=== PATIENT | female | born 1990 | race African-American/Black ===

== ENCOUNTER 2016-11-24 09:01 | Inpatient (IN) | payer MEDICAID ==
[~2016-11-24] VITALS: Ht 162.6 cm; Wt 47.6 kg
[2016-11-24 09:10] VITALS: BP 112/87
[2016-11-24] MEDS ORDERED: Ketorolac 30mg Inj IV ONE (09:30)
--- NOTE | 2016-11-24 09:39 | Emergency Room Report ---
History of Present Illness General Chief Complaint: Abdominal Pain Source: Patient Present Illness HPI This patient states that she had been admitted to [facility] for several days and was discharged yesterday. She states that she has pancreatitis. She states that she does not know why she has pancreatitis. She denies alcohol or drug use. She does not take any medications. She states that since 2 AM this morning she has had nausea, vomiting and epigastric pain. She states that she did have pancreatitis in the past but this is more than 3 years ago. She does not know why she is had a recurrence. She denies dysuria hematuria. She has no other complaints. Allergies: Coded Allergies: No Known Allergies (Unverified , 11/24/16) Patient History Past Medical History: see triage record, asthma, other - pancreatitis Social History: Denies: alcohol use, drug use, smoking Last Menstrual Period: 11/23/2016 Reviewed Nursing Documentation: PMH: Agreed, PSxH: Agreed Nursing Documentation-PMH Past Medical History: No History, Except For Hx Asthma: Yes Hx Gastrointestinal Problems: Yes - Pancreatitis Review of Systems All Other Systems: negative except mentioned in HPI Physical Exam Vital Signs Date Time Temp Pulse Resp B/P Pulse Ox O2 Delivery O2 Flow Rate FiO2 11/24/16 08:52 99.0 86 16 112/87 99 Room Air Sp02 EP Interpretation: reviewed, normal General Appearance: no apparent distress, alert, GCS 15, non-toxic Head: normocephalic, atraumatic Eyes: bilateral eye PERRL, bilateral eye normal inspection ENT: hearing grossly normal, normal pharynx, no angioedema, normal voice Neck: full range of motion, supple/symm/no masses Respiratory: chest non-tender, lungs clear, normal breath sounds, speaking full sentences Cardiovascular #1: regular rate, rhythm, no edema Gastrointestinal: soft, non-distended, no guarding, no rebound, tenderness - epigastrium Rectal: deferred Musculoskeletal: back normal, gait/station normal, normal range of motion, non- tender Neurologic: alert, oriented x3, responsive, motor strength/tone normal, sensory intact, speech normal Psychiatric: judgement/insight normal, memory normal, mood/affect normal, no suicidal/homicidal ideation Skin: normal color, no rash, warm/dry, well hydrated Medical Decision Making Diagnostic Impression: Primary Impression: Hepatitis ER Course This patient presents after being discharged from [facility] for what she reports as a pancreatitis. She states she had a history of pancreatitis but has not had a episode in 3 years. Initially, I had suspected ongoing pancreatitis. However, the patient has a normal lipase and elevated LFTs and bilirubin consistent with biliary obstruction. I suspect this patient has choledocholithiasis. I obtained a right upper cord an ultrasound to assess the liver and gallbladder which showed. . . Labs Test 11/24/16 09:15 11/24/16 09:20 Urine Color Red Urine Appearance Cloudy Urine pH 7 (4.5-8.0) Urine Specific [place] 1.010 (1.005-1.035) Urine Protein 3+ (NEGATIVE) Urine Glucose (UA) 2+ (NEGATIVE) Urine Ketones Negative (NEGATIVE) Urine Occult Blood 5+ (NEGATIVE) Urine Nitrite Negative (NEGATIVE) Urine Bilirubin Negative (NEGATIVE) Urine Urobilinogen Normal MG/DL (0.0-1.0) Urine Leukocyte Esterase 2+ (NEGATIVE) Urine RBC Tntc /HPF (0 - 2) Urine WBC 2-4 /HPF (0 - 2) Urine Squamous Epithelial Cells Few /LPF (NONE/OCC) Urine Bacteria Few /HPF (NONE) Urine HCG, Qualitative Negative Urine Opiates Screen Negative (NEGATIVE) Urine Barbiturates Screen Negative (NEGATIVE) Phencyclidine (PCP) Screen Negative (NEGATIVE) Urine Amphetamines Screen Negative (NEGATIVE) Urine Benzodiazepines Screen Positive (NEGATIVE) Urine Cocaine Screen Negative (NEGATIVE) Urine Marijuana (THC) Screen Negative (NEGATIVE) White Blood Count 20.8 K/UL (4.8-10.8) Red Blood Count 5.26 M/UL (4.20-5.40) Hemoglobin 15.5 G/DL (12.0-16.0) Hematocrit 50.5 % (37.0-47.0) Mean Corpuscular Volume 96 FL (80-99) Mean Corpuscular Hemoglobin 29.4 PG (27.0-31.0) Mean Corpuscular Hemoglobin Concent 30.7 G/DL (32.0-36.0) Red Cell Distribution Width 14.7 % (11.6-14.8) Platelet Count 384 K/UL (150-450) Mean Platelet Volume 5.8 FL (6.5-10.1) Neutrophils (%) (Auto) % (45.0-75.0) Lymphocytes (%) (Auto) % (20.0-45.0) Monocytes (%) (Auto) % (1.0-10.0) Eosinophils (%) (Auto) % (0.0-3.0) Basophils (%) (Auto) % (0.0-2.0) Differential Total Cells Counted 100 Neutrophils % (Manual) 93 % (45-75) Lymphocytes % (Manual) 4 % (20-45) Monocytes % (Manual) 3 % (1-10) Eosinophils % (Manual) 0 % (0-3) Basophils % (Manual) 0 % (0-2) Band Neutrophils 0 % (0-8) Platelet Estimate Adequate Platelet Morphology Normal Red Blood Cell Morphology Normal Sodium Level 133 mEQ/L (135-145) Potassium Level 4.3 mEQ/L (3.4-4.9) Chloride Level 89 mEQ/L (98-107) Carbon Dioxide Level 26 mEQ/L (20-30) Anion Gap 18 (5-15) Blood Urea Nitrogen 13 mg/dL (7-23) Creatinine 0.6 mg/dL (0.5-0.9) Estimat Glomerular Filtration Rate > 60 mL/min (>60) Glucose Level 119 mg/dL (74-106) Calcium Level 9.1 mg/dL (8.6-10.2) Total Bilirubin 2.9 mg/dL (0.0-1.2) Direct Bilirubin 0.8 mg/dL (0.1-0.3) Aspartate Amino Transf (AST/SGOT) 179 U/L (5-40) Alanine Aminotransferase (ALT/SGPT) 98 U/L (3-33) Alkaline Phosphatase 107 U/L (35-104) Total Protein 7.5 g/dL (6.6-8.7) Albumin 3.9 g/dL (3.5-5.2) Globulin 3.6 g/dL Albumin/Globulin Ratio 1.0 (1.0-2.7) Lipase 42 U/L (< 60) CT/MRI/US Diagnostic Results CT/MRI/US Diagnostic Results : Imaging Test Ordered: CT abd/pelvis, US RUQ Impression Nonvisualization of appendix due to anatomic and technical considerations described. While there is no overt evidence of acute appendicitis, subtle acute abnormalities may be missed. Repeat CT scan with full oral and IV contrast preparation recommended for more complete evaluation. Suggestion of minimal pelvic free fluid, nonspecific No evidence of acute pancreatitis Nonobstructive left nephrolithiasis Liver lesion may represent complex cyst or hemangioma. Other etiologies not excludable. Ultrasound correlation recommended. Probable small cyst right renal cortex Suggestion of one or more uterine fibroids Probable cervical nabothian cysts Pulmonary bibasal alveolar opacities compatible with but not specific for pneumonia RUQ US: negative for acute findings. See official report. Last Vital Signs Date Time Temp Pulse Resp B/P Pulse Ox O2 Delivery O2 Flow Rate FiO2 11/24/16 08:52 99.0 86 16 112/87 99 Room Air Disposition: ADMITTED INPATIENT Condition: Stable TRISTON PEREZ D.O. Nov 24, 2016 09:39
[2016-11-24 09:40] LABS: MEAN CORPUSCULAR HEMOGLOBIN 29.4 PG (27.0-31.0); MEAN CORPUSCULAR HGB CONC 30.7 G/DL (32.0-36.0); MEAN CORPUSCULAR VOLUME 96 FL (80-99); MEAN PLATELET VOLUME 5.8 FL (6.5-10.1); PLATELET COUNT 384 K/UL (150-450); RED BLOOD COUNT 5.26 M/UL (4.20-5.40); RED CELL DISTRIBUTION WIDTH 14.7 % (11.6-14.8); WHITE BLOOD COUNT 20.8 K/UL (4.8-10.8)
[2016-11-24 09:43] LABS: ALANINE AMINOTRANSFERASE 98 U/L (3-33); ANION GAP 18 (5-15); ASPARTATE AMINO TRANSFERASE 179 U/L (5-40); CALCIUM 9.1 mg/dL (8.6-10.2); CARBON DIOXIDE 26 mEQ/L (20-30); CHLORIDE 89 mEQ/L (98-107); CREATININE 0.6 mg/dL (0.5-0.9); GLOMERULAR FILTRATION RATE > 60 mL/min (>60); HEMOLYSIS 98; LIPASE 42 U/L (< 60); POTASSIUM 4.3 mEQ/L (3.4-4.9); SODIUM 133 mEQ/L (135-145); TOTAL PROTEIN 7.5 g/dL (6.6-8.7)
[2016-11-24 09:59] LABS: BILIRUBIN,DIRECT 0.8 mg/dL (0.1-0.3)
[2016-11-24] MEDS ORDERED: Morphine Sulfate 4mg/ml Inj IVP ONE ×3 (10:00→13:45)
[2016-11-24 10:22] LABS: BAND NEUTROPHILS % (MANUAL) 0 % (0-8); BASOPHILS % (MANUAL) 0 % (0-2); EOSINOPHILS % (MANUAL) 0 % (0-3); LYMPHOCYTES % (MANUAL) 4 % (20-45); NEUTROPHILS % (MANUAL) 93 % (45-75); PLATELET ESTIMATE ADEQUATE; PLATELET MORPHOLOGY NORMAL; TOTAL CELLS COUNTED 100
[2016-11-24 11:04] LABS: APPEARANCE,URINE CLOUDY; KETONES,URINE NEGATIVE (NEGATIVE); LEUKOCYTE ESTERASE ,URINE 2+ (NEGATIVE); NITRITE,URINE NEGATIVE (NEGATIVE); PH,URINE 7 (4.5-8.0); PROTEIN,URINE 3+ (NEGATIVE); UROBILINOGEN,URINE NORMAL MG/DL (0.0-1.0)
[2016-11-24 11:26] LABS: RBC,URINE TNTC /HPF (0 - 2)
[2016-11-24 11:27] LABS: BACTERIA,URINE FEW /HPF; SQUAMOUS EPITHELIAL CELL,UR FEW /LPF (NONE/OCC)
[2016-11-24] MEDS ORDERED: metroNIDAZOLE 500mg 100 ML IVPB ONE (11:45)
[2016-11-24] MEDS ORDERED: LORazepam Inj 2mg/ml 1ml IV ONE (11:45)
[2016-11-24] MEDS ORDERED: cefTRIAXone 1 GM in NS 55 ML IVPB ONE (11:45)
[2016-11-24 11:55] VITALS: BP 143/99
[2016-11-24] MEDS ORDERED: NKM (12:01)
--- NOTE | 2016-11-24 13:09 | Diagnostic Imaging Report ---
Indications: Epigastric abdominal pain, nausea and vomiting since 2 AM this morning, history of pancreatitis the patient Technique: Continuous helical CT imaging of the abdomen and pelvis was performed with automatic exposure control following administration of nonionic IV contrast only, on a Siemens sensation [address] scanner. Axial, coronal, sagittal images were reconstructed at 5 mm slice thickness. No oral contrast was administered per requesting physician's order, despite no contraindications listed in either submitted clinical data or tech note.. CTDI volume(s): 10 mGy Total DLP: 528 mGy-cm Findings: Comparison: None Lack of oral contrast limits evaluation of gastrointestinal tract, nondilated throughout. Paucity of body fat decreases inherent soft tissue contrast, further limiting evaluation. Cecum resides low in the right hemipelvis. Appendix not identified.. No obvious mural thickening, adjacent stranding, extraluminal gas or fluid collections identified, aside from suggestion of minimal free fluid in the dependent portion of the pelvis. 18 mm circumscribed low-attenuation focus in hepatic segment 7, with peripheral nodular focus of increased attenuation/enhancement. 4 mm nodular calcification in upper pole of left kidney. 5 mm in circumscribed low-attenuation focus lower pole right kidney. Bilateral renal collecting systems nondilated. Cluster of small circumscribed low attenuation foci in region of cervix. Suggestion of one or more circumscribed low-attenuation foci in the uterine myometrium. Gallbladder, pancreas, spleen, adrenal glands, unopacified ureters and urinary bladder, bilateral adnexal regions, vascular structures, retroperitoneum, mesentery, remainder visualized abdominopelvic anatomy unremarkable. Patchy ovular consolidation in the basal aspects of both pulmonary lower lobes, left greater than right. No focal skeletal abnormality identified. IMPRESSION: Nonvisualization of appendix due to anatomic and technical considerations described. While there is no overt evidence of acute appendicitis, subtle acute abnormalities may be missed. Repeat CT scan with full oral and IV contrast preparation recommended for more complete evaluation. Suggestion of minimal pelvic free fluid, nonspecific No evidence of acute pancreatitis Nonobstructive left nephrolithiasis Liver lesion may represent complex cyst or hemangioma. Other etiologies not excludable. Ultrasound correlation recommended. Probable small cyst right renal cortex Suggestion of one or more uterine fibroids Probable cervical nabothian cysts Pulmonary bibasal alveolar opacities compatible with but not specific for pneumonia
[2016-11-24 14:25] VITALS: BP 132/92
--- NOTE | 2016-11-24 14:38 | Diagnostic Imaging Report ---
Indications: Abdominal pain, elevated liver function tests Technique: Transabdominal real-time grayscale and duplex Doppler imaging of the upper abdomen and retroperitoneum was performed. Findings: Comparison: None. Liver normal size and surface contour, parenchymal echogenicity. 18 mm circumscribed echogenic nodule in posterior aspect of right hepatic lobe near the liver dome. Gallbladder unremarkable. No intraluminal stones or sludge. No mural thickening or adjacent fluid collections. Sonographic Leija sign negative.. Bile ducts normal caliber. Common bile duct 3 mm. Pancreas unremarkable. Spleen unremarkable. Right kidney unremarkable. Left kidney contains 8 mm echogenic shadowing focus in upper pole, otherwise unremarkable. Abdominal aorta, intrahepatic portion of inferior vena cava patent, normal caliber. Duplex Doppler imaging demonstrates antegrade flow in splenic, portal, hepatic veins. No ascites. IMPRESSION: Right hepatic lobe echogenic lesion most likely hemangioma. Multiphasic contrast-enhanced CT scan or MRI of the liver, liver mass protocol, recommended for further evaluation. Otherwise sonographically unremarkable liver, gallbladder, bile ducts, pancreas Nonobstructive left nephrolithiasis .
[2016-11-24] MEDS: HYDROmorphone 1mg/ml Carpuject IVP PRN ×2 (17:36→21:41)
[2016-11-24 19:53] VITALS: BP 110/69
--- NOTE | 2016-11-24 22:31 | Infectious Diseases Prog Note ---
Assessment/Plan Problems: (1) SIRS (systemic inflammatory response syndrome) Assessment & Plan: versus sepsis. No definite source yet. Could still be hepatobiliary source? Cruz-culture. Empiric cefepime and metronidazole. Check C. diff. (2) Pancreatitis Assessment & Plan: Per patinet. Lipase OK here. CT A/P noted. (3) Hepatitis Assessment & Plan: Moderate transaminitis. Follow-up LFT. Check acute hepatitis panel. Subjective Allergies: Coded Allergies: No Known Allergies (Unverified , 11/24/16) Objective Vital Signs Last 24 Hour Vital Signs Date Time Temp Pulse Resp B/P Pulse Ox O2 Delivery O2 Flow Rate FiO2 11/24/16 19:53 97.0 80 18 110/69 98 Room Air 11/24/16 14:25 98.5 84 18 132/92 99 Room Air 11/24/16 14:19 98.0 11/24/16 13:58 78 18 12/80 99 Room Air 11/24/16 11:55 86 16 143/99 99 Room Air 11/24/16 10:55 99.0 11/24/16 10:55 99.0 11/24/16 09:10 16 112/87 99 Room Air 11/24/16 08:52 99.0 86 16 112/87 99 Room Air Height (Feet): 5 Height (Inches): 4.00 Weight (Pounds): 105 Laboratory Tests Test 11/24/16 09:15 11/24/16 09:20 Urine Color Red Urine Appearance Cloudy Urine pH 7 (4.5-8.0) Urine Specific [place] 1.010 (1.005-1.035) Urine Protein 3+ (NEGATIVE) H Urine Glucose (UA) 2+ (NEGATIVE) H Urine Ketones Negative (NEGATIVE) Urine Occult Blood 5+ (NEGATIVE) H Urine Nitrite Negative (NEGATIVE) Urine Bilirubin Negative (NEGATIVE) Urine Urobilinogen Normal MG/DL (0.0-1.0) Urine Leukocyte Esterase 2+ (NEGATIVE) H Urine RBC Tntc /HPF (0 - 2) H Urine WBC 2-4 /HPF (0 - 2) Urine Squamous Epithelial Cells Few /LPF (NONE/OCC) Urine Bacteria Few /HPF (NONE) Urine HCG, Qualitative Negative Urine Opiates Screen Negative (NEGATIVE) Urine Barbiturates Screen Negative (NEGATIVE) Phencyclidine (PCP) Screen Negative (NEGATIVE) Urine Amphetamines Screen Negative (NEGATIVE) Urine Benzodiazepines Screen Positive (NEGATIVE) H Urine Cocaine Screen Negative (NEGATIVE) Urine Marijuana (THC) Screen Negative (NEGATIVE) White Blood Count 20.8 K/UL (4.8-10.8) H Red Blood Count 5.26 M/UL (4.20-5.40) Hemoglobin 15.5 G/DL (12.0-16.0) Hematocrit 50.5 % (37.0-47.0) H Mean Corpuscular Volume 96 FL (80-99) Mean Corpuscular Hemoglobin 29.4 PG (27.0-31.0) Mean Corpuscular Hemoglobin Concent 30.7 G/DL (32.0-36.0) L Red Cell Distribution Width 14.7 % (11.6-14.8) Platelet Count 384 K/UL (150-450) Mean Platelet Volume 5.8 FL (6.5-10.1) L Neutrophils (%) (Auto) % (45.0-75.0) Lymphocytes (%) (Auto) % (20.0-45.0) Monocytes (%) (Auto) % (1.0-10.0) Eosinophils (%) (Auto) % (0.0-3.0) Basophils (%) (Auto) % (0.0-2.0) Differential Total Cells Counted 100 Neutrophils % (Manual) 93 % (45-75) H Lymphocytes % (Manual) 4 % (20-45) L Monocytes % (Manual) 3 % (1-10) Eosinophils % (Manual) 0 % (0-3) Basophils % (Manual) 0 % (0-2) Band Neutrophils 0 % (0-8) Platelet Estimate Adequate Platelet Morphology Normal Red Blood Cell Morphology Normal Sodium Level 133 mEQ/L (135-145) L Potassium Level 4.3 mEQ/L (3.4-4.9) Chloride Level 89 mEQ/L (98-107) L Carbon Dioxide Level 26 mEQ/L (20-30) Anion Gap 18 (5-15) H Blood Urea Nitrogen 13 mg/dL (7-23) Creatinine 0.6 mg/dL (0.5-0.9) Estimat Glomerular Filtration Rate > 60 mL/min (>60) Glucose Level 119 mg/dL (74-106) H Calcium Level 9.1 mg/dL (8.6-10.2) Total Bilirubin 2.9 mg/dL (0.0-1.2) H Direct Bilirubin 0.8 mg/dL (0.1-0.3) H Aspartate Amino Transf (AST/SGOT) 179 U/L (5-40) H Alanine Aminotransferase (ALT/SGPT) 98 U/L (3-33) H Alkaline Phosphatase 107 U/L (35-104) H Total Protein 7.5 g/dL (6.6-8.7) Albumin 3.9 g/dL (3.5-5.2) Globulin 3.6 g/dL Albumin/Globulin Ratio 1.0 (1.0-2.7) Lipase 42 U/L (< 60) Current Medications Medications (Trade) Dose Ordered Sig/Duncan Route PRN Reason Start Time Stop Time Status Last Admin Dose Admin Acetaminophen (Tylenol) 650 mg Q6H PRN ORAL Mild Pain/Temp > 100.5 11/24/16 17:00 12/24/16 16:59 Hydromorphone HCl (Dilaudid) 1 mg Q4H PRN IVP For severe Pain 11/24/16 17:00 12/01/16 16:59 11/24/16 21:41 Ondansetron HCl (Zofran) 4 mg Q4H PRN IVP Nausea & Vomiting 11/24/16 16:15 12/24/16 16:14 11/24/16 21:40 Sodium Chloride (0.45% NS 1000ml) 1,000 ml @ 70 mls/hr [id number] IV 11/24/16 15:00 12/24/16 14:59 11/24/16 15:53 DONOVAN MILLAN Nov 24, 2016 22:31
[2016-11-24 23:21] VITALS: BP 106/63
[2016-11-25] MEDS: HYDROmorphone 1mg/ml Carpuject IVP PRN ×5 (02:17→21:25)
[2016-11-25 04:00] VITALS: BP 109/70
[2016-11-25] MEDS ORDERED: Cefepime 2gm ONE (04:00)
[2016-11-25] MEDS: metroNIDAZOLE 500mg 100 ML IVPB SCH ×3 (04:40→20:26)
[2016-11-25] MEDS: Cefepime HCl 2 GM in D5W 110 ML IVPB SCH ×2 (05:45→17:21)
[2016-11-25 07:06] LABS: ALANINE AMINOTRANSFERASE 161 U/L (3-33); ALBUMIN/GLOBULIN RATIO 1.1 (1.0-2.7); ANION GAP 16 (5-15); ASPARTATE AMINO TRANSFERASE 269 U/L (5-40); CALCIUM 8.3 mg/dL (8.6-10.2); CARBON DIOXIDE 25 mEQ/L (20-30); CHLORIDE 91 mEQ/L (98-107); CREATININE 0.5 mg/dL (0.5-0.9); GLOMERULAR FILTRATION RATE > 60 mL/min (>60); HEMOLYSIS 2; POTASSIUM 3.6 mEQ/L (3.4-4.9); SODIUM 132 mEQ/L (135-145); TOTAL PROTEIN 5.6 g/dL (6.6-8.7)
[2016-11-25 07:07] LABS: BASOPHILS % (AUTO) 0.8 % (0.0-2.0); EOSINOPHILS % (AUTO) 4.4 % (0.0-3.0); LYMPHOCYTES % (AUTO) 13.7 % (20.0-45.0); MEAN CORPUSCULAR HEMOGLOBIN 29.3 PG (27.0-31.0); MEAN CORPUSCULAR HGB CONC 30.6 G/DL (32.0-36.0); MEAN CORPUSCULAR VOLUME 96 FL (80-99); MEAN PLATELET VOLUME 6.1 FL (6.5-10.1); MONOCYTES % (AUTO) 6.7 % (1.0-10.0); NEUTROPHILS % (AUTO) 74.4 % (45.0-75.0); PLATELET COUNT 293 K/UL (150-450); RED BLOOD COUNT 4.39 M/UL (4.20-5.40); RED CELL DISTRIBUTION WIDTH 14.7 % (11.6-14.8)
[2016-11-25 07:22] LABS: BILIRUBIN,DIRECT 0.8 mg/dL (0.1-0.3)
[2016-11-25 08:00] VITALS: BP 111/65
--- NOTE | 2016-11-25 08:25 | Consultation ---
History of Present Illness General Date patient seen: Nov 25, 2016 Chief Complaint: Abdominal Pain Present Illness Allergies: Coded Allergies: No Known Allergies (Unverified , 11/24/16) Medication History Scheduled No Known Medications* (NKM - No Known Medications*), 0 ., (Reported) Patient History Healthcare decision maker NONE Resuscitation status Full Code Advanced Directive on File Physical Exam Last 24 Hour Vital Signs Date Time Temp Pulse Resp B/P Pulse Ox O2 Delivery O2 Flow Rate FiO2 11/25/16 04:00 97.4 78 18 109/70 94 Room Air 11/25/16 02:47 97.2 11/24/16 23:21 97.2 81 18 106/63 95 Room Air 11/24/16 19:53 97.0 80 18 110/69 98 Room Air 11/24/16 14:25 98.5 84 18 132/92 99 Room Air 11/24/16 14:19 98.0 11/24/16 13:58 78 18 12/80 99 Room Air 11/24/16 11:55 86 16 143/99 99 Room Air 11/24/16 10:55 99.0 11/24/16 10:55 99.0 11/24/16 09:10 16 112/87 99 Room Air 11/24/16 08:52 99.0 86 16 112/87 99 Room Air Intake and Output 11/24/16 11/25/16 18:59 06:59 Intake Total 2295 ml 700 ml Balance 2295 ml 700 ml Intake Oral 0 ml IV Total 2295 ml 700 ml # Voids 1 Laboratory Tests Test 11/24/16 09:15 11/24/16 09:20 11/25/16 05:20 Urine Color Red Urine Appearance Cloudy Urine pH 7 (4.5-8.0) Urine Specific [place] 1.010 (1.005-1.035) Urine Protein 3+ (NEGATIVE) H Urine Glucose (UA) 2+ (NEGATIVE) H Urine Ketones Negative (NEGATIVE) Urine Occult Blood 5+ (NEGATIVE) H Urine Nitrite Negative (NEGATIVE) Urine Bilirubin Negative (NEGATIVE) Urine Urobilinogen Normal MG/DL (0.0-1.0) Urine Leukocyte Esterase 2+ (NEGATIVE) H Urine RBC Tntc /HPF (0 - 2) H Urine WBC 2-4 /HPF (0 - 2) Urine Squamous Epithelial Cells Few /LPF (NONE/OCC) Urine Bacteria Few /HPF (NONE) Urine HCG, Qualitative Negative Urine Opiates Screen Negative (NEGATIVE) Urine Barbiturates Screen Negative (NEGATIVE) Phencyclidine (PCP) Screen Negative (NEGATIVE) Urine Amphetamines Screen Negative (NEGATIVE) Urine Benzodiazepines Screen Positive (NEGATIVE) H Urine Cocaine Screen Negative (NEGATIVE) Urine Marijuana (THC) Screen Negative (NEGATIVE) White Blood Count 20.8 K/UL (4.8-10.8) H 13.0 K/UL (4.8-10.8) H Red Blood Count 5.26 M/UL (4.20-5.40) 4.39 M/UL (4.20-5.40) Hemoglobin 15.5 G/DL (12.0-16.0) 12.9 G/DL (12.0-16.0) Hematocrit 50.5 % (37.0-47.0) H 42.1 % (37.0-47.0) Mean Corpuscular Volume 96 FL (80-99) 96 FL (80-99) Mean Corpuscular Hemoglobin 29.4 PG (27.0-31.0) 29.3 PG (27.0-31.0) Mean Corpuscular Hemoglobin Concent 30.7 G/DL (32.0-36.0) L 30.6 G/DL (32.0-36.0) L Red Cell Distribution Width 14.7 % (11.6-14.8) 14.7 % (11.6-14.8) Platelet Count 384 K/UL (150-450) 293 K/UL (150-450) Mean Platelet Volume 5.8 FL (6.5-10.1) L 6.1 FL (6.5-10.1) L Neutrophils (%) (Auto) % (45.0-75.0) 74.4 % (45.0-75.0) Lymphocytes (%) (Auto) % (20.0-45.0) 13.7 % (20.0-45.0) L Monocytes (%) (Auto) % (1.0-10.0) 6.7 % (1.0-10.0) Eosinophils (%) (Auto) % (0.0-3.0) 4.4 % (0.0-3.0) H Basophils (%) (Auto) % (0.0-2.0) 0.8 % (0.0-2.0) Differential Total Cells Counted 100 Neutrophils % (Manual) 93 % (45-75) H Lymphocytes % (Manual) 4 % (20-45) L Monocytes % (Manual) 3 % (1-10) Eosinophils % (Manual) 0 % (0-3) Basophils % (Manual) 0 % (0-2) Band Neutrophils 0 % (0-8) Platelet Estimate Adequate Platelet Morphology Normal Red Blood Cell Morphology Normal Sodium Level 133 mEQ/L (135-145) L 132 mEQ/L (135-145) L Potassium Level 4.3 mEQ/L (3.4-4.9) 3.6 mEQ/L (3.4-4.9) Chloride Level 89 mEQ/L (98-107) L 91 mEQ/L (98-107) L Carbon Dioxide Level 26 mEQ/L (20-30) 25 mEQ/L (20-30) Anion Gap 18 (5-15) H 16 (5-15) H Blood Urea Nitrogen 13 mg/dL (7-23) 11 mg/dL (7-23) Creatinine 0.6 mg/dL (0.5-0.9) 0.5 mg/dL (0.5-0.9) Estimat Glomerular Filtration Rate > 60 mL/min (>60) > 60 mL/min (>60) Glucose Level 119 mg/dL (74-106) H 62 mg/dL (74-106) L Calcium Level 9.1 mg/dL (8.6-10.2) 8.3 mg/dL (8.6-10.2) L Total Bilirubin 2.9 mg/dL (0.0-1.2) H 2.2 mg/dL (0.0-1.2) H Direct Bilirubin 0.8 mg/dL (0.1-0.3) H 0.8 mg/dL (0.1-0.3) H Aspartate Amino Transf (AST/SGOT) 179 U/L (5-40) H 269 U/L (5-40) H Alanine Aminotransferase (ALT/SGPT) 98 U/L (3-33) H 161 U/L (3-33) H Alkaline Phosphatase 107 U/L (35-104) H 98 U/L (35-104) Total Protein 7.5 g/dL (6.6-8.7) 5.6 g/dL (6.6-8.7) L Albumin 3.9 g/dL (3.5-5.2) 3.0 g/dL (3.5-5.2) L Globulin 3.6 g/dL 2.6 g/dL Albumin/Globulin Ratio 1.0 (1.0-2.7) 1.1 (1.0-2.7) Lipase 42 U/L (< 60) HIV (1&2) Antibody Rapid Negative (NEGATIVE) Hepatitis A IgM Antibody Pending Hepatitis B Surface Antigen Pending Hepatitis B Core IgM Antibody Pending Hepatitis C Antibody Pending Monoscreen Pending Height (Feet): 5 Height (Inches): 4.00 Weight (Pounds): 105 Medications Current Medications Medications (Trade) Dose Ordered Sig/Duncan Route PRN Reason Start Time Stop Time Status Last Admin Dose Admin Acetaminophen 650 mg 650 mg Q6H PRN ORAL Mild Pain/Temp > 100.5 11/24/16 17:00 12/24/16 16:59 Cefepime HCl/ Dextrose (Maxipime/D5W) 110 ml @ 220 mls/hr Q12H IVPB 11/25/16 06:00 12/02/16 05:59 11/25/16 05:45 Hydromorphone HCl (Dilaudid) 1 mg Q4H PRN IVP For severe Pain 11/24/16 17:00 12/01/16 16:59 11/25/16 07:47 Metronidazole 100 ml @ 100 mls/hr Q8H IVPB 11/25/16 05:00 12/02/16 04:59 11/25/16 04:40 Ondansetron HCl (Zofran) 4 mg Q4H PRN IVP Nausea & Vomiting 11/24/16 16:15 12/24/16 16:14 11/24/16 21:40 Sodium Chloride (0.45% NS 1000ml) 1,000 ml @ 70 mls/hr [id number] IV 11/24/16 15:00 12/24/16 14:59 11/25/16 05:45 Assessment/Plan Assessment/Plan (1) Intractable Abdominal pain (2) Gastritis vs Hepatitis vs Pancreatis Seen Dictated TYRON MENJIVAR Nov 25, 2016 08:25
[2016-11-25] MEDS ORDERED: LORazepam Inj 2mg/ml 1ml IV PRN ×2 (10:30)
[2016-11-25 12:00] VITALS: BP 102/62
--- NOTE | 2016-11-25 13:28 | Consultation ---
DATE OF CONSULTATION: 11/24/2016 PAIN MANAGEMENT CONSULTATION: CONSULTING PHYSICIAN: Randy Robertson M.D. REFERRING PHYSICIAN: Carlos A Dallas M.D. CHIEF COMPLAINT: Abdominal pain. HISTORY OF PRESENT ILLNESS: This is a 26-year-old female, who is being seen here in the Med/Surg floor of [facility] for initial comprehensive pain management consultation. The patient reporting that she has been having abdominal pain since last , it comes and goes, is an acute pain, rating at 10/10, describing as sharp pain, it is throbbing and stabbing pain, which increases with eating and drinking and is reduced with the Dilaudid 1 mg IV every 4 hours for severe pain. The patient reports that she has been admitted to [facility] four days ago and was discharged and reports that she was diagnosed with pancreatitis. She denies any alcohol or drug abuse and found to have severe nausea, vomiting, and epigastric pain and was readmitted. Waiting to be seen by bobtailer, has been seen by Infectious Disease, ruling out hepatitis. PAST MEDICAL HISTORY: Denies. MEDICATIONS: Does not taking any medications outpatient. Here in the hospital taking Dilaudid 1 mg IV every 4 hours p.r.n. for severe pain. ALLERGIES: No known drug allergies. SOCIAL HISTORY: Denies smoking, drinking alcohol, or drug abuse. REVIEW OF SYSTEMS: Denies rash, fever, chills, sweating, dizziness, drowsiness, blurred vision, sore throat, or change in weight. No shortness of breath or chest pain. No nausea, vomiting, or blood in the stool or urine. No bowel or bladder incontinence. No dysuria. She is complaining of abdominal pain. PHYSICAL EXAMINATION: GENERAL: Alert, awake, and oriented. VITAL SIGNS: Blood pressure 109/70, heart rate is 70, respirations 18, temperature is 97 degrees Fahrenheit. Height is 5 feet 4 inches. Weight 105 pounds. HEENT: PERRLA. NECK: Range of motion is full in all directions. No tenderness. No adenopathy. LUNGS: Decreased breath sounds bilaterally. HEART: S1 and S2, regular. ABDOMEN: Tenderness to palpation. EXTREMITIES: No cyanosis. No clubbing. No edema. NEUROLOGIC: No focal deficit. Assessment And Plan: This is a 26-year-old female with intractable abdominal pain rule out hepatitis versus pancreatitis versus gastritis. The patient will be continued on Dilaudid 1 mg IV every 4 hours p.r.n. for severe pain. and she is waiting to be seen by bobtailer. The patient was discussed with Dr. Robertson and Dr. Robertson concurred. We will follow the patient. Thank you very much for the courtesy of this consultation. Randy Robertson M.D. FELIX Denney DR: [place] JOB#: [id number] CC: [id number]
--- NOTE | 2016-11-25 15:53 | GI Initial Consult Note ---
History of Present Illness General Date patient seen: Nov 25, 2016 Time patient seen: 10:00 Reason for Hospitalization: Abdominal Pain Referring physician: BRIANA MENDOZA Reason for Consultation: HEPATITIS Present Illness HPI This patient states that she had been admitted to [facility] for several days and was discharged yesterday. She states that she has pancreatitis. She states that she does not know why she has pancreatitis. She denies alcohol or drug use. She does not take any medications. She states that since 2 AM this morning she has had nausea, vomiting and epigastric pain. She states that she did have pancreatitis in the past but this is more than 3 years ago. She does not know why she is had a recurrence. She denies dysuria hematuria. She has no other complaints. GI CONSULT: HPI as noted above. Pt seen on floor, awake A&Ox4 NAD with no active s/sx of N/V/D. C/o of tender epigastric pain. Denies any use of tobacco , ETOH, or drugs despite positive urine tox. Patient presents today with leukocytosis, transaminitis, elevated total bilirubin. Abd U/S shows hepatic lesion most likely hemangioma, see full report. Procedure: US ABD Complete Indications: Abdominal pain, elevated liver function tests IMPRESSION: Right hepatic lobe echogenic lesion most likely hemangioma. Multiphasic contrast-enhanced CT scan or MRI of the liver, liver mass protocol, recommended for further evaluation. Otherwise sonographically unremarkable liver, gallbladder, bile ducts, pancreas Nonobstructive left nephrolithiasis Home Meds Reported Medications No Known Medications* (NKM - No Known Medications*) ., 0 ., 0 Refills 11/24/16 Med list reviewed/reconciled: Yes Allergies: Coded Allergies: No Known Allergies (Unverified , 11/24/16) Patient History PMH Narrative Past Medical History: see triage record, asthma, other - pancreatitis Social History: Denies: alcohol use, drug use, smoking Last Menstrual Period: 11/23/2016 Reviewed Nursing Documentation: PMH: Agreed, PSxH: Agreed Nursing Documentation-PMH Past Medical History: No History, Except For Hx Asthma: Yes Hx Gastrointestinal Problems: Yes - Pancreatitis Social History: Denies: alcohol use, drug use, other, smoking Review of Systems All Other Systems: negative except mentioned in HPI Physical Exam Vital Signs Date Time Temp Pulse Resp B/P Pulse Ox O2 Delivery O2 Flow Rate FiO2 11/24/16 08:52 99.0 86 16 112/87 99 Room Air Sp02 EP Interpretation: reviewed Labs Laboratory Tests Test 11/25/16 05:20 White Blood Count 13.0 K/UL (4.8-10.8) H Red Blood Count 4.39 M/UL (4.20-5.40) Hemoglobin 12.9 G/DL (12.0-16.0) Hematocrit 42.1 % (37.0-47.0) Mean Corpuscular Volume 96 FL (80-99) Mean Corpuscular Hemoglobin 29.3 PG (27.0-31.0) Mean Corpuscular Hemoglobin Concent 30.6 G/DL (32.0-36.0) L Red Cell Distribution Width 14.7 % (11.6-14.8) Platelet Count 293 K/UL (150-450) Mean Platelet Volume 6.1 FL (6.5-10.1) L Neutrophils (%) (Auto) 74.4 % (45.0-75.0) Lymphocytes (%) (Auto) 13.7 % (20.0-45.0) L Monocytes (%) (Auto) 6.7 % (1.0-10.0) Eosinophils (%) (Auto) 4.4 % (0.0-3.0) H Basophils (%) (Auto) 0.8 % (0.0-2.0) Sodium Level 132 mEQ/L (135-145) L Potassium Level 3.6 mEQ/L (3.4-4.9) Chloride Level 91 mEQ/L (98-107) L Carbon Dioxide Level 25 mEQ/L (20-30) Anion Gap 16 (5-15) H Blood Urea Nitrogen 11 mg/dL (7-23) Creatinine 0.5 mg/dL (0.5-0.9) Estimat Glomerular Filtration Rate > 60 mL/min (>60) Glucose Level 62 mg/dL (74-106) L Calcium Level 8.3 mg/dL (8.6-10.2) L Total Bilirubin 2.2 mg/dL (0.0-1.2) H Direct Bilirubin 0.8 mg/dL (0.1-0.3) H Aspartate Amino Transf (AST/SGOT) 269 U/L (5-40) H Alanine Aminotransferase (ALT/SGPT) 161 U/L (3-33) H Alkaline Phosphatase 98 U/L (35-104) Total Protein 5.6 g/dL (6.6-8.7) L Albumin 3.0 g/dL (3.5-5.2) L Globulin 2.6 g/dL Albumin/Globulin Ratio 1.1 (1.0-2.7) Hepatitis A IgM Antibody Pending Hepatitis B Surface Antigen Pending Hepatitis B Core IgM Antibody Pending Hepatitis C Antibody Pending Monoscreen Pending General Appearance: well appearing, no apparent distress, alert, thin Head: normocephalic EENT: normal ENT inspection Neck: full range of motion, supple, thyroid normal Respiratory: normal breath sounds, no respiratory distress Cardiovascular: normal rate Gastrointestinal: normal inspection, soft, normal bowel sounds, tenderness - epigastric Neurologic: normal inspection, alert, oriented x3, responsive Psychiatric: normal inspection, judgement/insight normal, memory normal Skin: normal inspection, normal color, no rash, warm/dry Lymphatic: normal inspection, no adenopathy Current Medications Current Medications Medications (Trade) Dose Ordered Sig/Duncan Route PRN Reason Start Time Stop Time Status Last Admin Dose Admin Acetaminophen 650 mg 650 mg Q6H PRN ORAL Mild Pain/Temp > 100.5 11/24/16 17:00 12/24/16 16:59 Cefepime HCl/ Dextrose (Maxipime/D5W) 110 ml @ 220 mls/hr Q12H IVPB 11/25/16 06:00 12/02/16 05:59 11/25/16 05:45 Hydromorphone HCl (Dilaudid) 1 mg Q4H PRN IVP For severe Pain 11/24/16 17:00 12/01/16 16:59 11/25/16 12:01 Lorazepam (Ativan 2mg/ml 1ml) 1 mg Q4H PRN IV For Anxiety 11/25/16 10:30 12/02/16 10:29 Lorazepam (Ativan 2mg/ml 1ml) 2 mg ONCE PRN IV BEFORE MRI 11/25/16 10:30 11/25/16 23:55 11/25/16 12:01 Metronidazole 100 ml @ 100 mls/hr Q8H IVPB 11/25/16 05:00 12/02/16 04:59 11/25/16 12:01 Ondansetron HCl (Zofran) 4 mg Q4H PRN IVP Nausea & Vomiting 11/24/16 16:15 12/24/16 16:14 11/24/16 21:40 Sodium Chloride (0.45% NS 1000ml) 1,000 ml @ 70 mls/hr [id number] IV 11/24/16 15:00 12/24/16 14:59 11/25/16 05:45 GI: Plan Problems: (1) Severe malnutrition (2) Drug-induced hepatitis (3) Hepatic lesion (4) Hepatitis (5) SIRS (systemic inflammatory response syndrome) (6) Intractable vomiting Plan utox positive for benzodiazepines lipase negative abd US reviewed. APCT reviewed. fu abdominal MRI liver protocol to evaluate hepatic cyst/lesion >> pt has refused twice zofran prn cont ppi regular diet fu hepatitis panel repeat LFTs fu labs Discussed with Dr. Stein. Thank you for referring this patient, we will follow. rAianne Caballero N.P. Nov 25, 2016 15:53
[2016-11-25 16:28] VITALS: BP 98/62
[2016-11-25] MEDS ORDERED: 1/2 NS 1000ml IV ONE (16:29)
[2016-11-25] MEDS ORDERED: Tubing IV Secondary IV ONE (16:29)
--- NOTE | 2016-11-25 17:57 | Consultation ---
History of Present Illness General Chief Complaint: Abdominal Pain Referring physician: BRIANA MENDOZA Reason for Consultation: HEPATITIS Present Illness HPI 6-year-old female, who is being seen here in the Med/Surg floor of [facility] for initial comprehensive pain management consultation. The pt presented with severe anxiety prior to MRI and was give ativan 3mg total IV. I ordered 2mg and apparently did not work and she received another 1mg which was ordered by an CONSTRUCTION [employer]. Allergies: Coded Allergies: No Known Allergies (Unverified , 11/24/16) Medication History Scheduled No Known Medications* (NKM - No Known Medications*), 0 ., (Reported) Patient History Healthcare decision maker NONE Resuscitation status Full Code Advanced Directive on File Past Medical/Surgical History Past Medical/Surgical History: (1) Hepatitis (2) Pancreatitis (3) SIRS (systemic inflammatory response syndrome) (4) Severe malnutrition (5) Drug-induced hepatitis (6) Intractable vomiting (7) Hepatic lesion Review of Systems Constitutional: Reports: malaise, weakness Psychiatric: Reports: anxiety, emotional problems, prior hx Physical Exam General Appearance: alert, moderate distress Neurologic: alert, oriented x 3, responsive, depressed affect Last 24 Hour Vital Signs Date Time Temp Pulse Resp B/P Pulse Ox O2 Delivery O2 Flow Rate FiO2 11/25/16 16:28 97.9 101 20 98/62 97 Room Air 11/25/16 16:16 97.9 11/25/16 12:00 97.7 91 16 102/62 97 Room Air 11/25/16 08:00 97.5 81 14 111/65 98 Room Air 11/25/16 04:00 97.4 78 18 109/70 94 Room Air 11/24/16 23:21 97.2 81 18 106/63 95 Room Air 11/24/16 19:53 97.0 80 18 110/69 98 Room Air Intake and Output 11/24/16 11/25/16 19:00 07:00 Intake Total 2365 ml 700 ml Balance 2365 ml 700 ml Intake Oral 0 ml IV Total 2365 ml 700 ml # Voids 1 Laboratory Tests Test 11/25/16 05:20 White Blood Count 13.0 K/UL (4.8-10.8) H Red Blood Count 4.39 M/UL (4.20-5.40) Hemoglobin 12.9 G/DL (12.0-16.0) Hematocrit 42.1 % (37.0-47.0) Mean Corpuscular Volume 96 FL (80-99) Mean Corpuscular Hemoglobin 29.3 PG (27.0-31.0) Mean Corpuscular Hemoglobin Concent 30.6 G/DL (32.0-36.0) L Red Cell Distribution Width 14.7 % (11.6-14.8) Platelet Count 293 K/UL (150-450) Mean Platelet Volume 6.1 FL (6.5-10.1) L Neutrophils (%) (Auto) 74.4 % (45.0-75.0) Lymphocytes (%) (Auto) 13.7 % (20.0-45.0) L Monocytes (%) (Auto) 6.7 % (1.0-10.0) Eosinophils (%) (Auto) 4.4 % (0.0-3.0) H Basophils (%) (Auto) 0.8 % (0.0-2.0) Sodium Level 132 mEQ/L (135-145) L Potassium Level 3.6 mEQ/L (3.4-4.9) Chloride Level 91 mEQ/L (98-107) L Carbon Dioxide Level 25 mEQ/L (20-30) Anion Gap 16 (5-15) H Blood Urea Nitrogen 11 mg/dL (7-23) Creatinine 0.5 mg/dL (0.5-0.9) Estimat Glomerular Filtration Rate > 60 mL/min (>60) Glucose Level 62 mg/dL (74-106) L Calcium Level 8.3 mg/dL (8.6-10.2) L Total Bilirubin 2.2 mg/dL (0.0-1.2) H Direct Bilirubin 0.8 mg/dL (0.1-0.3) H Aspartate Amino Transf (AST/SGOT) 269 U/L (5-40) H Alanine Aminotransferase (ALT/SGPT) 161 U/L (3-33) H Alkaline Phosphatase 98 U/L (35-104) Total Protein 5.6 g/dL (6.6-8.7) L Albumin 3.0 g/dL (3.5-5.2) L Globulin 2.6 g/dL Albumin/Globulin Ratio 1.1 (1.0-2.7) Hepatitis A IgM Antibody Pending Hepatitis B Surface Antigen Pending Hepatitis B Core IgM Antibody Pending Hepatitis C Antibody Pending Monoscreen Pending Height (Feet): 5 Height (Inches): 4.00 Weight (Pounds): 105 Medications Current Medications Medications (Trade) Dose Ordered Sig/Duncan Route PRN Reason Start Time Stop Time Status Last Admin Dose Admin Acetaminophen 650 mg 650 mg Q6H PRN ORAL Mild Pain/Temp > 100.5 11/24/16 17:00 12/24/16 16:59 Cefepime HCl/ Dextrose (Maxipime/D5W) 110 ml @ 220 mls/hr Q12H IVPB 11/25/16 06:00 12/02/16 05:59 11/25/16 17:21 Hydromorphone HCl (Dilaudid) 1 mg Q4H PRN IVP For severe Pain 11/24/16 17:00 12/01/16 16:59 11/25/16 15:46 Lorazepam (Ativan 2mg/ml 1ml) 2 mg ONCE PRN IV BEFORE MRI 11/25/16 10:30 11/25/16 23:55 11/25/16 12:01 Lorazepam 1 mg 1 mg Q4H PRN IV For Anxiety 11/25/16 10:30 12/02/16 10:29 Metronidazole (Flagyl) 100 ml @ 100 mls/hr Q12HR IVPB 11/25/16 21:00 12/02/16 20:59 Ondansetron HCl (Zofran) 4 mg Q4H PRN IVP Nausea & Vomiting 11/24/16 16:15 12/24/16 16:14 11/25/16 15:46 Sodium Chloride (0.45% NS 1000ml) 1,000 ml @ 70 mls/hr [id number] IV 11/24/16 15:00 12/24/16 14:59 11/25/16 05:45 Assessment/Plan Status: not improved Assessment/Plan Anxiety d/o, claustrophobia stable Ceferino Saavedra M.D. Nov 25, 2016 17:57
[2016-11-25] MEDS: LORazepam Inj 2mg/ml 1ml IV PRN ×2 (19:14→23:12)
[2016-11-25 20:17] VITALS: BP 104/46
--- NOTE | 2016-11-25 22:17 | History and Physical Report ---
DATE OF ADMISSION: 11/24/2016 HISTORY OF PRESENT ILLNESS: The patient is admitted for hepatitis, uncontrolled nausea, and intractable vomiting. The patient basically complains of abdominal pain and vomiting for about a week. She went to the hospital, however, she checked up from the hospital and she came back because of having same symptoms again, mainly abdominal pain, nausea, and vomiting. The patient had hematemesis yesterday. The patient states that she also has a history of pancreatitis. Denies diarrhea. Denies chills. Denies cough. Denies shortness of breath. PAST MEDICAL HISTORY: History of pancreatitis, history of , history of vomiting. PAST SURGICAL HISTORY: None. MEDICATIONS: None. ALLERGIES: None. FAMILY HISTORY: Noncontributory. SOCIAL HISTORY: Denies smoking, alcohol, or illicit drugs. REVIEW OF SYSTEMS: HEENT: Denies headache. Respiratory: Denies shortness of breath. Denies cough. Cardiovascular: Denies chest pain or orthopnea. Gastrointestinal: Reports abdominal pain and vomiting blood for the past couple of days. Denies constipation. Extremities: Denies pain in the lower extremities. Central Nervous System: Denies change in vision or speech pattern. PHYSICAL EXAMINATION: VITAL SIGNS: Temperature 97 degrees, pulse 80, and blood pressure 110/69. HEENT: PERRLA. NECK: Supple. No lymphadenopathy. CHEST: Clear to auscultation. GASTROINTESTINAL: Epigastric tenderness and rebound. Abdomen is soft. No organomegaly. EXTREMITIES: No edema. Moves all four extremities. LABORATORY DATA: Labs shows WBC of 20.8, hemoglobin of 15.5, and platelets 384,000. Sodium 133, potassium 4.3, BUN of 13, creatinine 0.6, and glucose of 119. Total bilirubin of 2.9. AST of 179, ALT of 89, and alkaline phosphatase of 107. ASSESSMENT AND PLAN: 1. Elevated leukocytosis. 2. Elevated liver function tests. 3. Hepatitis. 4. Leukocytosis, rule out sepsis. 5. Hematemesis. 6. Vomiting. 7. History of pancreatitis. PLAN: I have asked Dr. Robertson, Dr. Stein, Dr. Sharma, Dr. Lehman, and Dr. Saavedra to see the patient for the above-mentioned diagnosis and treatment. Ali Enrique [place] DR: ATIF JOB#: [id number] CC:
--- NOTE | 2016-11-25 23:38 | Infectious Diseases Prog Note ---
Assessment/Plan Problems: (1) SIRS (systemic inflammatory response syndrome) Assessment & Plan: versus sepsis. Could still be hepatobiliary source? Continue with empiric cefepime and metronidazole. Follow-up C. diff and Cx's. (2) Pancreatitis Assessment & Plan: Per patinet. Lipase OK here. CT A/P noted. (3) Hepatitis Assessment & Plan: Transaminitis worse. Acute hepatitis panel negative. Awaiting MRI - patient refused? Subjective Allergies: Coded Allergies: No Known Allergies (Unverified , 11/24/16) Objective Vital Signs Last 24 Hour Vital Signs Date Time Temp Pulse Resp B/P Pulse Ox O2 Delivery O2 Flow Rate FiO2 11/25/16 21:55 99.0 11/25/16 21:29 99.0 11/25/16 20:17 101.7 40 20 104/46 96 Room Air 11/25/16 16:28 97.9 101 20 98/62 97 Room Air 11/25/16 12:00 97.7 91 16 102/62 97 Room Air 11/25/16 08:00 97.5 81 14 111/65 98 Room Air 11/25/16 04:00 97.4 78 18 109/70 94 Room Air Height (Feet): 5 Height (Inches): 4.00 Weight (Pounds): 105 Laboratory Tests Test 11/25/16 05:20 White Blood Count 13.0 K/UL (4.8-10.8) H Red Blood Count 4.39 M/UL (4.20-5.40) Hemoglobin 12.9 G/DL (12.0-16.0) Hematocrit 42.1 % (37.0-47.0) Mean Corpuscular Volume 96 FL (80-99) Mean Corpuscular Hemoglobin 29.3 PG (27.0-31.0) Mean Corpuscular Hemoglobin Concent 30.6 G/DL (32.0-36.0) L Red Cell Distribution Width 14.7 % (11.6-14.8) Platelet Count 293 K/UL (150-450) Mean Platelet Volume 6.1 FL (6.5-10.1) L Neutrophils (%) (Auto) 74.4 % (45.0-75.0) Lymphocytes (%) (Auto) 13.7 % (20.0-45.0) L Monocytes (%) (Auto) 6.7 % (1.0-10.0) Eosinophils (%) (Auto) 4.4 % (0.0-3.0) H Basophils (%) (Auto) 0.8 % (0.0-2.0) Sodium Level 132 mEQ/L (135-145) L Potassium Level 3.6 mEQ/L (3.4-4.9) Chloride Level 91 mEQ/L (98-107) L Carbon Dioxide Level 25 mEQ/L (20-30) Anion Gap 16 (5-15) H Blood Urea Nitrogen 11 mg/dL (7-23) Creatinine 0.5 mg/dL (0.5-0.9) Estimat Glomerular Filtration Rate > 60 mL/min (>60) Glucose Level 62 mg/dL (74-106) L Calcium Level 8.3 mg/dL (8.6-10.2) L Total Bilirubin 2.2 mg/dL (0.0-1.2) H Direct Bilirubin 0.8 mg/dL (0.1-0.3) H Aspartate Amino Transf (AST/SGOT) 269 U/L (5-40) H Alanine Aminotransferase (ALT/SGPT) 161 U/L (3-33) H Alkaline Phosphatase 98 U/L (35-104) Total Protein 5.6 g/dL (6.6-8.7) L Albumin 3.0 g/dL (3.5-5.2) L Globulin 2.6 g/dL Albumin/Globulin Ratio 1.1 (1.0-2.7) Hepatitis A IgM Antibody Pending Hepatitis B Surface Antigen Pending Hepatitis B Core IgM Antibody Pending Hepatitis C Antibody Pending Monoscreen Pending Current Medications Medications (Trade) Dose Ordered Sig/Duncan Route PRN Reason Start Time Stop Time Status Last Admin Dose Admin Acetaminophen 650 mg 650 mg Q6H PRN ORAL Mild Pain/Temp > 100.5 11/24/16 17:00 12/24/16 16:59 11/25/16 20:30 Cefepime HCl/ Dextrose (Maxipime/D5W) 110 ml @ 220 mls/hr Q12H IVPB 11/25/16 06:00 12/02/16 05:59 11/25/16 17:21 Hydromorphone HCl (Dilaudid) 1 mg Q4H PRN IVP For severe Pain 11/24/16 17:00 12/01/16 16:59 11/25/16 21:25 Lorazepam (Ativan 2mg/ml 1ml) 2 mg ONCE PRN IV BEFORE MRI 11/25/16 10:30 11/25/16 23:55 11/25/16 12:01 Lorazepam 1 mg 1 mg Q4H PRN IV For Anxiety 11/25/16 10:30 12/02/16 10:29 11/25/16 23:12 Metronidazole (Flagyl) 100 ml @ 100 mls/hr Q12HR IVPB 11/25/16 21:00 12/02/16 20:59 11/25/16 20:26 Ondansetron HCl (Zofran) 4 mg Q4H PRN IVP Nausea & Vomiting 11/24/16 16:15 12/24/16 16:14 11/25/16 15:46 Sodium Chloride (0.45% NS 1000ml) 1,000 ml @ 70 mls/hr [id number] IV 11/24/16 15:00 12/24/16 14:59 11/25/16 05:45 DONOVAN MILLAN Nov 25, 2016 23:38
[2016-11-26 00:21] VITALS: BP 95/48
[2016-11-26 04:00] VITALS: BP 100/68
[2016-11-26] MEDS: HYDROmorphone 1mg/ml Carpuject IVP PRN ×6 (05:43→23:41)
[2016-11-26] MEDS: Cefepime HCl 2 GM in D5W 110 ML IVPB SCH (05:43)
[2016-11-26] MEDS: LORazepam Inj 2mg/ml 1ml IV PRN ×4 (06:51→23:40)
[2016-11-26 07:26] LABS: MEAN CORPUSCULAR HEMOGLOBIN 29.9 PG (27.0-31.0); MEAN CORPUSCULAR VOLUME 96 FL (80-99); MEAN PLATELET VOLUME 6.6 FL (6.5-10.1); PLATELET COUNT 254 K/UL (150-450); RED CELL DISTRIBUTION WIDTH 14.3 % (11.6-14.8); WHITE BLOOD COUNT 15.5 K/UL (4.8-10.8)
[2016-11-26 07:57] LABS: ANION GAP 14 (5-15); CALCIUM 8.7 mg/dL (8.6-10.2); CARBON DIOXIDE 26 mEQ/L (20-30); CHLORIDE 93 mEQ/L (98-107); CREATININE 1.7 mg/dL (0.5-0.9); GLOMERULAR FILTRATION RATE 44.8 mL/min (>60); HEMOLYSIS 3; POTASSIUM 4.3 mEQ/L (3.4-4.9); SODIUM 133 mEQ/L (135-145); TOTAL PROTEIN 6.5 g/dL (6.6-8.7)
[2016-11-26 08:00] VITALS: BP 100/62
[2016-11-26 08:12] LABS: BILIRUBIN,DIRECT 0.5 mg/dL (0.1-0.3)
[2016-11-26] MEDS: metroNIDAZOLE 500mg 100 ML IVPB SCH (08:46)
--- NOTE | 2016-11-26 08:51 | General Progress Note ---
Assessment/Plan Assessment/Plan (1) Intractable Abdominal pain (2) Hepatitis (3) Pancreatitis The patient will be continued on Dilaudid and is followed by food product inspector. The patient was discussedwith Dr. Robertson and Dr. Robertson concurred. Subjective Date patient seen: Nov 26, 2016 Time patient seen: 07:00 - am Allergies: Coded Allergies: No Known Allergies (Unverified , 11/24/16) Subjective REVIEW OF SYSTEMS: Denies rash, fever, chills, sweating, dizziness, drowsiness, blurred vision, sore throat, or change in weight. No shortness of breath or chest pain. No nausea, vomiting, or blood in the stool or urine. No bowel or bladder incontinence. No dysuria. She is complaining of abdominal pain. SUBJECTIVE: Patient continues to c/o abdominal pain which is a 10/10 and reduced on the Dilaudid. GI continues to f/u on the patient. Objective Last 24 Hour Vital Signs Date Time Temp Pulse Resp B/P Pulse Ox O2 Delivery O2 Flow Rate FiO2 11/26/16 08:00 97.3 68 18 100/62 99 Room Air 11/26/16 06:13 98.7 11/26/16 04:00 98.7 70 19 100/68 86 Room Air 11/26/16 00:21 98.2 95 19 95/48 100 Room Air 11/25/16 21:29 99.0 11/25/16 20:17 101.7 40 20 104/46 96 Room Air 11/25/16 16:28 97.9 101 20 98/62 97 Room Air 11/25/16 12:00 97.7 91 16 102/62 97 Room Air Intake and Output 11/25/16 11/26/16 19:00 07:00 Intake Total 1040 ml 70 ml Balance 1040 ml 70 ml Intake Oral 240 ml IV Total 800 ml 70 ml # Voids 3 1 # Bowel Movements 1 Laboratory Tests 11/26/16 06:20: White Blood Count 15.5H, Red Blood Count 4.80, Hemoglobin 14.3, Hematocrit 46.3 , Mean Corpuscular Volume 96, Mean Corpuscular Hemoglobin 29.9, Mean Corpuscular Hemoglobin Concent 31.0L, Red Cell Distribution Width 14.3, Platelet Count 254, Mean Platelet Volume 6.6, Neutrophils (%) (Auto) , Lymphocytes (%) (Auto) , Monocytes (%) (Auto) , Eosinophils (%) (Auto) , Basophils (%) (Auto) , Neutrophils % (Manual) [Pending], Lymphocytes % (Manual) [Pending], Platelet Estimate [Pending], Platelet Morphology [Pending], Sodium Level 133L, Potassium Level 4.3, Chloride Level 93L, Carbon Dioxide Level 26, Anion Gap 14, Blood Urea Nitrogen 21, Creatinine 1.7#H, Estimat Glomerular Filtration Rate 44.8, Glucose Level 120H, Calcium Level 8.7, Total Bilirubin 1.2 , Direct Bilirubin [Pending], Aspartate Amino Transf (AST/SGOT) [Pending], Alanine Aminotransferase (ALT/SGPT) [Pending], Alkaline Phosphatase 126H, Total Protein 6.5L, Albumin 3.4L, Globulin 3.1, Albumin/Globulin Ratio 1.0 Height (Feet): 5 Height (Inches): 4.00 Weight (Pounds): 105 Objective GENERAL: Alert, awake, and oriented. HEENT: PERRLA. NECK: Range of motion is full in all directions. No tenderness. No adenopathy. LUNGS: Decreased breath sounds bilaterally. HEART: S1 and S2, regular. ABDOMEN: Tenderness to palpation. EXTREMITIES: No cyanosis. No clubbing. No edema. NEUROLOGIC: No changes. TYRON MENJIVAR Nov 26, 2016 08:51
[2016-11-26 09:04] LABS: ALANINE AMINOTRANSFERASE > 7000 U/L (3-33); ASPARTATE AMINO TRANSFERASE > 7000 U/L (5-40)
[2016-11-26 09:35] LABS: EOSINOPHILS % (MANUAL) 1 % (0-3); LYMPHOCYTES % (MANUAL) 8 % (20-45); NEUTROPHILS % (MANUAL) 89 % (45-75); TOTAL CELLS COUNTED 100
[2016-11-26 09:36] LABS: HYPOCHROMASIA 1+
[2016-11-26 09:53] LABS: BAND NEUTROPHILS % (MANUAL) 0 % (0-8); BASOPHILS % (MANUAL) 0 % (0-2); PLATELET ESTIMATE ADEQUATE; PLATELET MORPHOLOGY NORMAL
--- NOTE | 2016-11-26 10:17 | General Progress Note ---
Assessment/Plan Problem List: (1) Pancreatitis ICD Codes: K85.90 - Acute pancreatitis without necrosis or infection, unspecified SNOMED: 42789751 (2) Hepatitis ICD Codes: K75.9 - Inflammatory liver disease, unspecified SNOMED: 109880010 (3) Intractable vomiting ICD Codes: R11.10 - Vomiting, unspecified SNOMED: 027063542, 890968459 Status: progressing Assessment/Plan afebrile no vomiting today vitals stable will discuss w gi re finidings and work up Subjective ROS Limited/Unobtainable: Yes Constitutional: Reports: no symptoms Allergies: Coded Allergies: No Known Allergies (Unverified , 11/24/16) Objective Last 24 Hour Vital Signs Date Time Temp Pulse Resp B/P Pulse Ox O2 Delivery O2 Flow Rate FiO2 11/26/16 08:00 97.3 68 18 100/62 99 Room Air 11/26/16 06:13 98.7 11/26/16 04:00 98.7 70 19 100/68 86 Room Air 11/26/16 00:21 98.2 95 19 95/48 100 Room Air 11/25/16 21:29 99.0 11/25/16 20:17 101.7 40 20 104/46 96 Room Air 11/25/16 16:28 97.9 101 20 98/62 97 Room Air 11/25/16 12:00 97.7 91 16 102/62 97 Room Air Intake and Output 11/25/16 11/26/16 19:00 07:00 Intake Total 1040 ml 70 ml Balance 1040 ml 70 ml Intake Oral 240 ml IV Total 800 ml 70 ml # Voids 3 1 # Bowel Movements 1 Laboratory Tests 11/26/16 06:20: White Blood Count 15.5H, Red Blood Count 4.80, Hemoglobin 14.3, Hematocrit 46.3 , Mean Corpuscular Volume 96, Mean Corpuscular Hemoglobin 29.9, Mean Corpuscular Hemoglobin Concent 31.0L, Red Cell Distribution Width 14.3, Platelet Count 254, Mean Platelet Volume 6.6, Neutrophils (%) (Auto) , Lymphocytes (%) (Auto) , Monocytes (%) (Auto) , Eosinophils (%) (Auto) , Basophils (%) (Auto) , Differential Total Cells Counted 100, Neutrophils % ( Manual) 89H, Lymphocytes % (Manual) 8L, Monocytes % (Manual) 2, Eosinophils % ( Manual) 1, Basophils % (Manual) 0, Band Neutrophils 0, Platelet Estimate Adequate, Platelet Morphology Normal, Hypochromasia 1+, Sodium Level 133L, Potassium Level 4.3, Chloride Level 93L, Carbon Dioxide Level 26, Anion Gap 14, Blood Urea Nitrogen 21, Creatinine 1.7#H, Estimat Glomerular Filtration Rate 44.8, Glucose Level 120H, Calcium Level 8.7, Total Bilirubin 1.2, Direct Bilirubin 0.5H, Aspartate Amino Transf (AST/SGOT) > 7000H, Alanine Aminotransferase (ALT/SGPT) > 7000H, Alkaline Phosphatase 126H, Total Protein 6.5L, Albumin 3.4L, Globulin 3.1, Albumin/Globulin Ratio 1.0 Height (Feet): 5 Height (Inches): 4.00 Weight (Pounds): 105 EENT: PERRL/EOMI Neck: supple Cardiovascular: normal rate Respiratory/Chest: lungs clear Abdomen: soft Carlos A Dallas MD Nov 26, 2016 10:17
[2016-11-26 11:48] LABS: AMMONIA 36 umol/L (11-51)
[2016-11-26 11:54] LABS: ALBUMIN/GLOBULIN RATIO 1.3 (1.0-2.7); ANION GAP 16 (5-15); CALCIUM 8.7 mg/dL (8.6-10.2); CARBON DIOXIDE 24 mEQ/L (20-30); CHLORIDE 93 mEQ/L (98-107); CREATININE 1.6 mg/dL (0.5-0.9); POTASSIUM 4.7 mEQ/L (3.4-4.9); SODIUM 133 mEQ/L (135-145); TOTAL PROTEIN 5.9 g/dL (6.6-8.7)
[2016-11-26 12:00] VITALS: BP 118/76
[2016-11-26] MEDS: Piperacillin/Tazobactam 3.375 GM in D5W 110 ML IV SCH ×2 (12:00→22:06)
[2016-11-26 12:07] LABS: ALANINE AMINOTRANSFERASE > 7000 U/L (3-33); ASPARTATE AMINO TRANSFERASE > 7000 U/L (5-40)
[2016-11-26 12:41] LABS: BILIRUBIN,DIRECT 0.4 mg/dL (0.1-0.3); HEMOLYSIS 24
--- NOTE | 2016-11-26 14:08 | GI Progress Note ---
Assessment/Plan Problems: (1) Shock liver ICD Codes: K72.00 - Acute and subacute hepatic failure without coma SNOMED: 961178269 (2) Hepatic lesion ICD Codes: K76.9 - Liver disease, unspecified SNOMED: 927240466 (3) Intractable vomiting ICD Codes: R11.10 - Vomiting, unspecified SNOMED: 437678613, 049669724 (4) Severe malnutrition ICD Codes: E43 - Unspecified severe protein-calorie malnutrition SNOMED: 41454722 (5) Pancreatitis ICD Codes: K85.90 - Acute pancreatitis without necrosis or infection, unspecified SNOMED: 30866288 (6) Hepatitis ICD Codes: K75.9 - Inflammatory liver disease, unspecified SNOMED: 861287072 (7) SIRS (systemic inflammatory response syndrome) ICD Codes: R65.10 - Systemic inflammatory response syndrome (SIRS) of non- infectious origin without acute organ dysfunction SNOMED: 034600945 Status: unchanged Status Narrative Discussed with Dr. Stein. Assessment/Plan shock liver 2/2 unknown etiology >> AST/ALT 7000+ (lab draw repeated) utox positive for benzodiazepines >> pt had received Ativan lipase negative abd US reviewed. APCT reviewed. fu abdominal MRI liver protocol to evaluate hepatic cyst/lesion >> pt has refused twice hep panel >> negative abx zofran prn cont ppi regular diet repeat LFTs fu labs Subjective Gastrointestinal/Abdominal: Reports: abdominal pain Objective Last 24 Hour Vital Signs Date Time Temp Pulse Resp B/P Pulse Ox O2 Delivery O2 Flow Rate FiO2 11/26/16 12:00 97.0 67 18 118/76 99 11/26/16 11:21 97.3 11/26/16 08:00 97.3 68 18 100/62 99 Room Air 11/26/16 04:00 98.7 70 19 100/68 86 Room Air 11/26/16 00:21 98.2 95 19 95/48 100 Room Air 11/25/16 21:29 99.0 11/25/16 20:17 101.7 40 20 104/46 96 Room Air 11/25/16 16:28 97.9 101 20 98/62 97 Room Air Intake and Output 11/25/16 11/26/16 19:00 07:00 Intake Total 1040 ml 70 ml Balance 1040 ml 70 ml Intake Oral 240 ml IV Total 800 ml 70 ml # Voids 3 1 # Bowel Movements 1 Laboratory Tests Test 11/26/16 06:20 11/26/16 11:00 White Blood Count 15.5 K/UL (4.8-10.8) H Red Blood Count 4.80 M/UL (4.20-5.40) Hemoglobin 14.3 G/DL (12.0-16.0) Hematocrit 46.3 % (37.0-47.0) Mean Corpuscular Volume 96 FL (80-99) Mean Corpuscular Hemoglobin 29.9 PG (27.0-31.0) Mean Corpuscular Hemoglobin Concent 31.0 G/DL (32.0-36.0) L Red Cell Distribution Width 14.3 % (11.6-14.8) Platelet Count 254 K/UL (150-450) Mean Platelet Volume 6.6 FL (6.5-10.1) Neutrophils (%) (Auto) % (45.0-75.0) Lymphocytes (%) (Auto) % (20.0-45.0) Monocytes (%) (Auto) % (1.0-10.0) Eosinophils (%) (Auto) % (0.0-3.0) Basophils (%) (Auto) % (0.0-2.0) Differential Total Cells Counted 100 Neutrophils % (Manual) 89 % (45-75) H Lymphocytes % (Manual) 8 % (20-45) L Monocytes % (Manual) 2 % (1-10) Eosinophils % (Manual) 1 % (0-3) Basophils % (Manual) 0 % (0-2) Band Neutrophils 0 % (0-8) Platelet Estimate Adequate Platelet Morphology Normal Hypochromasia 1+ Sodium Level 133 mEQ/L (135-145) L 133 mEQ/L (135-145) L Potassium Level 4.3 mEQ/L (3.4-4.9) 4.7 mEQ/L (3.4-4.9) Chloride Level 93 mEQ/L (98-107) L 93 mEQ/L (98-107) L Carbon Dioxide Level 26 mEQ/L (20-30) 24 mEQ/L (20-30) Anion Gap 14 (5-15) 16 (5-15) H Blood Urea Nitrogen 21 mg/dL (7-23) 21 mg/dL (7-23) Creatinine 1.7 mg/dL (0.5-0.9) #H 1.6 mg/dL (0.5-0.9) H Estimat Glomerular Filtration Rate 44.8 mL/min (>60) 48.0 mL/min (>60) Glucose Level 120 mg/dL (74-106) H 114 mg/dL (74-106) H Calcium Level 8.7 mg/dL (8.6-10.2) 8.7 mg/dL (8.6-10.2) Total Bilirubin 1.2 mg/dL (0.0-1.2) 1.1 mg/dL (0.0-1.2) Direct Bilirubin 0.5 mg/dL (0.1-0.3) H 0.4 mg/dL (0.1-0.3) H Aspartate Amino Transf (AST/SGOT) > 7000 U/L (5-40) H > 7000 U/L (5-40) H Alanine Aminotransferase (ALT/SGPT) > 7000 U/L (3-33) H > 7000 U/L (3-33) H Alkaline Phosphatase 126 U/L (35-104) H 118 U/L (35-104) H Total Protein 6.5 g/dL (6.6-8.7) L 5.9 g/dL (6.6-8.7) L Albumin 3.4 g/dL (3.5-5.2) L 3.4 g/dL (3.5-5.2) L Globulin 3.1 g/dL 2.5 g/dL Albumin/Globulin Ratio 1.0 (1.0-2.7) 1.3 (1.0-2.7) Ammonia 36 umol/L (11-51) Acetaminophen Level < 10 ug/mL (10-30) L Height (Feet): 5 Height (Inches): 4.00 Weight (Pounds): 105 General Appearance: no apparent distress, alert, thin Cardiovascular: normal rate Respiratory/Chest: normal breath sounds, no respiratory distress Abdominal Exam: normal bowel sounds, non tender, tender Extremities: normal range of motion Arianne Caballero N.Diomedes Nov 26, 2016 14:08
[2016-11-26 14:20] LABS: MONOTEST Negative (Negative)
[2016-11-26 15:41] VITALS: BP 93/59
[2016-11-26] MEDS ORDERED: NS 275ml ONE (15:44)
[2016-11-26] MEDS ORDERED: Tubing IV Secondary IV ONE (15:44)
[2016-11-26] MEDS ORDERED: 1/2 NS 1000ml IV ONE (15:44)
[2016-11-26 20:00] VITALS: BP 98/66
--- NOTE | 2016-11-26 21:43 | Infectious Diseases Prog Note ---
Assessment/Plan Problems: (1) SIRS (systemic inflammatory response syndrome) Assessment & Plan: versus sepsis. WBC back up. Could still be hepatobiliary source? Empiric Zosyn. No C. diff yet. Follow-up topete-culture. Clinically about same but transaminases worse. (2) Pancreatitis Assessment & Plan: Per patinet. Lipase OK here. CT A/P noted. (3) Hepatitis Assessment & Plan: Transaminitis much worse. Patient refusing MRI. Due to metronidazole? Switch metronidazole and cefepime to Zosyn for empiric coverage. Acute hepatitis panel negative. HIV negative. Check a monospot but less likely mono. Subjective Allergies: Coded Allergies: No Known Allergies (Unverified , 11/24/16) Objective Vital Signs Last 24 Hour Vital Signs Date Time Temp Pulse Resp B/P Pulse Ox O2 Delivery O2 Flow Rate FiO2 11/26/16 20:00 97.2 11/26/16 20:00 97.7 76 20 98/66 97 Room Air 11/26/16 17:27 Nasal Cannula 2.0 28 11/26/16 15:41 97.2 70 16 93/59 98 Room Air 11/26/16 12:00 97.0 67 18 118/76 99 11/26/16 08:00 97.3 68 18 100/62 99 Room Air 11/26/16 04:00 98.7 70 19 100/68 86 Room Air 11/26/16 00:21 98.2 95 19 95/48 100 Room Air Height (Feet): 5 Height (Inches): 4.00 Weight (Pounds): 105 Laboratory Tests Test 11/26/16 06:20 11/26/16 11:00 White Blood Count 15.5 K/UL (4.8-10.8) H Red Blood Count 4.80 M/UL (4.20-5.40) Hemoglobin 14.3 G/DL (12.0-16.0) Hematocrit 46.3 % (37.0-47.0) Mean Corpuscular Volume 96 FL (80-99) Mean Corpuscular Hemoglobin 29.9 PG (27.0-31.0) Mean Corpuscular Hemoglobin Concent 31.0 G/DL (32.0-36.0) L Red Cell Distribution Width 14.3 % (11.6-14.8) Platelet Count 254 K/UL (150-450) Mean Platelet Volume 6.6 FL (6.5-10.1) Neutrophils (%) (Auto) % (45.0-75.0) Lymphocytes (%) (Auto) % (20.0-45.0) Monocytes (%) (Auto) % (1.0-10.0) Eosinophils (%) (Auto) % (0.0-3.0) Basophils (%) (Auto) % (0.0-2.0) Differential Total Cells Counted 100 Neutrophils % (Manual) 89 % (45-75) H Lymphocytes % (Manual) 8 % (20-45) L Monocytes % (Manual) 2 % (1-10) Eosinophils % (Manual) 1 % (0-3) Basophils % (Manual) 0 % (0-2) Band Neutrophils 0 % (0-8) Platelet Estimate Adequate Platelet Morphology Normal Hypochromasia 1+ Sodium Level 133 mEQ/L (135-145) L 133 mEQ/L (135-145) L Potassium Level 4.3 mEQ/L (3.4-4.9) 4.7 mEQ/L (3.4-4.9) Chloride Level 93 mEQ/L (98-107) L 93 mEQ/L (98-107) L Carbon Dioxide Level 26 mEQ/L (20-30) 24 mEQ/L (20-30) Anion Gap 14 (5-15) 16 (5-15) H Blood Urea Nitrogen 21 mg/dL (7-23) 21 mg/dL (7-23) Creatinine 1.7 mg/dL (0.5-0.9) #H 1.6 mg/dL (0.5-0.9) H Estimat Glomerular Filtration Rate 44.8 mL/min (>60) 48.0 mL/min (>60) Glucose Level 120 mg/dL (74-106) H 114 mg/dL (74-106) H Calcium Level 8.7 mg/dL (8.6-10.2) 8.7 mg/dL (8.6-10.2) Total Bilirubin 1.2 mg/dL (0.0-1.2) 1.1 mg/dL (0.0-1.2) Direct Bilirubin 0.5 mg/dL (0.1-0.3) H 0.4 mg/dL (0.1-0.3) H Aspartate Amino Transf (AST/SGOT) > 7000 U/L (5-40) H > 7000 U/L (5-40) H Alanine Aminotransferase (ALT/SGPT) > 7000 U/L (3-33) H > 7000 U/L (3-33) H Alkaline Phosphatase 126 U/L (35-104) H 118 U/L (35-104) H Total Protein 6.5 g/dL (6.6-8.7) L 5.9 g/dL (6.6-8.7) L Albumin 3.4 g/dL (3.5-5.2) L 3.4 g/dL (3.5-5.2) L Globulin 3.1 g/dL 2.5 g/dL Albumin/Globulin Ratio 1.0 (1.0-2.7) 1.3 (1.0-2.7) Ammonia 36 umol/L (11-51) Acetaminophen Level < 10 ug/mL (10-30) L Current Medications Medications (Trade) Dose Ordered Sig/Duncan Route PRN Reason Start Time Stop Time Status Last Admin Dose Admin Acetaminophen (Tylenol) 650 mg Q6H PRN ORAL Mild Pain/Temp > 100.5 11/24/16 17:00 12/24/16 16:59 11/25/16 20:30 Hydromorphone HCl (Dilaudid) 1 mg Q4H PRN IVP For severe Pain 11/24/16 17:00 12/01/16 16:59 11/26/16 19:28 Lorazepam 1 mg 1 mg Q4H PRN IV For Anxiety 11/25/16 10:30 12/02/16 10:29 11/26/16 17:33 Ondansetron HCl (Zofran) 4 mg Q4H PRN IVP Nausea & Vomiting 11/24/16 16:15 12/24/16 16:14 11/25/16 15:46 Piperacillin Sod/ Tazobactam Sod/ Dextrose (Zosyn/D5W) 110 ml @ 27.5 mls/hr EVERY 8 HOURS IV 11/26/16 12:00 12/03/16 11:59 11/26/16 12:00 Sodium Chloride (0.45% NS 1000ml) 1,000 ml @ 70 mls/hr [id number] IV 11/24/16 15:00 12/24/16 14:59 11/26/16 08:46 DONOVAN MILLAN Nov 26, 2016 21:43
[2016-11-27] VITALS: BP 110/69
[2016-11-27] MEDS: LORazepam Inj 2mg/ml 1ml IV PRN ×4 (03:53→18:02)
[2016-11-27] MEDS: Piperacillin/Tazobactam 3.375 GM in D5W 110 ML IV SCH (03:53)
[2016-11-27] MEDS: HYDROmorphone 1mg/ml Carpuject IVP PRN ×5 (03:54→20:47)
[2016-11-27 04:00] VITALS: BP 102/64
[2016-11-27 07:31] LABS: BASOPHILS % (AUTO) 0.9 % (0.0-2.0); EOSINOPHILS % (AUTO) 8.8 % (0.0-3.0); LYMPHOCYTES % (AUTO) 18.2 % (20.0-45.0); MEAN CORPUSCULAR HEMOGLOBIN 29.1 PG (27.0-31.0); MEAN CORPUSCULAR HGB CONC 30.8 G/DL (32.0-36.0); MEAN CORPUSCULAR VOLUME 95 FL (80-99); MEAN PLATELET VOLUME 6.3 FL (6.5-10.1); MONOCYTES % (AUTO) 10.4 % (1.0-10.0); NEUTROPHILS % (AUTO) 61.8 % (45.0-75.0); PLATELET COUNT 203 K/UL (150-450); RED BLOOD COUNT 3.83 M/UL (4.20-5.40); RED CELL DISTRIBUTION WIDTH 14.2 % (11.6-14.8); WHITE BLOOD COUNT 8.2 K/UL (4.8-10.8)
[2016-11-27 07:48] LABS: ALBUMIN/GLOBULIN RATIO 1.1 (1.0-2.7); CALCIUM 8.2 mg/dL (8.6-10.2); CREATININE 3.7 mg/dL (0.5-0.9); GLOMERULAR FILTRATION RATE 18.3 mL/min (>60); POTASSIUM 3.3 mEQ/L (3.4-4.9); TOTAL PROTEIN 5.2 g/dL (6.6-8.7)
--- NOTE | 2016-11-27 09:20 | General Progress Note ---
Assessment/Plan Assessment/Plan (1) Intractable Abdominal pain (2) Hepatitis (3) Pancreatitis The patient will be continued on Dilaudid and is followed by pool cleaner. The patient was discussedwith Dr. Robertson and Dr. Robertson concurred. Subjective Date patient seen: Nov 27, 2016 Time patient seen: 08:00 - am Allergies: Coded Allergies: No Known Allergies (Unverified , 11/24/16) Subjective REVIEW OF SYSTEMS: Denies rash, fever, chills, sweating, dizziness, drowsiness, blurred vision, sore throat, or change in weight. No shortness of breath or chest pain. No nausea, vomiting, or blood in the stool or urine. No bowel or bladder incontinence. No dysuria. She is complaining of abdominal pain. SUBJECTIVE: Her pain is unchanged and is severe at times reduced on the Dilaudid. GI continues to follow pt. Objective Last 24 Hour Vital Signs Date Time Temp Pulse Resp B/P Pulse Ox O2 Delivery O2 Flow Rate FiO2 11/27/16 04:24 96.3 11/27/16 04:00 97.4 72 18 102/64 96 Room Air 11/27/16 00:00 96.3 60 20 110/69 94 Room Air 11/26/16 20:00 97.7 76 20 98/66 97 Room Air 11/26/16 17:27 Nasal Cannula 2.0 11/26/16 15:41 97.2 70 16 93/59 98 Room Air 11/26/16 12:00 97.0 67 18 118/76 99 Intake and Output 11/26/16 11/27/16 19:00 07:00 Intake Total 1290.0 ml 1142.5 ml Balance 1290.0 ml 1142.5 ml Intake Oral 480 ml 600 ml IV Total 810.0 ml 542.5 ml # Voids 2 5 Laboratory Tests 11/26/16 11:00: Sodium Level 133L, Potassium Level 4.7, Chloride Level 93L, Carbon Dioxide Level 24, Anion Gap 16H, Blood Urea Nitrogen 21, Creatinine 1.6H, Estimat Glomerular Filtration Rate 48.0, Glucose Level 114H, Calcium Level 8.7, Total Bilirubin 1.1, Direct Bilirubin 0.4H, Aspartate Amino Transf (AST/SGOT) > 7000H , Alanine Aminotransferase (ALT/SGPT) > 7000H, Alkaline Phosphatase 118H, Ammonia 36, Total Protein 5.9L, Albumin 3.4L, Globulin 2.5, Albumin/Globulin Ratio 1.3, Acetaminophen Level < 10L 11/27/16 05:40: Sodium Level 134L, Potassium Level 3.3L, Chloride Level 94L, Carbon Dioxide Level 25, Anion Gap 15, Blood Urea Nitrogen 36H, Creatinine 3.7#H, Estimat Glomerular Filtration Rate 18.3, Glucose Level 81, Calcium Level 8.2L, Total Bilirubin 0.9, Aspartate Amino Transf (AST/SGOT) 1672H, Alanine Aminotransferase (ALT/SGPT) 1578H, Alkaline Phosphatase 87, Total Protein 5.2L, Albumin 2.8L, Globulin 2.4, Albumin/Globulin Ratio 1.1, White Blood Count 8.2, Red Blood Count 3.83L, Hemoglobin 11.2L, Hematocrit 36.2L, Mean Corpuscular Volume 95, Mean Corpuscular Hemoglobin 29.1, Mean Corpuscular Hemoglobin Concent 30.8L, Red Cell Distribution Width 14.2, Platelet Count 203, Mean Platelet Volume 6.3L, Neutrophils (%) (Auto) 61.8, Lymphocytes (%) (Auto) 18.2L , Monocytes (%) (Auto) 10.4H, Eosinophils (%) (Auto) 8.8H, Basophils (%) (Auto) 0.9, Uric Acid [Pending], Phosphorus Level [Pending], Magnesium Level [Pending] , Gamma Glutamyl Transpeptidase [Pending], Total Creatine Kinase [Pending], C- Reactive Protein, Quantitative [Pending], Triglycerides Level [Pending], Cholesterol Level [Pending], LDL Cholesterol [Pending], HDL Cholesterol [Pending ], Cholesterol/HDL Ratio [Pending], Monoscreen [Pending] Height (Feet): 5 Height (Inches): 4.00 Weight (Pounds): 105 Objective GENERAL: Alert, awake, and oriented. HEENT: PERRLA. NECK: Range of motion is full in all directions. No tenderness. No adenopathy. LUNGS: Decreased breath sounds bilaterally. HEART: S1 and S2, regular. ABDOMEN: Tenderness to palpation. EXTREMITIES: No cyanosis. No clubbing. No edema. NEUROLOGIC: No changes. TYRON MENJIVAR N. P.Johana. Nov 27, 2016 09:20
[2016-11-27 09:41] LABS: CHOLESTEROL 78 mg/dL (< 200); CHOLESTEROL/HDL RATIO 4.6 (3.3-4.4); CRP QUANT 3.3 mg/dL (< 0.5); HEMOLYSIS 3; LDL CHOLESTEROL (CALC.) 44 mg/dL (60-99); MAGNESIUM 1.8 mg/dL (1.7-2.5); PHOSPHORUS 3.6 mg/dL (2.5-4.8)
[2016-11-27] MEDS ORDERED: Piperacillin/Tazobactam 2.25 GM in D5W 55 ML IV SCH (10:00)
--- NOTE | 2016-11-27 10:59 | General Progress Note ---
Assessment/Plan Problem List: (1) Pancreatitis ICD Codes: K85.90 - Acute pancreatitis without necrosis or infection, unspecified SNOMED: 61870780 (2) Hepatitis ICD Codes: K75.9 - Inflammatory liver disease, unspecified SNOMED: 373572228 (3) Intractable vomiting ICD Codes: R11.10 - Vomiting, unspecified SNOMED: 349750539, 169524040 Status: progressing Assessment/Plan no vomit decrease in abdominal pain clinically improving Subjective ROS Limited/Unobtainable: Yes Constitutional: Reports: no symptoms Cardiovascular: Reports: no symptoms Respiratory: Reports: no symptoms Allergies: Coded Allergies: No Known Allergies (Unverified , 11/24/16) Objective Last 24 Hour Vital Signs Date Time Temp Pulse Resp B/P Pulse Ox O2 Delivery O2 Flow Rate FiO2 11/27/16 06:59 Nasal Cannula 2.0 11/27/16 04:24 96.3 11/27/16 04:00 97.4 72 18 102/64 96 Room Air 11/27/16 00:00 96.3 60 20 110/69 94 Room Air 11/26/16 20:00 97.7 76 20 98/66 97 Room Air 11/26/16 17:27 Nasal Cannula 2.0 28 11/26/16 15:41 97.2 70 16 93/59 98 Room Air 11/26/16 12:00 97.0 67 18 118/76 99 Intake and Output 11/26/16 11/27/16 19:00 07:00 Intake Total 1290.0 ml 1142.5 ml Balance 1290.0 ml 1142.5 ml Intake Oral 480 ml 600 ml IV Total 810.0 ml 542.5 ml # Voids 2 5 Laboratory Tests 11/26/16 11:00: Sodium Level 133L, Potassium Level 4.7, Chloride Level 93L, Carbon Dioxide Level 24, Anion Gap 16H, Blood Urea Nitrogen 21, Creatinine 1.6H, Estimat Glomerular Filtration Rate 48.0, Glucose Level 114H, Calcium Level 8.7, Total Bilirubin 1.1, Direct Bilirubin 0.4H, Aspartate Amino Transf (AST/SGOT) > 7000H , Alanine Aminotransferase (ALT/SGPT) > 7000H, Alkaline Phosphatase 118H, Ammonia 36, Total Protein 5.9L, Albumin 3.4L, Globulin 2.5, Albumin/Globulin Ratio 1.3, Acetaminophen Level < 10L 11/27/16 05:40: Sodium Level 134L, Potassium Level 3.3L, Chloride Level 94L, Carbon Dioxide Level 25, Anion Gap 15, Blood Urea Nitrogen 36H, Creatinine 3.7#H, Estimat Glomerular Filtration Rate 18.3, Glucose Level 81, Calcium Level 8.2L, Total Bilirubin 0.9, Aspartate Amino Transf (AST/SGOT) 1672H, Alanine Aminotransferase (ALT/SGPT) 1578H, Alkaline Phosphatase 87, Total Protein 5.2L, Albumin 2.8L, Globulin 2.4, Albumin/Globulin Ratio 1.1, White Blood Count 8.2, Red Blood Count 3.83L, Hemoglobin 11.2L, Hematocrit 36.2L, Mean Corpuscular Volume 95, Mean Corpuscular Hemoglobin 29.1, Mean Corpuscular Hemoglobin Concent 30.8L, Red Cell Distribution Width 14.2, Platelet Count 203, Mean Platelet Volume 6.3L, Neutrophils (%) (Auto) 61.8, Lymphocytes (%) (Auto) 18.2L , Monocytes (%) (Auto) 10.4H, Eosinophils (%) (Auto) 8.8H, Basophils (%) (Auto) 0.9, Uric Acid 7.0, Phosphorus Level 3.6, Magnesium Level 1.8, Gamma Glutamyl Transpeptidase 52H, Total Creatine Kinase 30, C-Reactive Protein, Quantitative 3.3H, Triglycerides Level 87, Cholesterol Level 78, LDL Cholesterol 44L, HDL Cholesterol 17, Cholesterol/HDL Ratio 4.6H, Monoscreen [Pending] Height (Feet): 5 Height (Inches): 4.00 Weight (Pounds): 105 EENT: PERRL/EOMI Cardiovascular: normal rate Respiratory/Chest: lungs clear Abdomen: soft Carlos A Dallas MD Nov 27, 2016 10:59
[2016-11-27] MEDS: Piperacillin/Tazobactam 2.25 GM in D5W 55 ML IV SCH ×2 (11:07→20:47)
--- NOTE | 2016-11-27 12:22 | GI Progress Note ---
Assessment/Plan Problems: (1) Shock liver ICD Codes: K72.00 - Acute and subacute hepatic failure without coma SNOMED: 004622934 (2) Hepatic lesion ICD Codes: K76.9 - Liver disease, unspecified SNOMED: 766860127 (3) Intractable vomiting ICD Codes: R11.10 - Vomiting, unspecified SNOMED: 374460038, 702917584 (4) Severe malnutrition ICD Codes: E43 - Unspecified severe protein-calorie malnutrition SNOMED: 50941381 (5) Pancreatitis ICD Codes: K85.90 - Acute pancreatitis without necrosis or infection, unspecified SNOMED: 92994508 (6) Hepatitis ICD Codes: K75.9 - Inflammatory liver disease, unspecified SNOMED: 389613148 (7) SIRS (systemic inflammatory response syndrome) ICD Codes: R65.10 - Systemic inflammatory response syndrome (SIRS) of non- infectious origin without acute organ dysfunction SNOMED: 476293509 Status: unchanged Status Narrative Discussed with Dr. Stein. Assessment/Plan shock liver 2/2 unknown etiology >> AST/ALT downtrending utox positive for benzodiazepines >> pt had received Ativan lipase negative abd US reviewed. APCT reviewed. fu abdominal MRI liver protocol to evaluate hepatic cyst/lesion >> pt has refused twice hep panel >> negative abx zofran prn cont ppi regular diet repeat LFTs fu labs Subjective Subjective abdominal pain Objective Last 24 Hour Vital Signs Date Time Temp Pulse Resp B/P Pulse Ox O2 Delivery O2 Flow Rate FiO2 11/27/16 06:59 Nasal Cannula 2.0 11/27/16 04:24 96.3 11/27/16 04:00 97.4 72 18 102/64 96 Room Air 11/27/16 00:00 96.3 60 20 110/69 94 Room Air 11/26/16 20:00 97.7 76 20 98/66 97 Room Air 11/26/16 17:27 Nasal Cannula 2.0 28 11/26/16 15:41 97.2 70 16 93/59 98 Room Air Intake and Output 11/26/16 11/27/16 19:00 07:00 Intake Total 1290.0 ml 1142.5 ml Balance 1290.0 ml 1142.5 ml Intake Oral 480 ml 600 ml IV Total 810.0 ml 542.5 ml # Voids 2 5 Laboratory Tests Test 11/27/16 05:40 White Blood Count 8.2 K/UL (4.8-10.8) Red Blood Count 3.83 M/UL (4.20-5.40) L Hemoglobin 11.2 G/DL (12.0-16.0) L Hematocrit 36.2 % (37.0-47.0) L Mean Corpuscular Volume 95 FL (80-99) Mean Corpuscular Hemoglobin 29.1 PG (27.0-31.0) Mean Corpuscular Hemoglobin Concent 30.8 G/DL (32.0-36.0) L Red Cell Distribution Width 14.2 % (11.6-14.8) Platelet Count 203 K/UL (150-450) Mean Platelet Volume 6.3 FL (6.5-10.1) L Neutrophils (%) (Auto) 61.8 % (45.0-75.0) Lymphocytes (%) (Auto) 18.2 % (20.0-45.0) L Monocytes (%) (Auto) 10.4 % (1.0-10.0) H Eosinophils (%) (Auto) 8.8 % (0.0-3.0) H Basophils (%) (Auto) 0.9 % (0.0-2.0) Sodium Level 134 mEQ/L (135-145) L Potassium Level 3.3 mEQ/L (3.4-4.9) L Chloride Level 94 mEQ/L (98-107) L Carbon Dioxide Level 25 mEQ/L (20-30) Anion Gap 15 (5-15) Blood Urea Nitrogen 36 mg/dL (7-23) H Creatinine 3.7 mg/dL (0.5-0.9) #H Estimat Glomerular Filtration Rate 18.3 mL/min (>60) Glucose Level 81 mg/dL (74-106) Uric Acid 7.0 mg/dL (3.0-7.5) Calcium Level 8.2 mg/dL (8.6-10.2) L Phosphorus Level 3.6 mg/dL (2.5-4.8) Magnesium Level 1.8 mg/dL (1.7-2.5) Total Bilirubin 0.9 mg/dL (0.0-1.2) Gamma Glutamyl Transpeptidase 52 U/L (5-36) H Aspartate Amino Transf (AST/SGOT) 1672 U/L (5-40) H Alanine Aminotransferase (ALT/SGPT) 1578 U/L (3-33) H Alkaline Phosphatase 87 U/L (35-104) Total Creatine Kinase 30 U/L (26-140) C-Reactive Protein, Quantitative 3.3 mg/dL (< 0.5) H Total Protein 5.2 g/dL (6.6-8.7) L Albumin 2.8 g/dL (3.5-5.2) L Globulin 2.4 g/dL Albumin/Globulin Ratio 1.1 (1.0-2.7) Triglycerides Level 87 mg/dL (< 150) Cholesterol Level 78 mg/dL (< 200) LDL Cholesterol 44 mg/dL (60-99) L HDL Cholesterol 17 mg/dL (> 60) Cholesterol/HDL Ratio 4.6 (3.3-4.4) H Monoscreen Pending Height (Feet): 5 Height (Inches): 4.00 Weight (Pounds): 105 General Appearance: no apparent distress, alert, thin Cardiovascular: normal rate Respiratory/Chest: normal breath sounds, no respiratory distress Abdominal Exam: tender Arianne Caballero N.P. Nov 27, 2016 12:22
[2016-11-27 12:57] VITALS: BP 101/58
--- NOTE | 2016-11-27 14:48 | Consultation ---
Consult Note Consult Note asked to eval for rising Cr This patient states that she had been admitted to [facility] for several days and was discharged yesterday. She states that she has pancreatitis. She states that she does not know why she has pancreatitis. She denies alcohol or drug use. She does not take any medications. She states that since 2 AM this morning she has had nausea, vomiting and epigastric pain. She states that she did have pancreatitis in the past but this is more than 3 years ago. She does not know why she is had a recurrence. She denies dysuria hematuria. She has no other complaints. Past Medical History: see triage record, asthma, other - pancreatitis Hx Asthma: Yes Hx Gastrointestinal Problems: Yes - Pancreatitis patient interviewed examined data reviewed Assessment/Plan Acute renal failure, due to underlying liver disease Others: (1) Shock liver (2) Hepatic lesion (3) Intractable vomiting (4) Severe malnutrition (5) Pancreatitis (6) Hepatitis (7) SIRS (systemic inflammatory response syndrome) Plan: Carroll- JESSE kidney IV fluid Urine studies Monitor renal parameters Avoid Nephrotoxics per orders ANTONIO ARVIZU Nov 27, 2016 14:48
[2016-11-27] MEDS ORDERED: D5NS 1,000 ML IV SCH (15:00)
--- NOTE | 2016-11-27 15:21 | Infectious Diseases Prog Note ---
Assessment/Plan Problems: (1) Pancreatitis Assessment & Plan: continue supportive care and hydration (2) Hepatitis Assessment & Plan: suspect liver shock, with negative hepatitis panel, avoid hepatotoxic meds, monitor LFT (3) SIRS (systemic inflammatory response syndrome) Assessment & Plan: improved, no culture with normal WBC, will D/C zosyn (4) Intractable vomiting Assessment & Plan: suspect due to the above, continue supportive care, and nausea meds, GI is following (5) Hepatic lesion Assessment & Plan: recommend follow up images with GI in the future.and monitor tumor markers Subjective Constitutional: Reports: no symptoms HEENT: Reports: no symptoms Respiratory: Reports: no symptoms Cardiovascular: Reports: no symptoms Gastrointestinal/Abdominal: Reports: bloating, constipation, nausea Genitourinary: Reports: no symptoms Neurologic: Reports: no symptoms Psychiatric: Reports: no symptoms Skin: Reports: no symptoms Allergies: Coded Allergies: No Known Allergies (Unverified , 11/24/16) Objective Vital Signs Last 24 Hour Vital Signs Date Time Temp Pulse Resp B/P Pulse Ox O2 Delivery O2 Flow Rate FiO2 11/27/16 12:57 98.2 75 20 101/58 95 Room Air 11/27/16 06:59 Nasal Cannula 2.0 11/27/16 04:24 96.3 11/27/16 04:00 97.4 72 18 102/64 96 Room Air 11/27/16 00:00 96.3 60 20 110/69 94 Room Air 11/26/16 20:00 97.7 76 20 98/66 97 Room Air 11/26/16 17:27 Nasal Cannula 2.0 28 11/26/16 15:41 97.2 70 16 93/59 98 Room Air Height (Feet): 5 Height (Inches): 4.00 Weight (Pounds): 105 General Appearance: WD/WN, no acute distress HEENT: normocephalic, atraumatic, anicteric, mucous membranes moist Respiratory/Chest: chest wall non-tender, lungs clear, normal breath sounds, no respiratory distress, no accessory muscle use Cardiovascular: normal peripheral pulses, normal rate, regular rhythm, no gallop/murmur, no JVD Abdomen: normal bowel sounds, soft, non tender, no organomegaly, non distended Extremities: no cyanosis, no clubbing Skin: no rash, no lesions Laboratory Tests Test 11/27/16 05:40 White Blood Count 8.2 K/UL (4.8-10.8) Red Blood Count 3.83 M/UL (4.20-5.40) L Hemoglobin 11.2 G/DL (12.0-16.0) L Hematocrit 36.2 % (37.0-47.0) L Mean Corpuscular Volume 95 FL (80-99) Mean Corpuscular Hemoglobin 29.1 PG (27.0-31.0) Mean Corpuscular Hemoglobin Concent 30.8 G/DL (32.0-36.0) L Red Cell Distribution Width 14.2 % (11.6-14.8) Platelet Count 203 K/UL (150-450) Mean Platelet Volume 6.3 FL (6.5-10.1) L Neutrophils (%) (Auto) 61.8 % (45.0-75.0) Lymphocytes (%) (Auto) 18.2 % (20.0-45.0) L Monocytes (%) (Auto) 10.4 % (1.0-10.0) H Eosinophils (%) (Auto) 8.8 % (0.0-3.0) H Basophils (%) (Auto) 0.9 % (0.0-2.0) Sodium Level 134 mEQ/L (135-145) L Potassium Level 3.3 mEQ/L (3.4-4.9) L Chloride Level 94 mEQ/L (98-107) L Carbon Dioxide Level 25 mEQ/L (20-30) Anion Gap 15 (5-15) Blood Urea Nitrogen 36 mg/dL (7-23) H Creatinine 3.7 mg/dL (0.5-0.9) #H Estimat Glomerular Filtration Rate 18.3 mL/min (>60) Glucose Level 81 mg/dL (74-106) Uric Acid 7.0 mg/dL (3.0-7.5) Calcium Level 8.2 mg/dL (8.6-10.2) L Phosphorus Level 3.6 mg/dL (2.5-4.8) Magnesium Level 1.8 mg/dL (1.7-2.5) Total Bilirubin 0.9 mg/dL (0.0-1.2) Gamma Glutamyl Transpeptidase 52 U/L (5-36) H Aspartate Amino Transf (AST/SGOT) 1672 U/L (5-40) H Alanine Aminotransferase (ALT/SGPT) 1578 U/L (3-33) H Alkaline Phosphatase 87 U/L (35-104) Total Creatine Kinase 30 U/L (26-140) C-Reactive Protein, Quantitative 3.3 mg/dL (< 0.5) H Total Protein 5.2 g/dL (6.6-8.7) L Albumin 2.8 g/dL (3.5-5.2) L Globulin 2.4 g/dL Albumin/Globulin Ratio 1.1 (1.0-2.7) Triglycerides Level 87 mg/dL (< 150) Cholesterol Level 78 mg/dL (< 200) LDL Cholesterol 44 mg/dL (60-99) L HDL Cholesterol 17 mg/dL (> 60) Cholesterol/HDL Ratio 4.6 (3.3-4.4) H Monoscreen Pending Current Medications Medications (Trade) Dose Ordered Sig/Duncan Route PRN Reason Start Time Stop Time Status Last Admin Dose Admin Acetaminophen (Tylenol) 650 mg Q6H PRN ORAL Mild Pain/Temp > 100.5 11/24/16 17:00 12/24/16 16:59 11/25/16 20:30 Dextrose/Sodium Chloride (D5ns) 1,000 ml @ 100 mls/hr Q10H IV 11/27/16 15:30 12/27/16 15:29 Hydromorphone HCl (Dilaudid) 1 mg Q4H PRN IVP For severe Pain 11/24/16 17:00 12/01/16 16:59 11/27/16 12:26 Lorazepam 1 mg 1 mg Q4H PRN IV For Anxiety 11/25/16 10:30 12/02/16 10:29 11/27/16 12:57 Ondansetron HCl (Zofran) 4 mg Q4H PRN IVP Nausea & Vomiting 11/24/16 16:15 12/24/16 16:14 11/25/16 15:46 Piperacillin Sod/ Tazobactam Sod 2.25 gm/Dextrose 55 ml @ 110 mls/hr EVERY 12 HOURS IV 11/27/16 10:00 12/04/16 09:59 11/27/16 11:07 Jesus Mccabe M.D. Nov 27, 2016 15:21
[2016-11-27] MEDS ORDERED: 1/2 NS 1000ml IV ONE (15:24)
[2016-11-27] MEDS ORDERED: Tubing IV Secondary IV ONE (15:24)
[2016-11-27 15:45] VITALS: BP 106/71
--- NOTE | 2016-11-27 15:48 | Diagnostic Imaging Report ---
Indication:Elevated Bun and Creatinine. Technique: Grayscale and duplex Doppler imaging of the kidneys performed. Comparison: None Findings: Kidneys are echogenic equal to the liver. The right kidney measures 14.7 cm. The left kidney measures 14.3 cm. There is no hydronephrosis. The bladder appears moderately distended. IVC is unremarkable. There is trace ascites present. Impression: Echogenic kidneys. Suspicion of medical renal disease. Distended bladder
[2016-11-27] MEDS: D5NS 1,000 ML IV SCH (16:07)
[2016-11-27 20:00] VITALS: BP 91/52
[2016-11-27 20:30] VITALS: BP 110/76
[2016-11-28] VITALS: BP 100/67
[2016-11-28] MEDS: D5NS 1,000 ML IV SCH ×3 (01:30→22:02)
[2016-11-28] MEDS: HYDROmorphone 1mg/ml Carpuject IVP PRN ×5 (01:39→21:58)
[2016-11-28 04:00] VITALS: BP 96/60
[2016-11-28] MEDS: LORazepam Inj 2mg/ml 1ml IV PRN ×5 (04:29→22:40)
--- NOTE | 2016-11-28 07:11 | General Progress Note ---
Assessment/Plan Problem List: (1) Pancreatitis ICD Codes: K85.90 - Acute pancreatitis without necrosis or infection, unspecified SNOMED: 79552676 (2) Hepatitis ICD Codes: K75.9 - Inflammatory liver disease, unspecified SNOMED: 122879061 (3) Intractable vomiting ICD Codes: R11.10 - Vomiting, unspecified SNOMED: 238702048, 821038888 Status: progressing Assessment/Plan afebrile vomiting improved abdominal pain improving h/o pancreatitis vitals stable Subjective ROS Limited/Unobtainable: Yes Constitutional: Reports: no symptoms Allergies: Coded Allergies: No Known Allergies (Unverified , 11/24/16) Objective Last 24 Hour Vital Signs Date Time Temp Pulse Resp B/P Pulse Ox O2 Delivery O2 Flow Rate FiO2 11/28/16 04:00 97.5 66 20 96/60 93 Room Air 11/28/16 00:00 97.9 72 20 100/67 100 Room Air 11/27/16 20:30 110/76 98 Room Air 11/27/16 20:00 97.3 76 18 91/52 96 Room Air 11/27/16 19:15 Room Air 11/27/16 15:45 98.6 81 20 106/71 96 Room Air 11/27/16 12:57 98.2 75 20 101/58 95 Room Air Intake and Output 11/27/16 11/28/16 19:00 07:00 Intake Total 1122.5 ml 740 ml Balance 1122.5 ml 740 ml Intake Oral 700 ml IV Total 422.5 ml 740 ml # Voids 2 2 Laboratory Tests 11/28/16 04:30: Urine Eosinophils [Pending], Urine Random Sodium [Pending] Height (Feet): 5 Height (Inches): 4.00 Weight (Pounds): 105 EENT: PERRL/EOMI Neck: supple Cardiovascular: normal rate Respiratory/Chest: lungs clear Abdomen: soft Carlos A Dallas MD Nov 28, 2016 07:11
[2016-11-28 07:44] LABS: BASOPHILS % (AUTO) 1.1 % (0.0-2.0); EOSINOPHILS % (AUTO) 10.2 % (0.0-3.0); MEAN CORPUSCULAR HEMOGLOBIN 29.5 PG (27.0-31.0); MEAN CORPUSCULAR HGB CONC 31.2 G/DL (32.0-36.0); MEAN CORPUSCULAR VOLUME 95 FL (80-99); MEAN PLATELET VOLUME 6.9 FL (6.5-10.1); MONOCYTES % (AUTO) 12.9 % (1.0-10.0); NEUTROPHILS % (AUTO) 50.8 % (45.0-75.0); PLATELET COUNT 235 K/UL (150-450); RED BLOOD COUNT 3.69 M/UL (4.20-5.40); RED CELL DISTRIBUTION WIDTH 14.7 % (11.6-14.8); WHITE BLOOD COUNT 7.6 K/UL (4.8-10.8)
[2016-11-28 07:59] LABS: CRP QUANT 1.7 mg/dL (< 0.5); PHOSPHORUS 4.9 mg/dL (2.5-4.8)
[2016-11-28 08:03] LABS: ALBUMIN/GLOBULIN RATIO 1.1 (1.0-2.7); CALCIUM 8.4 mg/dL (8.6-10.2); GLOMERULAR FILTRATION RATE 12.8 mL/min (>60); POTASSIUM 3.6 mEQ/L (3.4-4.9); TOTAL PROTEIN 5.2 g/dL (6.6-8.7)
[2016-11-28 08:22] LABS: URIC ACID 7.2 mg/dL (3.0-7.5)
[2016-11-28] MEDS: Piperacillin/Tazobactam 2.25 GM in D5W 55 ML IV SCH (08:36)
--- NOTE | 2016-11-28 10:08 | General Progress Note ---
Assessment/Plan Status: deteriorating Status Narrative Cr rising Assessment/Plan Acute renal failure (1) Shock liver (2) Hepatic lesion (3) Intractable vomiting- resolved (4) Severe malnutrition (5) Pancreatitis (6) Hepatitis (7) SIRS (systemic inflammatory response syndrome) Plan: Carroll could not be placed- patient voiding well. JESSE kidney , no hydro IV fluid Urine studies Monitor renal parameters Avoid Nephrotoxics per orders discussed the need of dialysis catheter and dialysis at presence of RN Mirella, patient indecisive- aware of risks Subjective ROS Limited/Unobtainable: No Constitutional: Reports: malaise, weakness Allergies: Coded Allergies: No Known Allergies (Unverified , 11/24/16) Objective Last 24 Hour Vital Signs Date Time Temp Pulse Resp B/P Pulse Ox O2 Delivery O2 Flow Rate FiO2 11/28/16 09:06 97.5 11/28/16 04:00 97.5 66 20 96/60 93 Room Air 11/28/16 00:00 97.9 72 20 100/67 100 Room Air 11/27/16 20:30 110/76 98 Room Air 11/27/16 20:00 97.3 76 18 91/52 96 Room Air 11/27/16 19:15 Room Air 11/27/16 15:45 98.6 81 20 106/71 96 Room Air 11/27/16 12:57 98.2 75 20 101/58 95 Room Air Intake and Output 11/27/16 11/28/16 19:00 07:00 Intake Total 1122.5 ml 740 ml Balance 1122.5 ml 740 ml Intake Oral 700 ml IV Total 422.5 ml 740 ml # Voids 2 2 Laboratory Tests 11/28/16 04:30: Urine Eosinophils [Pending], Urine Random Sodium 34 11/28/16 05:35: White Blood Count 7.6, Red Blood Count 3.69L, Hemoglobin 10.9L, Hematocrit 34.9L , Mean Corpuscular Volume 95, Mean Corpuscular Hemoglobin 29.5, Mean Corpuscular Hemoglobin Concent 31.2L, Red Cell Distribution Width 14.7, Platelet Count 235, Mean Platelet Volume 6.9, Neutrophils (%) (Auto) 50.8, Lymphocytes (%) (Auto) 25.0, Monocytes (%) (Auto) 12.9H, Eosinophils (%) (Auto) 10.2H, Basophils (%) (Auto) 1.1, Sodium Level 135, Potassium Level 3.6, Chloride Level 96L, Carbon Dioxide Level 22, Anion Gap 17H, Blood Urea Nitrogen 44H, Creatinine 5.0H, Estimat Glomerular Filtration Rate 12.8, Glucose Level 84 , Uric Acid 7.2, Calcium Level 8.4L, Phosphorus Level 4.9H, Magnesium Level 2.0 , Total Bilirubin 0.8, Gamma Glutamyl Transpeptidase 50H, Aspartate Amino Transf (AST/SGOT) 433H, Alanine Aminotransferase (ALT/SGPT) 903H, Alkaline Phosphatase 74, C-Reactive Protein, Quantitative 1.7H, Pro-B-Type Natriuretic Peptide 52, Total Protein 5.2L, Albumin 2.8L, Globulin 2.4, Albumin/Globulin Ratio 1.1 Height (Feet): 5 Height (Inches): 4.00 Weight (Pounds): 105 General Appearance: no apparent distress Objective no signs of CHF ANTONIO ARVIZU Nov 28, 2016 10:08
[2016-11-28 11:33] LABS: INR 1.2 (0.9-1.1); PROTHROMBIN TIME 12.7 SEC (9.30-11.50)
[2016-11-28 12:12] VITALS: BP 100/64
--- NOTE | 2016-11-28 14:20 | Infectious Diseases Prog Note ---
Assessment/Plan Problems: (1) Pancreatitis Assessment & Plan: continue supportive care and hydration (2) Hepatitis Assessment & Plan: suspect liver shock, with negative hepatitis panel, avoid hepatotoxic meds, monitor LFT (3) SIRS (systemic inflammatory response syndrome) Assessment & Plan: improved, no culture with normal WBC, monitor off zosyn (4) Intractable vomiting Assessment & Plan: suspect due to the above, continue supportive care, and nausea meds, GI is following (5) Hepatic lesion Assessment & Plan: recommend follow up images with GI in the future.and monitor tumor markers (6) DICK (acute kidney injury) Assessment & Plan: not improving, continue hydration, avoid nephrotoxic meds, may need HD, renal is following Subjective ROS Limited/Unobtainable: Yes Allergies: Coded Allergies: No Known Allergies (Unverified , 11/24/16) Subjective she was sleeping , and response to verbal commands, afebrile, no nausea or vomiting Objective Vital Signs Last 24 Hour Vital Signs Date Time Temp Pulse Resp B/P Pulse Ox O2 Delivery O2 Flow Rate FiO2 11/28/16 14:00 98.4 11/28/16 12:12 98.4 67 20 100/64 98 Room Air 11/28/16 04:00 97.5 66 20 96/60 93 Room Air 11/28/16 00:00 97.9 72 20 100/67 100 Room Air 11/27/16 20:30 110/76 98 Room Air 11/27/16 20:00 97.3 76 18 91/52 96 Room Air 11/27/16 19:15 Room Air 11/27/16 15:45 98.6 81 20 106/71 96 Room Air Height (Feet): 5 Height (Inches): 4.00 Weight (Pounds): 105 General Appearance: WD/WN, no acute distress HEENT: normocephalic, atraumatic, anicteric, mucous membranes moist Respiratory/Chest: chest wall non-tender, lungs clear, normal breath sounds, no respiratory distress, no accessory muscle use Cardiovascular: normal peripheral pulses, normal rate, regular rhythm, no gallop/murmur, no JVD Abdomen: normal bowel sounds, soft, non tender, no organomegaly, non distended , no mass Extremities: no cyanosis, no clubbing Skin: no rash, no lesions Laboratory Tests Test 11/28/16 04:30 11/28/16 05:35 11/28/16 10:47 Urine Eosinophils None seen Urine Random Sodium 34 mmol/L White Blood Count 7.6 K/UL (4.8-10.8) Red Blood Count 3.69 M/UL (4.20-5.40) L Hemoglobin 10.9 G/DL (12.0-16.0) L Hematocrit 34.9 % (37.0-47.0) L Mean Corpuscular Volume 95 FL (80-99) Mean Corpuscular Hemoglobin 29.5 PG (27.0-31.0) Mean Corpuscular Hemoglobin Concent 31.2 G/DL (32.0-36.0) L Red Cell Distribution Width 14.7 % (11.6-14.8) Platelet Count 235 K/UL (150-450) Mean Platelet Volume 6.9 FL (6.5-10.1) Neutrophils (%) (Auto) 50.8 % (45.0-75.0) Lymphocytes (%) (Auto) 25.0 % (20.0-45.0) Monocytes (%) (Auto) 12.9 % (1.0-10.0) H Eosinophils (%) (Auto) 10.2 % (0.0-3.0) H Basophils (%) (Auto) 1.1 % (0.0-2.0) Sodium Level 135 mEQ/L (135-145) Potassium Level 3.6 mEQ/L (3.4-4.9) Chloride Level 96 mEQ/L (98-107) L Carbon Dioxide Level 22 mEQ/L (20-30) Anion Gap 17 (5-15) H Blood Urea Nitrogen 44 mg/dL (7-23) H Creatinine 5.0 mg/dL (0.5-0.9) H Estimat Glomerular Filtration Rate 12.8 mL/min (>60) Glucose Level 84 mg/dL (74-106) Uric Acid 7.2 mg/dL (3.0-7.5) Calcium Level 8.4 mg/dL (8.6-10.2) L Phosphorus Level 4.9 mg/dL (2.5-4.8) H Magnesium Level 2.0 mg/dL (1.7-2.5) Total Bilirubin 0.8 mg/dL (0.0-1.2) Gamma Glutamyl Transpeptidase 50 U/L (5-36) H Aspartate Amino Transf (AST/SGOT) 433 U/L (5-40) H Alanine Aminotransferase (ALT/SGPT) 903 U/L (3-33) H Alkaline Phosphatase 74 U/L (35-104) C-Reactive Protein, Quantitative 1.7 mg/dL (< 0.5) H Pro-B-Type Natriuretic Peptide 52 pg/mL (0-125) Total Protein 5.2 g/dL (6.6-8.7) L Albumin 2.8 g/dL (3.5-5.2) L Globulin 2.4 g/dL Albumin/Globulin Ratio 1.1 (1.0-2.7) Prothrombin Time 12.7 SEC (9.30-11.50) H Prothromb Time International Ratio 1.2 (0.9-1.1) H Activated Partial Thromboplast Time 32 SEC (23-33) Current Medications Medications (Trade) Dose Ordered Sig/Duncan Route PRN Reason Start Time Stop Time Status Last Admin Dose Admin Acetaminophen (Tylenol) 650 mg Q6H PRN ORAL Mild Pain/Temp > 100.5 11/24/16 17:00 12/24/16 16:59 11/25/16 20:30 Dextrose/Sodium Chloride (D5ns) 1,000 ml @ 100 mls/hr Q10H IV 11/27/16 15:30 12/27/16 15:29 11/27/16 16:07 Heparin Sodium/ Sodium Chloride (Heparin 2000 units/Ns 1000ml premix) 2,000 unit ONCE ONCE INJ 11/28/16 15:00 11/28/16 15:01 Hydromorphone HCl (Dilaudid) 1 mg Q4H PRN IVP For severe Pain 11/24/16 17:00 12/01/16 16:59 11/28/16 13:30 Lidocaine HCl (Xylocaine 1% 30ml) 30 ml ONCE ONCE INJ 11/28/16 15:00 11/28/16 15:01 Lorazepam 1 mg 1 mg Q4H PRN IV For Anxiety 11/25/16 10:30 12/02/16 10:29 11/28/16 13:38 Ondansetron HCl (Zofran) 4 mg Q4H PRN IVP Nausea & Vomiting 11/24/16 16:15 12/24/16 16:14 11/25/16 15:46 Pantoprazole (Protonix) 40 mg DAILY ORAL 11/28/16 11:00 12/28/16 10:59 11/28/16 12:00 Sodium Bicarbonate (Sodium Bicarbonate) 50 ml ONCE ONCE IV 11/28/16 15:00 11/28/16 15:01 Jesus Mccabe M.D. Nov 28, 2016 14:20
[2016-11-28] MEDS ORDERED: D5NS 1000ml IV ONE (14:35)
[2016-11-28] MEDS ORDERED: Tubing IV Secondary IV ONE (14:35)
[2016-11-28] MEDS ORDERED: Lidocaine 1% Plain 30 ml INJ ONE (15:00)
[2016-11-28] MEDS ORDERED: Sodium Bicarbonate 8.4% 50ml Inj IV ONE (15:00)
[2016-11-28] MEDS ORDERED: Heparin 2000 units/Ns 1000ml INJ ONE (15:00)
--- NOTE | 2016-11-28 16:42 | Consultation ---
Consult Note Consult Note Pt to be started on HD per nephrology and urgent catheter access was requested. PMH/ROS/Hosp. course noted. Exam -- NAD; AVSS; cor RRR; lungs CTA; abd soft; extr. no C/C/E Labs reviewed. Assessment/Plan Pt with rising creat., to be started on HD per nephrology and urgent catheter access needed. Will place a femoral Mahurkar catheter as temporary access. If it appears that pt will require HD beyond a few day, recommend long-term access -- options will be discussed if and when necessary. Pt understands risks and benefits and wishes to proceed with the procedure. CRISTOPHER BRADFORD Nov 28, 2016 16:42
[2016-11-28 20:00] VITALS: BP 131/67
--- NOTE | 2016-11-28 20:17 | General Progress Note ---
Assessment/Plan Assessment/Plan Assessment/Plan Problems: (1) Shock liver ICD Codes: K72.00 - Acute and subacute hepatic failure without coma SNOMED: 891829073 (2) Hepatic lesion ICD Codes: K76.9 - Liver disease, unspecified SNOMED: 849511113 (3) Intractable vomiting ICD Codes: R11.10 - Vomiting, unspecified SNOMED: 669432233, 238224560 (4) Severe malnutrition ICD Codes: E43 - Unspecified severe protein-calorie malnutrition SNOMED: 01060533 (5) Pancreatitis ICD Codes: K85.90 - Acute pancreatitis without necrosis or infection, unspecified SNOMED: 95034236 (6) Hepatitis ICD Codes: K75.9 - Inflammatory liver disease, unspecified SNOMED: 079146503 (7) SIRS (systemic inflammatory response syndrome) ICD Codes: R65.10 - Systemic inflammatory response syndrome (SIRS) of non- infectious origin without acute organ dysfunction SNOMED: 116280481 Status: unchanged Assessment/Plan shock liver 2/2 unknown etiology >> AST/ALT downtrending utox positive for benzodiazepines >> pt had received Ativan lipase negative abd US reviewed. APCT reviewed. fu abdominal MRI liver protocol to evaluate hepatic cyst/lesion >> pt has refused twice hep panel >> negative abx zofran prn cont ppi regular diet repeat LFTs fu labs Subjective Allergies: Coded Allergies: No Known Allergies (Unverified , 11/24/16) Subjective c/o mild epigastric pain some nausea Objective Last 24 Hour Vital Signs Date Time Temp Pulse Resp B/P Pulse Ox O2 Delivery O2 Flow Rate FiO2 11/28/16 20:00 98.4 81 18 131/67 Room Air 11/28/16 18:15 98.4 11/28/16 12:12 98.4 67 20 100/64 98 Room Air 11/28/16 04:00 97.5 66 20 96/60 93 Room Air 11/28/16 00:00 97.9 72 20 100/67 100 Room Air 11/27/16 20:30 110/76 98 Room Air Intake and Output 11/27/16 11/28/16 19:00 07:00 Intake Total 1122.5 ml 740 ml Balance 1122.5 ml 740 ml Intake Oral 700 ml IV Total 422.5 ml 740 ml # Voids 2 2 Laboratory Tests 11/28/16 04:30: Urine Eosinophils None seen, Urine Random Sodium 34 11/28/16 05:35: White Blood Count 7.6, Red Blood Count 3.69L, Hemoglobin 10.9L, Hematocrit 34.9L , Mean Corpuscular Volume 95, Mean Corpuscular Hemoglobin 29.5, Mean Corpuscular Hemoglobin Concent 31.2L, Red Cell Distribution Width 14.7, Platelet Count 235, Mean Platelet Volume 6.9, Neutrophils (%) (Auto) 50.8, Lymphocytes (%) (Auto) 25.0, Monocytes (%) (Auto) 12.9H, Eosinophils (%) (Auto) 10.2H, Basophils (%) (Auto) 1.1, Sodium Level 135, Potassium Level 3.6, Chloride Level 96L, Carbon Dioxide Level 22, Anion Gap 17H, Blood Urea Nitrogen 44H, Creatinine 5.0H, Estimat Glomerular Filtration Rate 12.8, Glucose Level 84 , Uric Acid 7.2, Calcium Level 8.4L, Phosphorus Level 4.9H, Magnesium Level 2.0 , Total Bilirubin 0.8, Gamma Glutamyl Transpeptidase 50H, Aspartate Amino Transf (AST/SGOT) 433H, Alanine Aminotransferase (ALT/SGPT) 903H, Alkaline Phosphatase 74, C-Reactive Protein, Quantitative 1.7H, Pro-B-Type Natriuretic Peptide 52, Total Protein 5.2L, Albumin 2.8L, Globulin 2.4, Albumin/Globulin Ratio 1.1 11/28/16 10:47: Prothrombin Time 12.7H, Prothromb Time International Ratio 1.2H, Activated Partial Thromboplast Time 32 Height (Feet): 5 Height (Inches): 4.00 Weight (Pounds): 105 Objective Thin AA woman NCAT supple CTA RRR soft ND NT no edema non focal PB BOSS Nov 28, 2016 20:16
[2016-11-29] MEDS: HYDROmorphone 1mg/ml Carpuject IVP PRN ×5 (04:10→21:32)
[2016-11-29] MEDS: LORazepam Inj 2mg/ml 1ml IV PRN ×5 (05:32→22:15)
[2016-11-29] MEDS: D5NS 1,000 ML IV SCH ×2 (07:11→17:39)
[2016-11-29 08:00] VITALS: BP 113/70
[2016-11-29 08:09] LABS: BASOPHILS % (AUTO) 0.7 % (0.0-2.0); EOSINOPHILS % (AUTO) 7.9 % (0.0-3.0); LYMPHOCYTES % (AUTO) 28.7 % (20.0-45.0); MEAN CORPUSCULAR HEMOGLOBIN 29.7 PG (27.0-31.0); MEAN CORPUSCULAR HGB CONC 31.1 G/DL (32.0-36.0); MEAN CORPUSCULAR VOLUME 96 FL (80-99); MEAN PLATELET VOLUME 6.3 FL (6.5-10.1); MONOCYTES % (AUTO) 10.2 % (1.0-10.0); NEUTROPHILS % (AUTO) 52.5 % (45.0-75.0); PLATELET COUNT 219 K/UL (150-450); RED BLOOD COUNT 3.54 M/UL (4.20-5.40); RED CELL DISTRIBUTION WIDTH 14.6 % (11.6-14.8); WHITE BLOOD COUNT 7.7 K/UL (4.8-10.8)
[2016-11-29 08:10] LABS: ALBUMIN/GLOBULIN RATIO 1.2 (1.0-2.7); CALCIUM 8.3 mg/dL (8.6-10.2); CREATININE 5.9 mg/dL (0.5-0.9); CRP QUANT 1.1 mg/dL (< 0.5); GLOMERULAR FILTRATION RATE 10.7 mL/min (>60); MAGNESIUM 2.1 mg/dL (1.7-2.5); PHOSPHORUS 4.9 mg/dL (2.5-4.8); POTASSIUM 3.5 mEQ/L (3.4-4.9); TOTAL PROTEIN 5.4 g/dL (6.6-8.7); URIC ACID 7.6 mg/dL (3.0-7.5)
--- NOTE | 2016-11-29 08:25 | General Progress Note ---
Assessment/Plan Problem List: (1) Pancreatitis ICD Codes: K85.90 - Acute pancreatitis without necrosis or infection, unspecified SNOMED: 86819738 (2) Hepatitis ICD Codes: K75.9 - Inflammatory liver disease, unspecified SNOMED: 192787601 (3) Intractable vomiting ICD Codes: R11.10 - Vomiting, unspecified SNOMED: 770478643, 746101283 Status: unchanged Assessment/Plan renal failure consulted dr nunez for placement of dyalisis cath per request of dr gordillo Subjective Gastrointestinal/Abdominal: Reports: abdominal pain Allergies: Coded Allergies: No Known Allergies (Unverified , 11/24/16) Objective Last 24 Hour Vital Signs Date Time Temp Pulse Resp B/P Pulse Ox O2 Delivery O2 Flow Rate FiO2 11/29/16 08:00 98.2 76 19 113/70 Room Air 11/28/16 20:00 98.4 81 18 131/67 Room Air 11/28/16 18:15 98.4 11/28/16 12:12 98.4 67 20 100/64 98 Room Air Intake and Output 11/28/16 11/29/16 19:00 07:00 Intake Total 874 ml 1110 ml Balance 874 ml 1110 ml Intake Oral 504 ml 210 ml IV Total 370 ml 900 ml # Voids 5 2 Laboratory Tests 11/28/16 10:47: Prothrombin Time 12.7H, Prothromb Time International Ratio 1.2H, Activated Partial Thromboplast Time 32 11/28/16 23:00: Urine Eosinophils None seen 11/29/16 06:45: White Blood Count 7.7, Red Blood Count 3.54L, Hemoglobin 10.5L, Hematocrit 33.9L , Mean Corpuscular Volume 96, Mean Corpuscular Hemoglobin 29.7, Mean Corpuscular Hemoglobin Concent 31.1L, Red Cell Distribution Width 14.6, Platelet Count 219, Mean Platelet Volume 6.3L, Neutrophils (%) (Auto) 52.5, Lymphocytes (%) (Auto) 28.7, Monocytes (%) (Auto) 10.2H, Eosinophils (%) (Auto) 7.9H, Basophils (%) (Auto) 0.7, Sodium Level [Pending], Potassium Level [Pending ], Chloride Level [Pending], Carbon Dioxide Level [Pending], Blood Urea Nitrogen [Pending], Creatinine [Pending], Estimat Glomerular Filtration Rate [ Pending], Glucose Level [Pending], Uric Acid [Pending], Calcium Level [Pending] , Phosphorus Level [Pending], Magnesium Level [Pending], Total Bilirubin [ Pending], Aspartate Amino Transf (AST/SGOT) [Pending], Alanine Aminotransferase (ALT/SGPT) [Pending], Alkaline Phosphatase [Pending], C-Reactive Protein, Quantitative [Pending], Total Protein [Pending], Albumin [Pending], Globulin [ Pending] Height (Feet): 5 Height (Inches): 4.00 Weight (Pounds): 105 Cardiovascular: normal rate Respiratory/Chest: lungs clear Abdomen: tender Carlos A Dallas MD Nov 29, 2016 08:25
[2016-11-29] MEDS ORDERED: D5NS 1000ml IV ONE (09:42)
--- NOTE | 2016-11-29 09:47 | General Progress Note ---
Assessment/Plan Assessment/Plan (1) Intractable Abdominal pain (2) Hepatitis (3) Pancreatitis The patient will be continued on Dilaudid and is followed by home connect lpn. The patient was discussedwith Dr. Robertson and Dr. Robertson concurred. Subjective Date patient seen: Nov 29, 2016 Time patient seen: 09:00 - am Allergies: Coded Allergies: No Known Allergies (Unverified , 11/24/16) Subjective REVIEW OF SYSTEMS: Denies rash, fever, chills, sweating, dizziness, drowsiness, blurred vision, sore throat, or change in weight. She is complaining of abdominal pain. SUBJECTIVE: Patient continues to c/o abdominal pain which is a 8/10 at its worse reduced to a 0/10 on the Dilaudid Objective Last 24 Hour Vital Signs Date Time Temp Pulse Resp B/P Pulse Ox O2 Delivery O2 Flow Rate FiO2 11/29/16 08:43 98.2 11/29/16 08:00 98.2 76 19 113/70 Room Air 11/28/16 20:00 98.4 81 18 131/67 Room Air 11/28/16 12:12 98.4 67 20 100/64 98 Room Air Intake and Output 11/28/16 11/29/16 19:00 07:00 Intake Total 874 ml 1110 ml Balance 874 ml 1110 ml Intake Oral 504 ml 210 ml IV Total 370 ml 900 ml # Voids 5 2 Laboratory Tests 11/28/16 10:47: Prothrombin Time 12.7H, Prothromb Time International Ratio 1.2H, Activated Partial Thromboplast Time 32 11/28/16 23:00: Urine Eosinophils None seen 11/29/16 06:45: White Blood Count 7.7, Red Blood Count 3.54L, Hemoglobin 10.5L, Hematocrit 33.9L , Mean Corpuscular Volume 96, Mean Corpuscular Hemoglobin 29.7, Mean Corpuscular Hemoglobin Concent 31.1L, Red Cell Distribution Width 14.6, Platelet Count 219, Mean Platelet Volume 6.3L, Neutrophils (%) (Auto) 52.5, Lymphocytes (%) (Auto) 28.7, Monocytes (%) (Auto) 10.2H, Eosinophils (%) (Auto) 7.9H, Basophils (%) (Auto) 0.7, Sodium Level 136, Potassium Level 3.5, Chloride Level 97L, Carbon Dioxide Level 21, Anion Gap 18H, Blood Urea Nitrogen 48H, Creatinine 5.9H, Estimat Glomerular Filtration Rate 10.7, Glucose Level 114H, Uric Acid 7.6H, Calcium Level 8.3L, Phosphorus Level 4.9H, Magnesium Level 2.1, Total Bilirubin 0.6, Aspartate Amino Transf (AST/SGOT) 183H, Alanine Aminotransferase (ALT/SGPT) 595H, Alkaline Phosphatase 71, C-Reactive Protein, Quantitative 1.1H, Total Protein 5.4L, Albumin 3.0L, Globulin 2.4, Albumin/ Globulin Ratio 1.2 Height (Feet): 5 Height (Inches): 4.00 Weight (Pounds): 105 Objective GENERAL: Alert, awake, and oriented. HEENT: PERRLA. NECK: Range of motion is full in all directions. No tenderness. No adenopathy. LUNGS: Decreased breath sounds bilaterally. HEART: S1 and S2, regular. ABDOMEN: Tenderness to palpation. EXTREMITIES: No cyanosis. No clubbing. No edema. NEUROLOGIC: No changes. TYRON MENJIVAR Nov 29, 2016 09:47
[2016-11-29 12:14] VITALS: BP 105/68
--- NOTE | 2016-11-29 13:27 | General Progress Note ---
Assessment/Plan Status: unchanged Status Narrative Cr 5.9 Assessment/Plan Acute renal failure- ON HD NOW - tolerating well. (1) Shock liver (2) Hepatic lesion (3) Intractable vomiting- resolved (4) Severe malnutrition (5) Pancreatitis (6) Hepatitis (7) SIRS (systemic inflammatory response syndrome) Plan: Carroll could not be placed- patient voiding well. JESSE kidney , no hydro IV fluid Urine studies Monitor renal parameters Avoid Nephrotoxics per orders HD as needed Subjective ROS Limited/Unobtainable: No Allergies: Coded Allergies: No Known Allergies (Unverified , 11/24/16) Objective Last 24 Hour Vital Signs Date Time Temp Pulse Resp B/P Pulse Ox O2 Delivery O2 Flow Rate FiO2 11/29/16 12:14 97.3 85 20 105/68 99 Room Air 11/29/16 10:30 Room Air 11/29/16 08:43 98.2 11/29/16 08:00 98.2 76 19 113/70 Room Air 11/28/16 20:00 98.4 81 18 131/67 Room Air Intake and Output 11/28/16 11/29/16 19:00 07:00 Intake Total 874 ml 1110 ml Balance 874 ml 1110 ml Intake Oral 504 ml 210 ml IV Total 370 ml 900 ml # Voids 5 2 Laboratory Tests 11/28/16 23:00: Urine Eosinophils None seen 11/29/16 06:45: White Blood Count 7.7, Red Blood Count 3.54L, Hemoglobin 10.5L, Hematocrit 33.9L , Mean Corpuscular Volume 96, Mean Corpuscular Hemoglobin 29.7, Mean Corpuscular Hemoglobin Concent 31.1L, Red Cell Distribution Width 14.6, Platelet Count 219, Mean Platelet Volume 6.3L, Neutrophils (%) (Auto) 52.5, Lymphocytes (%) (Auto) 28.7, Monocytes (%) (Auto) 10.2H, Eosinophils (%) (Auto) 7.9H, Basophils (%) (Auto) 0.7, Sodium Level 136, Potassium Level 3.5, Chloride Level 97L, Carbon Dioxide Level 21, Anion Gap 18H, Blood Urea Nitrogen 48H, Creatinine 5.9H, Estimat Glomerular Filtration Rate 10.7, Glucose Level 114H, Uric Acid 7.6H, Calcium Level 8.3L, Phosphorus Level 4.9H, Magnesium Level 2.1, Total Bilirubin 0.6, Aspartate Amino Transf (AST/SGOT) 183H, Alanine Aminotransferase (ALT/SGPT) 595H, Alkaline Phosphatase 71, C-Reactive Protein, Quantitative 1.1H, Total Protein 5.4L, Albumin 3.0L, Globulin 2.4, Albumin/ Globulin Ratio 1.2 Height (Feet): 5 Height (Inches): 4.00 Weight (Pounds): 105 General Appearance: no apparent distress Objective no signs of CHF ANTONIO ARVIZU Nov 29, 2016 13:27
--- NOTE | 2016-11-29 14:52 | General Progress Note ---
Assessment/Plan Assessment/Plan Assessment/Plan Problems: (1) Shock liver ICD Codes: K72.00 - Acute and subacute hepatic failure without coma SNOMED: 668963495 (2) Hepatic lesion ICD Codes: K76.9 - Liver disease, unspecified SNOMED: 157021522 (3) Intractable vomiting ICD Codes: R11.10 - Vomiting, unspecified SNOMED: 447864901, 207854669 (4) Severe malnutrition ICD Codes: E43 - Unspecified severe protein-calorie malnutrition SNOMED: 19829641 (5) Pancreatitis ICD Codes: K85.90 - Acute pancreatitis without necrosis or infection, unspecified SNOMED: 42673629 (6) Hepatitis ICD Codes: K75.9 - Inflammatory liver disease, unspecified SNOMED: 567925018 (7) SIRS (systemic inflammatory response syndrome) ICD Codes: R65.10 - Systemic inflammatory response syndrome (SIRS) of non- infectious origin without acute organ dysfunction SNOMED: 292438761 Status: unchanged Assessment/Plan shock liver 2/2 unknown etiology >> AST/ALT downtrending utox positive for benzodiazepines >> pt had received Ativan lipase negative abd US reviewed. APCT reviewed. fu abdominal MRI liver protocol to evaluate hepatic cyst/lesion >> pt has refused twice hep panel >> negative abx zofran prn cont ppi regular diet repeat LFTs fu labs Subjective Allergies: Coded Allergies: No Known Allergies (Unverified , 11/24/16) Subjective Feels better no complaints Objective Last 24 Hour Vital Signs Date Time Temp Pulse Resp B/P Pulse Ox O2 Delivery O2 Flow Rate FiO2 11/29/16 13:55 Room Air 2.0 28 11/29/16 13:55 Room Air 2.0 28 11/29/16 13:51 Room Air 11/29/16 13:43 97.3 11/29/16 12:14 97.3 85 20 105/68 99 Room Air 11/29/16 10:30 Room Air 11/29/16 08:43 98.2 11/29/16 08:00 98.2 76 19 113/70 Room Air 11/28/16 20:00 98.4 81 18 131/67 Room Air Intake and Output 11/28/16 11/29/16 19:00 07:00 Intake Total 874 ml 1110 ml Balance 874 ml 1110 ml Intake Oral 504 ml 210 ml IV Total 370 ml 900 ml # Voids 5 2 Laboratory Tests 11/28/16 23:00: Urine Eosinophils None seen 11/29/16 06:45: White Blood Count 7.7, Red Blood Count 3.54L, Hemoglobin 10.5L, Hematocrit 33.9L , Mean Corpuscular Volume 96, Mean Corpuscular Hemoglobin 29.7, Mean Corpuscular Hemoglobin Concent 31.1L, Red Cell Distribution Width 14.6, Platelet Count 219, Mean Platelet Volume 6.3L, Neutrophils (%) (Auto) 52.5, Lymphocytes (%) (Auto) 28.7, Monocytes (%) (Auto) 10.2H, Eosinophils (%) (Auto) 7.9H, Basophils (%) (Auto) 0.7, Sodium Level 136, Potassium Level 3.5, Chloride Level 97L, Carbon Dioxide Level 21, Anion Gap 18H, Blood Urea Nitrogen 48H, Creatinine 5.9H, Estimat Glomerular Filtration Rate 10.7, Glucose Level 114H, Uric Acid 7.6H, Calcium Level 8.3L, Phosphorus Level 4.9H, Magnesium Level 2.1, Total Bilirubin 0.6, Aspartate Amino Transf (AST/SGOT) 183H, Alanine Aminotransferase (ALT/SGPT) 595H, Alkaline Phosphatase 71, C-Reactive Protein, Quantitative 1.1H, Total Protein 5.4L, Albumin 3.0L, Globulin 2.4, Albumin/ Globulin Ratio 1.2 Height (Feet): 5 Height (Inches): 4.00 Weight (Pounds): 105 Objective Thin AA woman NCAT supple CTA RRR soft ND NT no edema non focal PB BOSS Nov 29, 2016 14:52
[2016-11-29 15:53] VITALS: BP 99/67
[2016-11-29 19:56] VITALS: BP 99/66
[2016-11-30] VITALS (7 sets, daily range): BP systolic 98–120; BP diastolic 60–82
[2016-11-30] MEDS: HYDROmorphone 1mg/ml Carpuject IVP PRN ×6 (01:31→21:37)
[2016-11-30] MEDS: D5NS 1,000 ML IV SCH ×3 (02:36→18:50)
[2016-11-30] MEDS: LORazepam Inj 2mg/ml 1ml IV PRN ×4 (06:24→19:43)
[2016-11-30 06:33] LABS: BASOPHILS % (AUTO) 0.9 % (0.0-2.0); LYMPHOCYTES % (AUTO) 32.9 % (20.0-45.0); MEAN CORPUSCULAR HEMOGLOBIN 29.7 PG (27.0-31.0); MEAN CORPUSCULAR VOLUME 96 FL (80-99); MEAN PLATELET VOLUME 6.7 FL (6.5-10.1); MONOCYTES % (AUTO) 9.7 % (1.0-10.0); NEUTROPHILS % (AUTO) 48.5 % (45.0-75.0); PLATELET COUNT 209 K/UL (150-450); RED BLOOD COUNT 3.58 M/UL (4.20-5.40); RED CELL DISTRIBUTION WIDTH 14.9 % (11.6-14.8); WHITE BLOOD COUNT 8.2 K/UL (4.8-10.8)
[2016-11-30 07:02] LABS: CALCIUM 8.2 mg/dL (8.6-10.2); CREATININE 3.9 mg/dL (0.5-0.9); CRP QUANT 0.7 mg/dL (< 0.5); GLOMERULAR FILTRATION RATE 17.2 mL/min (>60); MAGNESIUM 1.8 mg/dL (1.7-2.5); PHOSPHORUS 4.1 mg/dL (2.5-4.8); POTASSIUM 3.4 mEQ/L (3.4-4.9); URIC ACID 4.9 mg/dL (3.0-7.5)
--- NOTE | 2016-11-30 08:08 | General Progress Note ---
Assessment/Plan Assessment/Plan (1) Intractable Abdominal pain (2) Hepatitis (3) Pancreatitis The patient will be continued on Dilaudid. The patient was discussedwith Dr. Robertson and Dr. Robertson concurred. Subjective Date patient seen: November 30, 2016 Time patient seen: 07:00 - am Allergies: Coded Allergies: No Known Allergies (Unverified , 11/24/16) Subjective REVIEW OF SYSTEMS: Denies rash, fever, chills, sweating, dizziness, drowsiness, blurred vision, sore throat, or change in weight. She is complaining of abdominal pain. SUBJECTIVE: Pain has been unchanged and has been an 8/10 reduced to a moderate level on the Dilaudid. Objective Last 24 Hour Vital Signs Date Time Temp Pulse Resp B/P Pulse Ox O2 Delivery O2 Flow Rate FiO2 11/30/16 06:06 97.3 11/30/16 05:42 97.3 70 19 119/82 100 Room Air 11/30/16 00:00 97.7 79 19 98/60 97 Room Air 11/29/16 19:56 98.1 77 20 99/66 96 Room Air 11/29/16 15:53 97.9 85 20 99/67 Room Air 11/29/16 13:55 Room Air 2.0 28 11/29/16 13:55 Room Air 2.0 28 11/29/16 13:51 Room Air 11/29/16 12:14 97.3 85 20 105/68 99 Room Air 11/29/16 10:30 Room Air 11/29/16 08:43 98.2 Intake and Output 11/29/16 11/30/16 19:00 07:00 Intake Total 300 ml 1000 ml Output Total 0 ml Balance 300 ml 1000 ml Intake Oral 400 ml IV Total 300 ml 600 ml Output Hemodialysis UF 0 ml # Voids 2 Laboratory Tests 11/30/16 05:25: White Blood Count 8.2, Red Blood Count 3.58L, Hemoglobin 10.6L, Hematocrit 34.4L , Mean Corpuscular Volume 96, Mean Corpuscular Hemoglobin 29.7, Mean Corpuscular Hemoglobin Concent 31.0L, Red Cell Distribution Width 14.9H, Platelet Count 209, Mean Platelet Volume 6.7, Neutrophils (%) (Auto) 48.5, Lymphocytes (%) (Auto) 32.9, Monocytes (%) (Auto) 9.7, Eosinophils (%) (Auto) 8.0H, Basophils (%) (Auto) 0.9, Sodium Level 139, Potassium Level 3.4, Chloride Level 98, Carbon Dioxide Level 29, Anion Gap 12, Blood Urea Nitrogen 26H, Creatinine 3.9H, Estimat Glomerular Filtration Rate 17.2, Glucose Level 107H, Uric Acid 4.9, Calcium Level 8.2L, Phosphorus Level 4.1, Magnesium Level 1.8, Total Bilirubin 0.4, Aspartate Amino Transf (AST/SGOT) 94H, Alanine Aminotransferase (ALT/SGPT) 384H, Alkaline Phosphatase 73, C-Reactive Protein, Quantitative 0.7H, Total Protein 5.0L, Albumin 2.5L, Globulin 2.5, Albumin/ Globulin Ratio 1.0 Height (Feet): 5 Height (Inches): 4.00 Weight (Pounds): 105 Objective GENERAL: Alert, awake, and oriented. HEENT: PERRLA. NECK: Range of motion is full in all directions. No tenderness. No adenopathy. LUNGS: Decreased breath sounds bilaterally. HEART: S1 and S2, regular. ABDOMEN: Tenderness to palpation. EXTREMITIES: No cyanosis. No clubbing. No edema. NEUROLOGIC: No changes. TYRON MENJIVAR November 30, 2016 08:08
--- NOTE | 2016-11-30 10:43 | GI Progress Note ---
Assessment/Plan Problems: (1) Shock liver ICD Codes: K72.00 - Acute and subacute hepatic failure without coma SNOMED: 086558275 (2) Hepatic lesion ICD Codes: K76.9 - Liver disease, unspecified SNOMED: 140614647 (3) Intractable vomiting ICD Codes: R11.10 - Vomiting, unspecified SNOMED: 983090787, 273507172 (4) Severe malnutrition ICD Codes: E43 - Unspecified severe protein-calorie malnutrition SNOMED: 84727166 (5) Pancreatitis ICD Codes: K85.90 - Acute pancreatitis without necrosis or infection, unspecified SNOMED: 73139210 (6) Hepatitis ICD Codes: K75.9 - Inflammatory liver disease, unspecified SNOMED: 242646803 (7) SIRS (systemic inflammatory response syndrome) ICD Codes: R65.10 - Systemic inflammatory response syndrome (SIRS) of non- infectious origin without acute organ dysfunction SNOMED: 791462064 Status: stable, progressing Status Narrative Discussed with Dr. Stein. Assessment/Plan shock liver 2/2 unknown etiology >> AST/ALT downtrending utox positive for benzodiazepines >> pt had received Ativan lipase negative abd US reviewed. APCT reviewed. fu abdominal MRI liver protocol to evaluate hepatic cyst/lesion >> pt has refused twice hep panel >> negative abx zofran prn cont ppi regular diet repeat LFTs fu labs Subjective Subjective abdominal pain Objective Last 24 Hour Vital Signs Date Time Temp Pulse Resp B/P Pulse Ox O2 Delivery O2 Flow Rate FiO2 11/30/16 08:00 98.1 97 20 98/66 98 Room Air 11/30/16 06:06 97.3 11/30/16 05:42 97.3 70 19 119/82 100 Room Air 11/30/16 00:00 97.7 79 19 98/60 97 Room Air 11/29/16 19:56 98.1 77 20 99/66 96 Room Air 11/29/16 15:53 97.9 85 20 99/67 Room Air 11/29/16 13:55 Room Air 2.0 28 11/29/16 13:55 Room Air 2.0 28 11/29/16 13:51 Room Air 11/29/16 12:14 97.3 85 20 105/68 99 Room Air Intake and Output 11/29/16 11/30/16 19:00 07:00 Intake Total 300 ml 1000 ml Output Total 0 ml Balance 300 ml 1000 ml Intake Oral 400 ml IV Total 300 ml 600 ml Output Hemodialysis UF 0 ml # Voids 2 Laboratory Tests Test 11/30/16 05:25 White Blood Count 8.2 K/UL (4.8-10.8) Red Blood Count 3.58 M/UL (4.20-5.40) L Hemoglobin 10.6 G/DL (12.0-16.0) L Hematocrit 34.4 % (37.0-47.0) L Mean Corpuscular Volume 96 FL (80-99) Mean Corpuscular Hemoglobin 29.7 PG (27.0-31.0) Mean Corpuscular Hemoglobin Concent 31.0 G/DL (32.0-36.0) L Red Cell Distribution Width 14.9 % (11.6-14.8) H Platelet Count 209 K/UL (150-450) Mean Platelet Volume 6.7 FL (6.5-10.1) Neutrophils (%) (Auto) 48.5 % (45.0-75.0) Lymphocytes (%) (Auto) 32.9 % (20.0-45.0) Monocytes (%) (Auto) 9.7 % (1.0-10.0) Eosinophils (%) (Auto) 8.0 % (0.0-3.0) H Basophils (%) (Auto) 0.9 % (0.0-2.0) Sodium Level 139 mEQ/L (135-145) Potassium Level 3.4 mEQ/L (3.4-4.9) Chloride Level 98 mEQ/L (98-107) Carbon Dioxide Level 29 mEQ/L (20-30) Anion Gap 12 (5-15) Blood Urea Nitrogen 26 mg/dL (7-23) H Creatinine 3.9 mg/dL (0.5-0.9) H Estimat Glomerular Filtration Rate 17.2 mL/min (>60) Glucose Level 107 mg/dL (74-106) H Uric Acid 4.9 mg/dL (3.0-7.5) Calcium Level 8.2 mg/dL (8.6-10.2) L Phosphorus Level 4.1 mg/dL (2.5-4.8) Magnesium Level 1.8 mg/dL (1.7-2.5) Total Bilirubin 0.4 mg/dL (0.0-1.2) Aspartate Amino Transf (AST/SGOT) 94 U/L (5-40) H Alanine Aminotransferase (ALT/SGPT) 384 U/L (3-33) H Alkaline Phosphatase 73 U/L (35-104) C-Reactive Protein, Quantitative 0.7 mg/dL (< 0.5) H Total Protein 5.0 g/dL (6.6-8.7) L Albumin 2.5 g/dL (3.5-5.2) L Globulin 2.5 g/dL Albumin/Globulin Ratio 1.0 (1.0-2.7) Height (Feet): 5 Height (Inches): 4.00 Weight (Pounds): 105 General Appearance: no apparent distress, alert, thin Cardiovascular: normal rate Respiratory/Chest: normal breath sounds, no respiratory distress Abdominal Exam: normal bowel sounds, non tender, soft Arianne Caballero N.P. November 30, 2016 10:43
--- NOTE | 2016-11-30 11:54 | General Progress Note ---
Progress Note Progress Note All noted; was dialyzed via femoral HD cath. Vascular status quo; stable -- HD plan per nephrology -- if needs HD beyond few days recommend CRISTOPHER Phillips November 30, 2016 11:54
--- NOTE | 2016-11-30 15:05 | General Progress Note ---
Assessment/Plan Status: unchanged Assessment/Plan Acute renal failure- HD 11/29 - monitor renal parameters (1) Shock liver (2) Hepatic lesion (3) Intractable vomiting- resolved (4) Severe malnutrition (5) Pancreatitis (6) Hepatitis (7) SIRS (systemic inflammatory response syndrome) Plan: Carroll could not be placed- patient voiding well. JESSE kidney , no hydro IV fluid Urine studies Monitor renal parameters Avoid Nephrotoxics per orders HD as needed Subjective ROS Limited/Unobtainable: No Constitutional: Reports: malaise Allergies: Coded Allergies: No Known Allergies (Unverified , 11/24/16) Objective Last 24 Hour Vital Signs Date Time Temp Pulse Resp B/P Pulse Ox O2 Delivery O2 Flow Rate FiO2 11/30/16 12:00 97.0 82 18 111/71 98 Room Air 11/30/16 08:00 98.1 97 20 98/66 98 Room Air 11/30/16 06:06 97.3 11/30/16 05:42 97.3 70 19 119/82 100 Room Air 11/30/16 00:00 97.7 79 19 98/60 97 Room Air 11/29/16 19:56 98.1 77 20 99/66 96 Room Air 11/29/16 15:53 97.9 85 20 99/67 Room Air Intake and Output 11/29/16 11/30/16 19:00 07:00 Intake Total 300 ml 1000 ml Output Total 0 ml Balance 300 ml 1000 ml Intake Oral 400 ml IV Total 300 ml 600 ml Output Hemodialysis UF 0 ml # Voids 2 Laboratory Tests 11/30/16 05:25: White Blood Count 8.2, Red Blood Count 3.58L, Hemoglobin 10.6L, Hematocrit 34.4L , Mean Corpuscular Volume 96, Mean Corpuscular Hemoglobin 29.7, Mean Corpuscular Hemoglobin Concent 31.0L, Red Cell Distribution Width 14.9H, Platelet Count 209, Mean Platelet Volume 6.7, Neutrophils (%) (Auto) 48.5, Lymphocytes (%) (Auto) 32.9, Monocytes (%) (Auto) 9.7, Eosinophils (%) (Auto) 8.0H, Basophils (%) (Auto) 0.9, Sodium Level 139, Potassium Level 3.4, Chloride Level 98, Carbon Dioxide Level 29, Anion Gap 12, Blood Urea Nitrogen 26H, Creatinine 3.9H, Estimat Glomerular Filtration Rate 17.2, Glucose Level 107H, Uric Acid 4.9, Calcium Level 8.2L, Phosphorus Level 4.1, Magnesium Level 1.8, Total Bilirubin 0.4, Aspartate Amino Transf (AST/SGOT) 94H, Alanine Aminotransferase (ALT/SGPT) 384H, Alkaline Phosphatase 73, C-Reactive Protein, Quantitative 0.7H, Total Protein 5.0L, Albumin 2.5L, Globulin 2.5, Albumin/ Globulin Ratio 1.0 11/30/16 12:00: Urine Eosinophils None seen Height (Feet): 5 Height (Inches): 4.00 Weight (Pounds): 105 General Appearance: no apparent distress Objective no signs of CHF ANTONIO ARVIZU November 30, 2016 15:05
--- NOTE | 2016-11-30 15:10 | General Progress Note ---
Assessment/Plan Problem List: (1) Pancreatitis ICD Codes: K85.90 - Acute pancreatitis without necrosis or infection, unspecified SNOMED: 07315771 (2) Hepatitis ICD Codes: K75.9 - Inflammatory liver disease, unspecified SNOMED: 412805921 (3) Intractable vomiting ICD Codes: R11.10 - Vomiting, unspecified SNOMED: 880902137, 288847094 Status: stable Assessment/Plan afebrile abdominal pain arf is getting diaylsis is making some urine r/o ATN Subjective ROS Limited/Unobtainable: Yes Constitutional: Reports: no symptoms Allergies: Coded Allergies: No Known Allergies (Unverified , 11/24/16) Objective Last 24 Hour Vital Signs Date Time Temp Pulse Resp B/P Pulse Ox O2 Delivery O2 Flow Rate FiO2 11/30/16 12:00 97.0 82 18 111/71 98 Room Air 11/30/16 08:00 98.1 97 20 98/66 98 Room Air 11/30/16 06:06 97.3 11/30/16 05:42 97.3 70 19 119/82 100 Room Air 11/30/16 00:00 97.7 79 19 98/60 97 Room Air 11/29/16 19:56 98.1 77 20 99/66 96 Room Air 11/29/16 15:53 97.9 85 20 99/67 Room Air Intake and Output 11/29/16 11/30/16 19:00 07:00 Intake Total 300 ml 1000 ml Output Total 0 ml Balance 300 ml 1000 ml Intake Oral 400 ml IV Total 300 ml 600 ml Output Hemodialysis UF 0 ml # Voids 2 Laboratory Tests 11/30/16 05:25: White Blood Count 8.2, Red Blood Count 3.58L, Hemoglobin 10.6L, Hematocrit 34.4L , Mean Corpuscular Volume 96, Mean Corpuscular Hemoglobin 29.7, Mean Corpuscular Hemoglobin Concent 31.0L, Red Cell Distribution Width 14.9H, Platelet Count 209, Mean Platelet Volume 6.7, Neutrophils (%) (Auto) 48.5, Lymphocytes (%) (Auto) 32.9, Monocytes (%) (Auto) 9.7, Eosinophils (%) (Auto) 8.0H, Basophils (%) (Auto) 0.9, Sodium Level 139, Potassium Level 3.4, Chloride Level 98, Carbon Dioxide Level 29, Anion Gap 12, Blood Urea Nitrogen 26H, Creatinine 3.9H, Estimat Glomerular Filtration Rate 17.2, Glucose Level 107H, Uric Acid 4.9, Calcium Level 8.2L, Phosphorus Level 4.1, Magnesium Level 1.8, Total Bilirubin 0.4, Aspartate Amino Transf (AST/SGOT) 94H, Alanine Aminotransferase (ALT/SGPT) 384H, Alkaline Phosphatase 73, C-Reactive Protein, Quantitative 0.7H, Total Protein 5.0L, Albumin 2.5L, Globulin 2.5, Albumin/ Globulin Ratio 1.0 11/30/16 12:00: Urine Eosinophils None seen Height (Feet): 5 Height (Inches): 4.00 Weight (Pounds): 105 EENT: PERRL/EOMI Neck: supple Cardiovascular: normal rate Respiratory/Chest: lungs clear Abdomen: soft Carlos A Dallas MD November 30, 2016 15:09
--- NOTE | 2016-11-30 15:12 | Infectious Diseases Prog Note ---
Assessment/Plan Problems: (1) Pancreatitis Assessment & Plan: no need for antibiotics , continue supportive care and hydration (2) Hepatitis Assessment & Plan: suspect liver shock, with negative hepatitis panel, avoid hepatotoxic meds, monitor LFT (3) Intractable vomiting Assessment & Plan: suspect due to the above, continue supportive care, and nausea meds, GI is following (4) Hepatic lesion Assessment & Plan: recommend follow up images with GI in the future.and monitor tumor markers (5) DICK (acute kidney injury) Assessment & Plan: not improving, continue hydration, avoid nephrotoxic meds, may need HD, renal is following Subjective Constitutional: Reports: no symptoms HEENT: Reports: no symptoms Respiratory: Reports: no symptoms Cardiovascular: Reports: no symptoms Gastrointestinal/Abdominal: Reports: no symptoms Genitourinary: Reports: no symptoms Neurologic: Reports: no symptoms Psychiatric: Reports: no symptoms Skin: Reports: no symptoms Endocrine: Reports: no symptoms Allergies: Coded Allergies: No Known Allergies (Unverified , 11/24/16) Subjective she was sleeping , and response to verbal commands, afebrile, no nausea or vomiting Objective Vital Signs Last 24 Hour Vital Signs Date Time Temp Pulse Resp B/P Pulse Ox O2 Delivery O2 Flow Rate FiO2 11/30/16 12:00 97.0 82 18 111/71 98 Room Air 11/30/16 08:00 98.1 97 20 98/66 98 Room Air 11/30/16 06:06 97.3 11/30/16 05:42 97.3 70 19 119/82 100 Room Air 11/30/16 00:00 97.7 79 19 98/60 97 Room Air 11/29/16 19:56 98.1 77 20 99/66 96 Room Air 11/29/16 15:53 97.9 85 20 99/67 Room Air Height (Feet): 5 Height (Inches): 4.00 Weight (Pounds): 105 General Appearance: WD/WN, no acute distress HEENT: normocephalic, atraumatic, anicteric, mucous membranes moist Respiratory/Chest: chest wall non-tender, lungs clear, normal breath sounds, no respiratory distress, no accessory muscle use Cardiovascular: normal peripheral pulses, normal rate, regular rhythm, no JVD Abdomen: normal bowel sounds, soft, non tender, no organomegaly, non distended , no mass Extremities: no cyanosis, no clubbing Skin: no rash, no lesions Laboratory Tests Test 11/30/16 05:25 11/30/16 12:00 White Blood Count 8.2 K/UL (4.8-10.8) Red Blood Count 3.58 M/UL (4.20-5.40) L Hemoglobin 10.6 G/DL (12.0-16.0) L Hematocrit 34.4 % (37.0-47.0) L Mean Corpuscular Volume 96 FL (80-99) Mean Corpuscular Hemoglobin 29.7 PG (27.0-31.0) Mean Corpuscular Hemoglobin Concent 31.0 G/DL (32.0-36.0) L Red Cell Distribution Width 14.9 % (11.6-14.8) H Platelet Count 209 K/UL (150-450) Mean Platelet Volume 6.7 FL (6.5-10.1) Neutrophils (%) (Auto) 48.5 % (45.0-75.0) Lymphocytes (%) (Auto) 32.9 % (20.0-45.0) Monocytes (%) (Auto) 9.7 % (1.0-10.0) Eosinophils (%) (Auto) 8.0 % (0.0-3.0) H Basophils (%) (Auto) 0.9 % (0.0-2.0) Sodium Level 139 mEQ/L (135-145) Potassium Level 3.4 mEQ/L (3.4-4.9) Chloride Level 98 mEQ/L (98-107) Carbon Dioxide Level 29 mEQ/L (20-30) Anion Gap 12 (5-15) Blood Urea Nitrogen 26 mg/dL (7-23) H Creatinine 3.9 mg/dL (0.5-0.9) H Estimat Glomerular Filtration Rate 17.2 mL/min (>60) Glucose Level 107 mg/dL (74-106) H Uric Acid 4.9 mg/dL (3.0-7.5) Calcium Level 8.2 mg/dL (8.6-10.2) L Phosphorus Level 4.1 mg/dL (2.5-4.8) Magnesium Level 1.8 mg/dL (1.7-2.5) Total Bilirubin 0.4 mg/dL (0.0-1.2) Aspartate Amino Transf (AST/SGOT) 94 U/L (5-40) H Alanine Aminotransferase (ALT/SGPT) 384 U/L (3-33) H Alkaline Phosphatase 73 U/L (35-104) C-Reactive Protein, Quantitative 0.7 mg/dL (< 0.5) H Total Protein 5.0 g/dL (6.6-8.7) L Albumin 2.5 g/dL (3.5-5.2) L Globulin 2.5 g/dL Albumin/Globulin Ratio 1.0 (1.0-2.7) Urine Eosinophils None seen Current Medications Medications (Trade) Dose Ordered Sig/Duncan Route PRN Reason Start Time Stop Time Status Last Admin Dose Admin Acetaminophen (Tylenol) 650 mg Q6H PRN ORAL Mild Pain/Temp > 100.5 11/24/16 17:00 12/24/16 16:59 11/25/16 20:30 Dextrose/Sodium Chloride (D5ns) 1,000 ml @ 100 mls/hr Q10H IV 11/27/16 15:30 12/27/16 15:29 11/30/16 08:20 Hydromorphone HCl (Dilaudid) 1 mg Q4H PRN IVP For severe Pain 11/29/16 13:00 12/06/16 23:59 11/30/16 13:36 Lorazepam 1 mg 1 mg Q4H PRN IV For Anxiety 11/25/16 10:30 12/02/16 10:29 11/30/16 11:03 Ondansetron HCl (Zofran) 4 mg Q4H PRN IVP Nausea & Vomiting 11/24/16 16:15 12/24/16 16:14 11/28/16 16:16 Pantoprazole (Protonix) 40 mg DAILY ORAL 11/28/16 11:00 12/28/16 10:59 11/30/16 08:21 Jesus Mccabe M.D. November 30, 2016 15:12
[2016-11-30 18:36] LABS: ALBUMIN/GLOBULIN RATIO 1.3 (1.0-2.7); CALCIUM 8.1 mg/dL (8.6-10.2); GLOMERULAR FILTRATION RATE 16.6 mL/min (>60); POTASSIUM 4.2 mEQ/L (3.4-4.9); TOTAL PROTEIN 4.7 g/dL (6.6-8.7)
[2016-11-30] MEDS ORDERED: D5NS 1000ml IV ONE (20:38)
[2016-12-01] MEDS: LORazepam Inj 2mg/ml 1ml IV PRN ×2 (01:13→07:48)
[2016-12-01] MEDS: HYDROmorphone 1mg/ml Carpuject IVP PRN ×4 (01:43→13:36)
[2016-12-01 04:18] VITALS: BP 106/66
[2016-12-01 06:32] LABS: EOSINOPHILS % (AUTO) 6.9 % (0.0-3.0); MEAN CORPUSCULAR HEMOGLOBIN 29.6 PG (27.0-31.0); MEAN CORPUSCULAR HGB CONC 31.3 G/DL (32.0-36.0); MEAN CORPUSCULAR VOLUME 94 FL (80-99); MEAN PLATELET VOLUME 6.3 FL (6.5-10.1); MONOCYTES % (AUTO) 8.7 % (1.0-10.0); NEUTROPHILS % (AUTO) 53.5 % (45.0-75.0); PLATELET COUNT 212 K/UL (150-450); RED BLOOD COUNT 3.53 M/UL (4.20-5.40); RED CELL DISTRIBUTION WIDTH 14.3 % (11.6-14.8); WHITE BLOOD COUNT 8.8 K/UL (4.8-10.8)
[2016-12-01 07:03] LABS: HEMOLYSIS 11; IRON 80 ug/dL (37-145); TOTAL IRON BINDING CAPACITY 215 ug/dL (250-400)
[2016-12-01 07:09] LABS: CALCIUM 8.3 mg/dL (8.6-10.2); CREATININE 3.9 mg/dL (0.5-0.9); GLOMERULAR FILTRATION RATE 17.2 mL/min (>60); TOTAL PROTEIN 4.8 g/dL (6.6-8.7)
[2016-12-01 08:13] VITALS: BP 110/77
--- NOTE | 2016-12-01 08:49 | General Progress Note ---
Assessment/Plan Assessment/Plan (1) Intractable Abdominal pain (2) Hepatitis (3) Pancreatitis The patient will be continued on Dilaudid. Rx for [place] 5/325mg 20 tabs written in anticipation of discharge. The patient was discussedwith Dr. Robertson and Dr. Robertson concurred. Subjective Date patient seen: December 01, 2016 Time patient seen: 07:00 - am Allergies: Coded Allergies: No Known Allergies (Unverified , 11/24/16) Subjective REVIEW OF SYSTEMS: Denies rash, fever, chills, sweating, dizziness, drowsiness, blurred vision, sore throat, or change in weight. SUBJECTIVE: Pt is in bed in no acute distress or signs of pain at this time and uses the Dilaudid as needed. Objective Last 24 Hour Vital Signs Date Time Temp Pulse Resp B/P Pulse Ox O2 Delivery O2 Flow Rate FiO2 12/01/16 08:13 97.7 74 18 110/77 98 Room Air 12/01/16 06:11 97.7 12/01/16 04:18 97.7 75 18 106/66 98 Room Air 11/30/16 23:46 97.9 85 19 112/69 95 Room Air 11/30/16 19:54 98.9 80 19 118/82 100 Room Air 11/30/16 16:00 98.1 76 20 120/65 100 11/30/16 12:00 97.0 82 18 111/71 98 Room Air Intake and Output 11/30/16 12/01/16 19:00 07:00 Intake Total 1740 ml 300 ml Balance 1740 ml 300 ml Intake Oral 840 ml IV Total 900 ml 300 ml # Voids 5 3 Laboratory Tests 11/30/16 12:00: Urine Eosinophils None seen 11/30/16 17:40: Sodium Level 136, Potassium Level 4.2, Chloride Level 98, Carbon Dioxide Level 24, Anion Gap 14, Blood Urea Nitrogen 28H, Creatinine 4.0H, Estimat Glomerular Filtration Rate 16.6, Glucose Level 121H, Calcium Level 8.1L, Total Bilirubin 0.3, Aspartate Amino Transf (AST/SGOT) 78H, Alanine Aminotransferase (ALT/SGPT) 337H, Alkaline Phosphatase 79, Total Protein 4.7L, Albumin 2.7L, Globulin 2.0, Albumin/Globulin Ratio 1.3 12/01/16 05:10: Sodium Level 139, Potassium Level 4.0, Chloride Level 100, Carbon Dioxide Level 26, Anion Gap 13, Blood Urea Nitrogen 30H, Creatinine 3.9H, Estimat Glomerular Filtration Rate 17.2, Glucose Level 85, Calcium Level 8.3L, Total Bilirubin 0.3 , Aspartate Amino Transf (AST/SGOT) 55H, Alanine Aminotransferase (ALT/SGPT) 269H, Alkaline Phosphatase 60, Total Protein 4.8L, Albumin 2.4L, Globulin 2.4, Albumin/Globulin Ratio 1.0, White Blood Count 8.8, Red Blood Count 3.53L, Hemoglobin 10.4L, Hematocrit 33.3L, Mean Corpuscular Volume 94, Mean Corpuscular Hemoglobin 29.6, Mean Corpuscular Hemoglobin Concent 31.3L, Red Cell Distribution Width 14.3, Platelet Count 212, Mean Platelet Volume 6.3L, Neutrophils (%) (Auto) 53.5, Lymphocytes (%) (Auto) 30.0, Monocytes (%) (Auto) 8.7, Eosinophils (%) (Auto) 6.9H, Basophils (%) (Auto) 1.0, Iron Level 80, Total Iron Binding Capacity 215L, Percent Iron Saturation 37, Unsaturated Iron Binding 135 Height (Feet): 5 Height (Inches): 4.00 Weight (Pounds): 105 Objective GENERAL: Alert, awake, and oriented. HEENT: PERRLA. NECK: Range of motion is full in all directions. No tenderness. No adenopathy. LUNGS: Decreased breath sounds bilaterally. HEART: S1 and S2, regular. ABDOMEN: Tenderness to palpation. EXTREMITIES: No cyanosis. No clubbing. No edema. NEUROLOGIC: No changes. TYRON MENJIVAR NAruna PKade December 01, 2016 08:49
[2016-12-01] MEDS: D5NS 1,000 ML IV SCH (09:30)
--- NOTE | 2016-12-01 11:14 | GI Progress Note ---
Assessment/Plan Problems: (1) Shock liver ICD Codes: K72.00 - Acute and subacute hepatic failure without coma SNOMED: 958385603 (2) Hepatic lesion ICD Codes: K76.9 - Liver disease, unspecified SNOMED: 048781763 (3) Intractable vomiting ICD Codes: R11.10 - Vomiting, unspecified SNOMED: 835595498, 533502470 (4) Severe malnutrition ICD Codes: E43 - Unspecified severe protein-calorie malnutrition SNOMED: 97920212 (5) Pancreatitis ICD Codes: K85.90 - Acute pancreatitis without necrosis or infection, unspecified SNOMED: 72891380 (6) Hepatitis ICD Codes: K75.9 - Inflammatory liver disease, unspecified SNOMED: 385541393 (7) SIRS (systemic inflammatory response syndrome) ICD Codes: R65.10 - Systemic inflammatory response syndrome (SIRS) of non- infectious origin without acute organ dysfunction SNOMED: 549680654 Status: unchanged Status Narrative Discussed with Dr. Stein. Assessment/Plan shock liver 2/2 unknown etiology >> AST/ALT downtrending utox positive for benzodiazepines >> pt had received Ativan lipase negative abd US reviewed. APCT reviewed. fu abdominal MRI liver protocol to evaluate hepatic cyst/lesion >> pt has refused twice hep panel >> negative abx zofran prn cont ppi regular diet repeat LFTs fu labs Subjective Subjective abdominal pain Objective Last 24 Hour Vital Signs Date Time Temp Pulse Resp B/P Pulse Ox O2 Delivery O2 Flow Rate FiO2 12/01/16 10:11 97.7 12/01/16 08:13 97.7 74 18 110/77 98 Room Air 12/01/16 04:18 97.7 75 18 106/66 98 Room Air 11/30/16 23:46 97.9 85 19 112/69 95 Room Air 11/30/16 19:54 98.9 80 19 118/82 100 Room Air 11/30/16 16:00 98.1 76 20 120/65 100 11/30/16 12:00 97.0 82 18 111/71 98 Room Air Intake and Output 11/30/16 12/01/16 19:00 07:00 Intake Total 1740 ml 300 ml Balance 1740 ml 300 ml Intake Oral 840 ml IV Total 900 ml 300 ml # Voids 5 3 Laboratory Tests Test 11/30/16 12:00 11/30/16 17:40 12/01/16 05:10 Urine Eosinophils None seen Sodium Level 136 mEQ/L (135-145) 139 mEQ/L (135-145) Potassium Level 4.2 mEQ/L (3.4-4.9) 4.0 mEQ/L (3.4-4.9) Chloride Level 98 mEQ/L (98-107) 100 mEQ/L (98-107) Carbon Dioxide Level 24 mEQ/L (20-30) 26 mEQ/L (20-30) Anion Gap 14 (5-15) 13 (5-15) Blood Urea Nitrogen 28 mg/dL (7-23) H 30 mg/dL (7-23) H Creatinine 4.0 mg/dL (0.5-0.9) H 3.9 mg/dL (0.5-0.9) H Estimat Glomerular Filtration Rate 16.6 mL/min (>60) 17.2 mL/min (>60) Glucose Level 121 mg/dL (74-106) H 85 mg/dL (74-106) Calcium Level 8.1 mg/dL (8.6-10.2) L 8.3 mg/dL (8.6-10.2) L Total Bilirubin 0.3 mg/dL (0.0-1.2) 0.3 mg/dL (0.0-1.2) Aspartate Amino Transf (AST/SGOT) 78 U/L (5-40) H 55 U/L (5-40) H Alanine Aminotransferase (ALT/SGPT) 337 U/L (3-33) H 269 U/L (3-33) H Alkaline Phosphatase 79 U/L (35-104) 60 U/L (35-104) Total Protein 4.7 g/dL (6.6-8.7) L 4.8 g/dL (6.6-8.7) L Albumin 2.7 g/dL (3.5-5.2) L 2.4 g/dL (3.5-5.2) L Globulin 2.0 g/dL 2.4 g/dL Albumin/Globulin Ratio 1.3 (1.0-2.7) 1.0 (1.0-2.7) White Blood Count 8.8 K/UL (4.8-10.8) Red Blood Count 3.53 M/UL (4.20-5.40) L Hemoglobin 10.4 G/DL (12.0-16.0) L Hematocrit 33.3 % (37.0-47.0) L Mean Corpuscular Volume 94 FL (80-99) Mean Corpuscular Hemoglobin 29.6 PG (27.0-31.0) Mean Corpuscular Hemoglobin Concent 31.3 G/DL (32.0-36.0) L Red Cell Distribution Width 14.3 % (11.6-14.8) Platelet Count 212 K/UL (150-450) Mean Platelet Volume 6.3 FL (6.5-10.1) L Neutrophils (%) (Auto) 53.5 % (45.0-75.0) Lymphocytes (%) (Auto) 30.0 % (20.0-45.0) Monocytes (%) (Auto) 8.7 % (1.0-10.0) Eosinophils (%) (Auto) 6.9 % (0.0-3.0) H Basophils (%) (Auto) 1.0 % (0.0-2.0) Iron Level 80 ug/dL (37-145) Total Iron Binding Capacity 215 ug/dL (250-400) L Percent Iron Saturation 37 % (15-50) Unsaturated Iron Binding 135 ug/dL (112-346) Height (Feet): 5 Height (Inches): 4.00 Weight (Pounds): 105 General Appearance: no apparent distress, alert, thin Cardiovascular: normal rate Respiratory/Chest: normal breath sounds, no respiratory distress Abdominal Exam: normal bowel sounds, non tender, soft Arianne Caballero N.PAruna December 01, 2016 11:14
[2016-12-01 12:23] VITALS: BP 115/78
--- NOTE | 2016-12-01 12:53 | General Progress Note ---
Assessment/Plan Status: unchanged Status Narrative Cr leveling Assessment/Plan Acute renal failure- HD 11/29 - monitor renal parameters (1) Shock liver (2) Hepatic lesion (3) Intractable vomiting- resolved (4) Severe malnutrition (5) Pancreatitis (6) Hepatitis (7) SIRS (systemic inflammatory response syndrome) Plan: another dialysis attempt today JESSE kidney , no hydro IV fluid Urine studies Monitor renal parameters Avoid Nephrotoxics per orders HD as needed, ordered again today patient reluctant and wants to be DCed AMA ! Subjective ROS Limited/Unobtainable: No Constitutional: Reports: malaise Allergies: Coded Allergies: No Known Allergies (Unverified , 11/24/16) Objective Last 24 Hour Vital Signs Date Time Temp Pulse Resp B/P Pulse Ox O2 Delivery O2 Flow Rate FiO2 12/01/16 12:23 98.4 73 14 115/78 96 Room Air 12/01/16 11:15 Room Air 2.0 28 12/01/16 10:11 97.7 12/01/16 08:13 97.7 74 18 110/77 98 Room Air 12/01/16 04:18 97.7 75 18 106/66 98 Room Air 11/30/16 23:46 97.9 85 19 112/69 95 Room Air 11/30/16 19:54 98.9 80 19 118/82 100 Room Air 11/30/16 16:00 98.1 76 20 120/65 100 Intake and Output 11/30/16 12/01/16 19:00 07:00 Intake Total 1740 ml 300 ml Balance 1740 ml 300 ml Intake Oral 840 ml IV Total 900 ml 300 ml # Voids 5 3 Laboratory Tests 11/30/16 17:40: Sodium Level 136, Potassium Level 4.2, Chloride Level 98, Carbon Dioxide Level 24, Anion Gap 14, Blood Urea Nitrogen 28H, Creatinine 4.0H, Estimat Glomerular Filtration Rate 16.6, Glucose Level 121H, Calcium Level 8.1L, Total Bilirubin 0.3, Aspartate Amino Transf (AST/SGOT) 78H, Alanine Aminotransferase (ALT/SGPT) 337H, Alkaline Phosphatase 79, Total Protein 4.7L, Albumin 2.7L, Globulin 2.0, Albumin/Globulin Ratio 1.3 12/01/16 05:10: Sodium Level 139, Potassium Level 4.0, Chloride Level 100, Carbon Dioxide Level 26, Anion Gap 13, Blood Urea Nitrogen 30H, Creatinine 3.9H, Estimat Glomerular Filtration Rate 17.2, Glucose Level 85, Calcium Level 8.3L, Total Bilirubin 0.3 , Aspartate Amino Transf (AST/SGOT) 55H, Alanine Aminotransferase (ALT/SGPT) 269H, Alkaline Phosphatase 60, Total Protein 4.8L, Albumin 2.4L, Globulin 2.4, Albumin/Globulin Ratio 1.0, White Blood Count 8.8, Red Blood Count 3.53L, Hemoglobin 10.4L, Hematocrit 33.3L, Mean Corpuscular Volume 94, Mean Corpuscular Hemoglobin 29.6, Mean Corpuscular Hemoglobin Concent 31.3L, Red Cell Distribution Width 14.3, Platelet Count 212, Mean Platelet Volume 6.3L, Neutrophils (%) (Auto) 53.5, Lymphocytes (%) (Auto) 30.0, Monocytes (%) (Auto) 8.7, Eosinophils (%) (Auto) 6.9H, Basophils (%) (Auto) 1.0, Iron Level 80, Total Iron Binding Capacity 215L, Percent Iron Saturation 37, Unsaturated Iron Binding 135 Height (Feet): 5 Height (Inches): 4.00 Weight (Pounds): 105 General Appearance: no apparent distress Cardiovascular: regular rhythm Respiratory/Chest: lungs clear Abdomen: soft Objective no signs of CHF ANTONIO ARVIZU December 01, 2016 12:53
--- NOTE | 2016-12-01 14:36 | General Progress Note ---
Assessment/Plan Problem List: (1) Pancreatitis ICD Codes: K85.90 - Acute pancreatitis without necrosis or infection, unspecified SNOMED: 28567806 (2) Hepatitis ICD Codes: K75.9 - Inflammatory liver disease, unspecified SNOMED: 295403990 (3) Intractable vomiting ICD Codes: R11.10 - Vomiting, unspecified SNOMED: 428272145, 937433092 Status: progressing Assessment/Plan arf of unclear etiology getting diaylsis can go to contracted hospital if ok w dr gordillo Subjective ROS Limited/Unobtainable: Yes Constitutional: Reports: no symptoms Allergies: Coded Allergies: No Known Allergies (Unverified , 11/24/16) Objective Last 24 Hour Vital Signs Date Time Temp Pulse Resp B/P Pulse Ox O2 Delivery O2 Flow Rate FiO2 12/01/16 14:20 Room Air 2.0 28 12/01/16 14:06 98.4 12/01/16 12:23 98.4 73 14 115/78 96 Room Air 12/01/16 11:15 Room Air 2.0 28 12/01/16 08:13 97.7 74 18 110/77 98 Room Air 12/01/16 04:18 97.7 75 18 106/66 98 Room Air 11/30/16 23:46 97.9 85 19 112/69 95 Room Air 11/30/16 19:54 98.9 80 19 118/82 100 Room Air 11/30/16 16:00 98.1 76 20 120/65 100 Intake and Output 11/30/16 12/01/16 19:00 07:00 Intake Total 1740 ml 300 ml Balance 1740 ml 300 ml Intake Oral 840 ml IV Total 900 ml 300 ml # Voids 5 3 Laboratory Tests 11/30/16 17:40: Sodium Level 136, Potassium Level 4.2, Chloride Level 98, Carbon Dioxide Level 24, Anion Gap 14, Blood Urea Nitrogen 28H, Creatinine 4.0H, Estimat Glomerular Filtration Rate 16.6, Glucose Level 121H, Calcium Level 8.1L, Total Bilirubin 0.3, Aspartate Amino Transf (AST/SGOT) 78H, Alanine Aminotransferase (ALT/SGPT) 337H, Alkaline Phosphatase 79, Total Protein 4.7L, Albumin 2.7L, Globulin 2.0, Albumin/Globulin Ratio 1.3 5/2/17 05:10: Sodium Level 139, Potassium Level 4.0, Chloride Level 100, Carbon Dioxide Level 26, Anion Gap 13, Blood Urea Nitrogen 30H, Creatinine 3.9H, Estimat Glomerular Filtration Rate 17.2, Glucose Level 85, Calcium Level 8.3L, Total Bilirubin 0.3 , Aspartate Amino Transf (AST/SGOT) 55H, Alanine Aminotransferase (ALT/SGPT) 269H, Alkaline Phosphatase 60, Total Protein 4.8L, Albumin 2.4L, Globulin 2.4, Albumin/Globulin Ratio 1.0, White Blood Count 8.8, Red Blood Count 3.53L, Hemoglobin 10.4L, Hematocrit 33.3L, Mean Corpuscular Volume 94, Mean Corpuscular Hemoglobin 29.6, Mean Corpuscular Hemoglobin Concent 31.3L, Red Cell Distribution Width 14.3, Platelet Count 212, Mean Platelet Volume 6.3L, Neutrophils (%) (Auto) 53.5, Lymphocytes (%) (Auto) 30.0, Monocytes (%) (Auto) 8.7, Eosinophils (%) (Auto) 6.9H, Basophils (%) (Auto) 1.0, Iron Level 80, Total Iron Binding Capacity 215L, Percent Iron Saturation 37, Unsaturated Iron Binding 135 Height (Feet): 5 Height (Inches): 4.00 Weight (Pounds): 105 EENT: PERRL/EOMI Neck: supple Cardiovascular: normal rate Respiratory/Chest: lungs clear Abdomen: soft Carlos A Dallas MD December 01, 2016 14:36
--- NOTE | 2016-12-01 14:56 | Infectious Diseases Prog Note ---
Assessment/Plan Problems: (1) Pancreatitis Assessment & Plan: improving , continue supportive care and hydration (2) Hepatitis Assessment & Plan: improving, suspect liver shock, with negative hepatitis panel, avoid hepatotoxic meds, monitor LFT (3) Intractable vomiting Assessment & Plan: suspect due to the above, continue supportive care, and nausea meds, GI is following (4) Hepatic lesion Assessment & Plan: recommend follow up images with GI in the future.and monitor tumor markers (5) DICK (acute kidney injury) Assessment & Plan: started to make urine , avoid nephrotoxic meds, started on HD, renal is following Subjective Constitutional: Reports: no symptoms HEENT: Reports: no symptoms Respiratory: Reports: no symptoms Breasts: Reports: no symptoms Cardiovascular: Reports: no symptoms Gastrointestinal/Abdominal: Reports: no symptoms Genitourinary: Reports: no symptoms Neurologic: Reports: no symptoms Psychiatric: Reports: no symptoms Skin: Reports: no symptoms Allergies: Coded Allergies: No Known Allergies (Unverified , 11/24/16) Subjective she was sleeping , and response to verbal commands, afebrile, no nausea or vomiting Objective Vital Signs Last 24 Hour Vital Signs Date Time Temp Pulse Resp B/P Pulse Ox O2 Delivery O2 Flow Rate FiO2 12/01/16 14:20 Room Air 2.0 28 12/01/16 14:06 98.4 12/01/16 12:23 98.4 73 14 115/78 96 Room Air 12/01/16 11:15 Room Air 2.0 28 12/01/16 08:13 97.7 74 18 110/77 98 Room Air 12/01/16 04:18 97.7 75 18 106/66 98 Room Air 11/30/16 23:46 97.9 85 19 112/69 95 Room Air 11/30/16 19:54 98.9 80 19 118/82 100 Room Air 11/30/16 16:00 98.1 76 20 120/65 100 Height (Feet): 5 Height (Inches): 4.00 Weight (Pounds): 105 General Appearance: WD/WN, no acute distress HEENT: normocephalic, atraumatic, anicteric, mucous membranes moist Respiratory/Chest: chest wall non-tender, lungs clear, normal breath sounds, no respiratory distress, no accessory muscle use Cardiovascular: normal peripheral pulses, normal rate, regular rhythm, no gallop/murmur, no JVD Abdomen: normal bowel sounds, soft, non tender, no organomegaly, non distended , no mass, no scars Extremities: no cyanosis, no clubbing Skin: no rash, no lesions Laboratory Tests Test 11/30/16 17:40 12/01/16 05:10 Sodium Level 136 mEQ/L (135-145) 139 mEQ/L (135-145) Potassium Level 4.2 mEQ/L (3.4-4.9) 4.0 mEQ/L (3.4-4.9) Chloride Level 98 mEQ/L (98-107) 100 mEQ/L (98-107) Carbon Dioxide Level 24 mEQ/L (20-30) 26 mEQ/L (20-30) Anion Gap 14 (5-15) 13 (5-15) Blood Urea Nitrogen 28 mg/dL (7-23) H 30 mg/dL (7-23) H Creatinine 4.0 mg/dL (0.5-0.9) H 3.9 mg/dL (0.5-0.9) H Estimat Glomerular Filtration Rate 16.6 mL/min (>60) 17.2 mL/min (>60) Glucose Level 121 mg/dL (74-106) H 85 mg/dL (74-106) Calcium Level 8.1 mg/dL (8.6-10.2) L 8.3 mg/dL (8.6-10.2) L Total Bilirubin 0.3 mg/dL (0.0-1.2) 0.3 mg/dL (0.0-1.2) Aspartate Amino Transf (AST/SGOT) 78 U/L (5-40) H 55 U/L (5-40) H Alanine Aminotransferase (ALT/SGPT) 337 U/L (3-33) H 269 U/L (3-33) H Alkaline Phosphatase 79 U/L (35-104) 60 U/L (35-104) Total Protein 4.7 g/dL (6.6-8.7) L 4.8 g/dL (6.6-8.7) L Albumin 2.7 g/dL (3.5-5.2) L 2.4 g/dL (3.5-5.2) L Globulin 2.0 g/dL 2.4 g/dL Albumin/Globulin Ratio 1.3 (1.0-2.7) 1.0 (1.0-2.7) White Blood Count 8.8 K/UL (4.8-10.8) Red Blood Count 3.53 M/UL (4.20-5.40) L Hemoglobin 10.4 G/DL (12.0-16.0) L Hematocrit 33.3 % (37.0-47.0) L Mean Corpuscular Volume 94 FL (80-99) Mean Corpuscular Hemoglobin 29.6 PG (27.0-31.0) Mean Corpuscular Hemoglobin Concent 31.3 G/DL (32.0-36.0) L Red Cell Distribution Width 14.3 % (11.6-14.8) Platelet Count 212 K/UL (150-450) Mean Platelet Volume 6.3 FL (6.5-10.1) L Neutrophils (%) (Auto) 53.5 % (45.0-75.0) Lymphocytes (%) (Auto) 30.0 % (20.0-45.0) Monocytes (%) (Auto) 8.7 % (1.0-10.0) Eosinophils (%) (Auto) 6.9 % (0.0-3.0) H Basophils (%) (Auto) 1.0 % (0.0-2.0) Iron Level 80 ug/dL (37-145) Total Iron Binding Capacity 215 ug/dL (250-400) L Percent Iron Saturation 37 % (15-50) Unsaturated Iron Binding 135 ug/dL (112-346) Current Medications Medications (Trade) Dose Ordered Sig/Duncan Route PRN Reason Start Time Stop Time Status Last Admin Dose Admin Acetaminophen (Tylenol) 650 mg Q6H PRN ORAL Mild Pain/Temp > 100.5 11/24/16 17:00 12/24/16 16:59 11/25/16 20:30 Dextrose/Sodium Chloride (D5ns) 1,000 ml @ 100 mls/hr Q10H IV 11/27/16 15:30 12/27/16 15:29 11/30/16 18:50 Hydromorphone HCl (Dilaudid) 1 mg Q4H PRN IVP For severe Pain 11/29/16 13:00 12/06/16 23:59 12/01/16 13:36 Lorazepam 1 mg 1 mg Q4H PRN IV For Anxiety 11/25/16 10:30 12/02/16 10:29 12/01/16 07:48 Ondansetron HCl (Zofran) 4 mg Q4H PRN IVP Nausea & Vomiting 11/24/16 16:15 12/24/16 16:14 11/28/16 16:16 Pantoprazole (Protonix) 40 mg DAILY ORAL 11/28/16 11:00 12/28/16 10:59 12/01/16 09:41 Jesus Mccabe M.D. December 01, 2016 14:56
--- NOTE | 2016-12-03 13:01 | Discharge Summary ---
Discharge Summary Hospital Course Date of Admission Nov 24, 2016 at 13:00 Date of Discharge December 01, 2016 at 15:30 Admitting Diagnosis Hepatitis, uncontrolled pain, intractable vomiting NATI Bonnie Gates is a 26 year old female who was admitted on Nov 24, 2016 at 13:00 for Hepatitis,Uncontrolled Pain,Intractable Vomiting Hospital Course [id number] Discharge Discharge Disposition Patient left AMA Discharge Diagnoses: Gretchen Renee NP December 03, 2016 13:01
--- NOTE | 2016-12-04 03:08 | Discharge Summary 2 SIG ---
DATE OF ADMISSION: 11/24/2016 DATE OF DISCHARGE: 12/01/2016 CONSULTANTS: 1. Barry Sharma M.D. 2. Jeovany Stein M.D. 3. Randy Robertson M.D. 4. Ceferino Saavedra M.D. 5. Dl Johnson M.D. 6. Jesus Mccabe M.D. BRIEF HOSPITAL COURSE: The patient is a 26-year-old female, who came into the ED, complaining of abdominal pain. She had been admitted to [facility] for several days and was discharged the day prior to admission. The patient has pancreatitis and had nausea, vomiting, and epigastric pain. On evaluation at ED, the patient had normal lipase, but with elevated LFTs and bilirubin consistent with biliary obstruction. Abdominal ultrasound showed right hepatic lobe echogenic lesion. Otherwise sonographically unremarkable liver, gallbladder, bile duct and pancreas. There was presence of nonobstructive left nephrolithiasis. CT scan of the abdomen showed no overt evidence of acute pancreatitis. No evidence of acute appendicitis, with a liver lesion complex cyst or hemangioma cyst in the right renal cortex and uterine fibroids. The patient was admitted for further workup and was started empirically by Infectious Disease specialist with cefepime and Flagyl. WBC was 20.8. She was also followed by a airbrush painter and was given Dilaudid 1 mg IV p.r.n. pain. Dr. Stein was consulted and was recommended to undergo abdominal MRI to evaluate liver and evaluate hepatic cyst or lesion, but the patient refused. She was given symptomatic treatment for nausea with Zofran p.r.n. and was given proton pump inhibitors. Hepatitis panel was negative. The patient's LFTs continued to rise together with creatinine. Dr. Sharma was consulted. Ultrasound of the kidneys done showed echogenic kidneys with medical renal disease. The patient needed hemodialysis. Dr. Johnson was consulted and placed femoral dialysis catheter. The patient had shock liver, however, AST and ALT are down trending. She needed another hemodialysis, but the patient was reluctant and wants to be discharged AMA. IV lines and a dialysis catheter was removed and the patient left the hospital against medical advise. FINAL DIAGNOSES: 1. Acute renal failure, requiring hemodialysis. 2. Shock liver. 3. Systemic inflammatory response syndrome. 4. Acute pancreatitis. 5. Hepatic lesion. 6. Hepatitis. 7. Severe protein-calorie malnutrition. 8. Noncompliance as the patient signed out against medical advice. Carlos A Dallas M.D. I have been assigned to dictate discharge summary on this account and I was not involved in the patient's management. Gretchen Renee N.P. DR: Jayson JOB#: [id number] CC: [email or web address]
== END 2016-12-01 15:30 | disposition left against medical advice (07) | DRG 279 ==
LOC: EDBD 09:01 → EMR 09:22 → 4W 13:00 → EDBEDREQ 14:07 → 4W 14:18
PROC: 5A1D00Z (ICD-10-PCS; principal; 2016-12-01)
DX: K72.00 Acute and subacute hepatic failure without coma (principal); R65.11 Systemic inflammatory response syndrome (SIRS) of non-infectious origin with acute organ dysfunction; E43 Unspecified severe protein-calorie malnutrition; N17.9 Acute kidney failure, unspecified; K85.90 Acute pancreatitis without necrosis or infection, unspecified; K75.9 Inflammatory liver disease, unspecified; Z91.19 Patient's noncompliance with other medical treatment and regimen; F41.9 Anxiety disorder, unspecified; F40.240 Claustrophobia
CPT/HCPCS: 36415; 36569; 74177; 76700; 76775; 76937; 80053; 80061; 80300; 80329; 81003; 81025; 82140; 82248; 82550; 82977; 83540; 83550; 83690; 83735; 83880; 84100; 84300; 84550; 85007; 85025; 85610; 85730; 86140; 86308; 86703; 86705; 86709; 86803; 87340; 89050; J2405

== ENCOUNTER 2016-12-08 10:52 | Emergency (ER) | payer MEDICAID ==
[~2016-12-08] VITALS: Ht 162.6 cm; Wt 45.4 kg
[~2016-12-08 10:52] MED LIST: NKM
--- NOTE | 2016-12-08 11:16 | Emergency Room Report ---
History of Present Illness General Chief Complaint: Abdominal Pain Source: Patient Present Illness HPI Patient is a 26-year-old female brought in by EMS for increased abdominal pain and vomiting. Patient stated that she had recently been hospitalized for acute renal failure and had several sessions of dialysis. Patient was noted to have some hepatitic inflammation at that time. Patient states she does not drink out use of drugs or alcohol. She denied any fever. She reported having persistent vomiting.She states she's been urinating well. Allergies: Coded Allergies: No Known Allergies (Unverified , 11/24/16) Patient History Past Medical History: see triage record Now: No Reviewed Nursing Documentation: PMH: Agreed, PSxH: Agreed Nursing Documentation-PMH Hx Cardiac Problems: No Hx Hypertension: No Hx Pacemaker: No Hx Asthma: No Hx COPD: No Hx Diabetes: No Hx Cancer: No Hx Gastrointestinal Problems: Yes - pancreatitis Hx Dialysis: No History Of Psychiatric Problem: No Hx Neurological Problems: No Hx Cerebrovascular Accident: No Hx Seizures: No Review of Systems All Other Systems: negative except mentioned in HPI Physical Exam Vital Signs Date Time Temp Pulse Resp B/P Pulse Ox O2 Delivery O2 Flow Rate FiO2 12/08/16 10:49 98.4 66 16 150/90 100 Room Air Sp02 EP Interpretation: reviewed, normal General Appearance: normal inspection, well appearing, no apparent distress, alert, GCS 15 Head: atraumatic ENT: normal ENT inspection, hearing grossly normal, normal voice Neck: normal inspection, full range of motion, supple, no bony tend Respiratory: normal inspection, lungs clear, normal breath sounds, no respiratory distress, no retraction, no wheezing Cardiovascular #1: regular rate, rhythm, no edema Gastrointestinal: normal inspection, normal bowel sounds, non tender, soft, no guarding, no hernia Genitourinary: no CVA tenderness Musculoskeletal: normal inspection, back normal, normal range of motion Neurologic: normal inspection, alert, oriented x3, responsive, supervisor type photography III-XII nml as tested, speech normal Psychiatric: normal inspection, judgement/insight normal, mood/affect normal Skin: normal inspection, normal color, no rash Medical Decision Making Diagnostic Impression: Primary Impression: Abdominal pain ER Course Patient presented for abdominal pain. Differential diagnoses included ischemic bowel, appendicitis, perforated viscus, abdominal aortic aneurysm, inferior myocardial infarction, viral gastroenteritis Because of complexity of patient's case laboratory testing and imaging studies were ordered. I laboratory testing showed improved BUN/creatinine from previous draws one week ago. Patient was given IV fluids as well as IV antiemetics. The patient stated she felt better and wanted to go home. The patient was advised that she would need to have her laboratory testing redrawn in the next 2 days. The patient is advised to follow up with primary care doctor in 1-2 days. Patient is advised to return if any worsening condition or if any changes in status that are concerning. Labs Test 12/08/16 11:00 12/08/16 11:25 Urine Color Pale yellow Urine Appearance Clear Urine pH 8 (4.5-8.0) Urine Specific [place] 1.015 (1.005-1.035) Urine Protein Negative (NEGATIVE) Urine Glucose (UA) Negative (NEGATIVE) Urine Ketones Negative (NEGATIVE) Urine Occult Blood Negative (NEGATIVE) Urine Nitrite Negative (NEGATIVE) Urine Bilirubin Negative (NEGATIVE) Urine Urobilinogen Normal MG/DL (0.0-1.0) Urine Leukocyte Esterase Negative (NEGATIVE) Urine HCG, Qualitative Negative White Blood Count 7.0 K/UL (4.8-10.8) Red Blood Count 3.70 M/UL (4.20-5.40) Hemoglobin 10.8 G/DL (12.0-16.0) Hematocrit 35.9 % (37.0-47.0) Mean Corpuscular Volume 97 FL (80-99) Mean Corpuscular Hemoglobin 29.1 PG (27.0-31.0) Mean Corpuscular Hemoglobin Concent 30.0 G/DL (32.0-36.0) Red Cell Distribution Width 14.5 % (11.6-14.8) Platelet Count 306 K/UL (150-450) Mean Platelet Volume 6.7 FL (6.5-10.1) Neutrophils (%) (Auto) 66.4 % (45.0-75.0) Lymphocytes (%) (Auto) 22.2 % (20.0-45.0) Monocytes (%) (Auto) 6.3 % (1.0-10.0) Eosinophils (%) (Auto) 3.3 % (0.0-3.0) Basophils (%) (Auto) 1.8 % (0.0-2.0) Prothrombin Time 11.1 SEC (9.30-11.50) Prothromb Time International Ratio 1.1 (0.9-1.1) Activated Partial Thromboplast Time 30 SEC (23-33) Sodium Level 139 mEQ/L (135-145) Potassium Level 4.7 mEQ/L (3.4-4.9) Chloride Level 97 mEQ/L (98-107) Carbon Dioxide Level 31 mEQ/L (20-30) Anion Gap 11 (5-15) Blood Urea Nitrogen 15 mg/dL (7-23) Creatinine 1.6 mg/dL (0.5-0.9) Estimat Glomerular Filtration Rate 48.0 mL/min (>60) Glucose Level 93 mg/dL (74-106) Calcium Level 10.0 mg/dL (8.6-10.2) Total Bilirubin 0.6 mg/dL (0.0-1.2) Aspartate Amino Transf (AST/SGOT) 26 U/L (5-40) Alanine Aminotransferase (ALT/SGPT) 73 U/L (3-33) Alkaline Phosphatase 74 U/L (35-104) Troponin I < 0.30 ng/mL (<=0.30) Total Protein 6.6 g/dL (6.6-8.7) Albumin 3.5 g/dL (3.5-5.2) Globulin 3.1 g/dL Albumin/Globulin Ratio 1.1 (1.0-2.7) Lipase 21 U/L (< 60) Last Vital Signs Date Time Temp Pulse Resp B/P Pulse Ox O2 Delivery O2 Flow Rate FiO2 12/08/16 10:49 98.4 66 16 150/90 100 Room Air Status: improved Disposition: HOME, SELF-CARE Condition: Stable Scripts Ondansetron (Zofran) 4 Mg Tablet 4 MG ORAL Q6H Y for Nausea & Vomiting, #30 TAB 0 Refills Prov: Jose Franklin 12/08/16 Jose Franklin December 08, 2016 11:16
[2016-12-08 11:30] LABS: APPEARANCE,URINE CLEAR; KETONES,URINE NEGATIVE (NEGATIVE); LEUKOCYTE ESTERASE ,URINE NEGATIVE (NEGATIVE); NITRITE,URINE NEGATIVE (NEGATIVE); PH,URINE 8 (4.5-8.0); PROTEIN,URINE NEGATIVE (NEGATIVE); UROBILINOGEN,URINE NORMAL MG/DL (0.0-1.0)
[2016-12-08] MEDS ORDERED: Morphine Sulfate 4mg/ml Inj IVP ONE (11:30)
[2016-12-08] MEDS ORDERED: Famotidine 20 MG/ 2ML VIAL IVP ONE (11:30)
[2016-12-08 11:35] VITALS: BP 162/104
[2016-12-08 11:48] LABS: BASOPHILS % (AUTO) 1.8 % (0.0-2.0); EOSINOPHILS % (AUTO) 3.3 % (0.0-3.0); LYMPHOCYTES % (AUTO) 22.2 % (20.0-45.0); MEAN CORPUSCULAR HEMOGLOBIN 29.1 PG (27.0-31.0); MEAN CORPUSCULAR VOLUME 97 FL (80-99); MEAN PLATELET VOLUME 6.7 FL (6.5-10.1); MONOCYTES % (AUTO) 6.3 % (1.0-10.0); NEUTROPHILS % (AUTO) 66.4 % (45.0-75.0); PLATELET COUNT 306 K/UL (150-450); RED CELL DISTRIBUTION WIDTH 14.5 % (11.6-14.8)
[2016-12-08 11:50] LABS: ALBUMIN/GLOBULIN RATIO 1.1 (1.0-2.7); CREATININE 1.6 mg/dL (0.5-0.9); POTASSIUM 4.7 mEQ/L (3.4-4.9); TOTAL PROTEIN 6.6 g/dL (6.6-8.7); TROPONIN I < 0.30 ng/mL (<=0.30)
[2016-12-08 11:53] LABS: INR 1.1 (0.9-1.1); PROTHROMBIN TIME 11.1 SEC (9.30-11.50)
[2016-12-08 13:00] VITALS: BP 164/95
[2016-12-08] MEDS ORDERED: ZOFRAN4 MG ORAL (13:14)
[2016-12-08 13:53] VITALS: BP 164/95
== END 2016-12-08 13:54 | disposition home or self-care (01) ==
LOC: EDBD 10:52 → EMR 11:15
DX: R10.9 Unspecified abdominal pain (principal); R11.10 Vomiting, unspecified
CPT/HCPCS: 36415; 80053; 81003; 81025; 83690; 84484; 85025; 85610; 85730; 96374; 96375; 99284; J2270; J2405; S0028